=== PATIENT | male | born 1930 | race Caucasian/White ===

== ENCOUNTER → 2016-06-28 | Outpatient (CLI) | payer MEDICARE ==
--- NOTE | 2016-06-28 14:56 | CT ---
EXAMINATION TYPE: CT chest w con DATE OF EXAM: 06/28/2016 2:50 PM COMPARISON: NONE HISTORY: Thoracic aortic aneurysm CT DLP: 452.8 mGycm Automated exposure control for dose reduction was used. CONTRAST: CT scan of the chest is performed with IV Contrast, patient injected with 80 mL of Visipaque 320. FINDINGS: LUNGS: The lungs are grossly clear, there is no concerning parenchymal mass or nodule identified. T here is no pleural effusion or pneumothorax seen. The tracheobronchial tree is patent. MEDIASTINUM: There are no greater than 1 cm hilar or mediastinal lymph nodes. No pericardial effusi on is seen. Ascending thoracic aortic aneurysm is again noted and currently measures 4.[address] transverse dimension versus 4.5 cm previously. Mild scattered atheromatous changes noted. Aortic a rch and descending thoracic aorta are of normal caliber. No evidence for dissection or mediastinal he matoma. There is mild cardiomegaly. UPPER ABDOMEN: No significant abnormality appreciated. OTHER: No additional significant abnormality is seen. IMPRESSION: 1. Stable uncomplicated ascending thoracic aortic aneurysm.
--- NOTE | 2016-06-29 09:23 | ECHOF ---
Referral Reason:R01.0 benign cardiac murmur MEASUREMENTS -------- HEIGHT: 172.7 cm WEIGHT: 93.0 kg BP: 127/67 RVIDd: 2.7 cm (< 3.3) IVSd: 1.4 cm (0.6 - 1.1) LVIDd: 3.9 cm (3.9 - 5.3) LVPWd: 1.2 cm (0.6 - 1.1) IVSs: 1.9 cm LVIDs: 2.7 cm LVPWs: 1.7 cm LA Diam: 4.1 cm (2.7 - 3.8) LAESV Index (A-L): 19.70 ml/m Ao Diam: 3.3 cm (2.0 - 3.7) AV Cusp: 1.1 cm (1.5 - 2.6) LA Diam: 3.6 cm (2.7 - 3.8) MV EXCURSION: 12.495 mm (> 18.000) MV EF SLOPE: 71 mm/s (70 - 150) EPSS: 0.5 cm MV E Wili: 0.78 m/s MV DecT: 152 ms MV A Wili: 0.86 m/s MV E/A Ratio: 0.91 AV maxP.74 mmHg AV meanP.55 mmHg AR PHT: 618 ms RAP: 5.00 mmHg RVSP: 20.89 mmHg FINDINGS -------- Sinus rhythm with extra systolic beats. This was a technically adequate study. There is mild concentric left ventricular hypertrophy. Overall left ventricular systolic function is normal with, an EF between 55 - 60 %. The right ventricle is normal in size. Normal LA size by volume 22+/-6 ml/m2. The right atrium is normal in size. Aneurysmal Interatrial septum. Aortic valve is trileaflet and is mildly thickened. There is [id number] aortic regurgitation. There is mild aortic stenosis present. Peak/mean gradient across the Aortic Valve is 27.74mmHg / 14.55mmHg. The mitral valve leaflets are mildly thickened. Mild mitral annular calcification present. Mild mitral regurgitation is present. Mild tricuspid regurgitation present. Trace/mild (physiologic) pulmonic regurgitation. The aortic root size is normal. Normal inferior vena cava with normal inspiratory collapse consistent with estimated right atrial pressure of 5 mmHg. Echo free space may represent effusion or a pericardial fat pad. CONCLUSIONS -------- 1. Sinus rhythm with extra systolic beats. 2. There is [id number] aortic regurgitation. 3. There is mild aortic stenosis present. 4. Peak/mean gradient across the Aortic Valve is 27.74mmHg / 14.55mmHg. 5. The mitral valve leaflets are mildly thickened. 6. Mild mitral annular calcification present. 7. Mild mitral regurgitation is present. 8. Mild tricuspid regurgitation present. 9. Trace/mild (physiologic) pulmonic regurgitation. 10. The aortic root size is normal. 11. Normal inferior vena cava with normal inspiratory collapse consistent with estimated right atrial pressure of 5 mmHg. 12. This was a technically adequate study. 13. Echo free space may represent effusion or a pericardial fat pad. 14. There is mild concentric left ventricular hypertrophy. 15. Overall left ventricular systolic function is normal with, an EF between 55 - 60 %. 16. The right ventricle is normal in size. 17. Normal LA size by volume 22+/-6 ml/m2. 18. The right atrium is normal in size. 19. Aneurysmal Interatrial septum. 20. Aortic valve is trileaflet and is mildly thickened. INDEX CLERK: Abigail Ritchie RDCS
== END | disposition home or self-care (01) ==
LOC: RADCTMAIN 13:42
PROVIDERS: ATTEND Family Medicine
DX: I71.2 Thoracic aortic aneurysm, without rupture (principal); I35.2 Nonrheumatic aortic (valve) stenosis with insufficiency; I34.0 Nonrheumatic mitral (valve) insufficiency; I36.1 Nonrheumatic tricuspid (valve) insufficiency; I37.1 Nonrheumatic pulmonary valve insufficiency; I34.8 Other nonrheumatic mitral valve disorders; I51.7 Cardiomegaly; I25.3 Aneurysm of heart; I49.3 Ventricular premature depolarization; R01.0 Benign and innocent cardiac murmurs
CPT/HCPCS: 93306; 82565; 84520; 71260; 36415; Q9967

== ENCOUNTER → 2017-07-09 | Outpatient (CLI) | payer MEDICARE ==
--- NOTE | 2017-07-09 16:03 | CT ---
EXAMINATION TYPE: CT angio chest DATE OF EXAM: 07/09/2017 COMPARISON: 06/28/2016 HISTORY: Follow up for thoracic aortic aneurysm. CT DLP: 519 mGycm. Automated Exposure Control for Dose Reduction was Utilized. CONTRAST: CTA scan of the thorax is performed with IV Contrast, patient injected with 100ml mL of Isovue 370, p ulmonary embolism protocol. MIP Images are created on CT scanner and reviewed. FINDINGS: LUNGS: The lungs are grossly clear, there is no concerning parenchymal mass or nodule identified. T here is no pleural effusion or pneumothorax seen. The tracheobronchial tree is patent. MEDIASTINUM: There is a conventional branch pattern of the great vessels from the aortic arch. There is no evidence of aortic dissection. No central pulmonary embolus. Main pulmonary artery is enlarged measuring 3.7 cm. Aortic root just above the sinotubular junction is nonenlarged measuring 3.7 cm. As cending thoracic aorta at the level of main pulmonary artery is enlarged again measuring 4.5 cm on se jo 8 image 14. There are no greater than 1 cm hilar or mediastinal lymph nodes. No cardiomegaly or pericardial effusion is seen. Minimal coronary artery calcifications are noted. OTHER: Moderate multilevel degenerative changes of the visualized thoracolumbar spine are seen. IMPRESSION: 1. Stable ascending thoracic aortic aneurysm. No evidence of dissection. 2. Enlargement of the main pulmonary artery suggestive of underlying pulmonary arterial hypertension.
--- NOTE | 2017-07-10 10:46 | ECHOF ---
Referral Reason:I71.2 Thoracic aortic aneurysm, without rupture MEASUREMENTS -------- HEIGHT: 170.2 cm WEIGHT: 93.0 kg BP: IVSd: 0.9 cm (0.6 - 1.1) LVIDd: 4.9 cm (3.9 - 5.3) LVPWd: 1.1 cm (0.6 - 1.1) IVSs: 1.6 cm LVIDs: 2.6 cm LVPWs: 1.5 cm LAESV Index (A-L): 17.15 ml/m Ao Diam: 3.5 cm (2.0 - 3.7) AV Cusp: 1.4 cm (1.5 - 2.6) LA Diam: 2.5 cm (2.7 - 3.8) MV EXCURSION: 15.618 mm (> 18.000) MV EF SLOPE: 41 mm/s (70 - 150) EPSS: 0.6 cm MV E Wili: 0.90 m/s MV DecT: 252 ms MV A Wili: 0.99 m/s MV E/A Ratio: 0.91 AV maxP.15 mmHg AV meanP.49 mmHg AR PHT: 428 ms RAP: 5.00 mmHg RVSP: 34.52 mmHg FINDINGS -------- Sinus rhythm with extra systolic beats. This was a technically good study. The left ventricular size is normal. Left ventricular wall thickness is normal. Overall left vent ricular systolic function is normal with, an EF between 55 - 60 %. The right ventricle is normal in size and function. The left atrium is normal in size. The right atrium is normal in size. Possible PFO Aortic valve is trileaflet and is mildly thickened. There is mild aortic regurgitation. There is mild aortic stenosis present. Peak/mean gradient across the Aortic Valve is 23.15mmHg / 16.49mmHg. Mild mitral regurgitation is present. Mild tricuspid regurgitation present. The right ventricular systolic pressure, as measured by Doppl er, is 34.52mmHg. Pulmonic valve appears structurally normal. The aortic root size is normal. Normal inferior vena cava with normal inspiratory collapse consistent with estimated right atrial pre ssure of 5 mmHg. There is a trivial pericardial effusion present. CONCLUSIONS -------- 1. Sinus rhythm with extra systolic beats. 2. This was a technically good study. 3. The left ventricular size is normal. 4. Left ventricular wall thickness is normal. 5. Overall left ventricular systolic function is normal with, an EF between 55 - 60 %. 6. The right ventricle is normal in size and function. 7. The left atrium is normal in size. 8. The right atrium is normal in size. 9. Possible PFO 10. Aortic valve is trileaflet and is mildly thickened. 11. There is mild aortic regurgitation. 12. There is mild aortic stenosis present. 13. Peak/mean gradient across the Aortic Valve is 23.15mmHg / 16.49mmHg. 14. Mild mitral regurgitation is present. 15. Mild tricuspid regurgitation present. 16. The right ventricular systolic pressure, as measured by Doppler, is 34.52mmHg. 17. Pulmonic valve appears structurally normal. 18. The aortic root size is normal. 19. Normal inferior vena cava with normal inspiratory collapse consistent with estimated right atrial pressure of 5 mmHg. 20. There is a trivial pericardial effusion present. TEST CONDUCTOR: Kasia Jones RDCS
== END | disposition home or self-care (01) ==
LOC: RADECHMAIN 14:40
PROVIDERS: ATTEND Family Medicine
DX: I71.2 Thoracic aortic aneurysm, without rupture (principal); I08.3 Combined rheumatic disorders of mitral, aortic and tricuspid valves; I77.89 Other specified disorders of arteries and arterioles; I31.3 Pericardial effusion (noninflammatory)
CPT/HCPCS: 93306; 82565; 84520; 71275; 36415; Q9967

== ENCOUNTER → 2018-09-07 | Outpatient (CLI) | payer MEDICARE ==
--- NOTE | 2018-09-07 14:45 | US ---
"EXAMINATION TYPE: US venous doppler duplex LE RT DATE OF EXAM: 09/07/2018 2:18 PM COMPARISON: NONE CLINICAL HISTORY: R60.0 Edema. Right leg swelling intermittently x 3 to 4 weeks; chronic right knee infection; right hip replacement with titanium sonia; HX of thoracic AA per patient SIDE PERFORMED: Right TECHNIQUE: The lower extremity deep venous system is examined utilizing real time linear array sonog elvin with graded compression, doppler sonography and color-flow sonography. VESSELS IMAGED: Common Femoral Vein Deep Femoral Vein Greater Saphenous Vein * Femoral Vein Popliteal Vein Small Saphenous Vein * Proximal Calf Veins (* superficial vessels) Grayscale, color doppler, spectral doppler imaging performed of the deep veins of the right lower ext remity. There is normal flow, compressibility, vascular waveforms. Right Leg: Negative for DVT Right Popliteal Artery Aneurysm is noted = 5.3 x 2.8 x 2.6cm. IMPRESSION: 1. No sonographic evidence of deep venous thrombosis within the right lower extremity. 2. 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 A Yellow level critical message alert has been initiated for Power Chamberlain DO via the [employer] | Critical Results System on 09/07/2018 2:43 PM. This message alert has been sent to Power hooper DO via the preferences provided by the clinician for the receipt of Radiology Critical Findings. Elroy essage ID [id number]."
--- NOTE | 2018-09-07 17:54 | CT ---
EXAMINATION TYPE: CT angio chest DATE OF EXAM: 09/07/2018 COMPARISON: 07/09/2017 HISTORY: 88-year-old male Thoracic aortic aneurysm. TECHNIQUE: Contiguous axial scanning of the chest performed without and with IV Contrast, patient inj ected with 100 mL of Isovue 370. Delayed coronal/sagittal MIP reconstructions performed. 3-D reconstr uctions generated on a dedicated independent workstation. CT DLP: 1019.9 mGycm Automated exposure control for dose reduction was used. FINDINGS: Heart upper limits of normal in size without pericardial effusion. Ascending aorta mildly aneurysmal at 4.2 cm. Proximal arch is ectatic at 3.9 cm. Conventional vessel branching anatomy. Upper descending thoracic aorta mildly aneurysmal at 3.5 cm. Tortuous descending thoracic aorta. Overall findings are relatively unchanged. Initial noncontrast sequence shows no evidence for acute intramural hematoma. No evidence for aortic dissection. Large caliber to the main right and left pulmonary arteries at 3.2 and 2.9 cm, respectively, suggesti ng underlying pulmonary arterial hypertension. No thoracic lymphadenopathy by CT size criteria. Strandy atelectasis in the lower lungs. No consolidation or pleural effusion. Visualized upper abdomen shows a heterogeneously enhancing 4.2 x 3.1 cm mass lateral left kidney vers us 3.2 x 2.6 cm in retrospect, previously blending with the renal parenchyma. Bones: Moderate to advanced multilevel disc/endplate degenerative change. IMPRESSION: 1. NOTE: SUSPICIOUS HETEROGENEOUSLY ENHANCING SOLID MASS LATERAL LEFT KIDNEY MEASURING 4.2 X 3.1 CM. IN RETROSPECT, THIS WAS SMALLER (3.2 X 2.6 CM) AND BLENDED WITH THE RENAL PARENCHYMA ON THE PRIOR EX AM. FINDINGS HIGHLY SUSPICIOUS FOR RCC. FURTHER APPROPRIATE WORKUP AND MANAGEMENT RECOMMENDED. 2. STABLE MILDLY ANEURYSMAL THORACIC AORTA (ASCENDING 4.2 CM AND UPPER DESCENDING 3.5 CM). 3. FINDINGS SUGGEST UNDERLYING PULMONARY ARTERIAL HYPERTENSION.
== END | disposition home or self-care (01) ==
LOC: RADUSWWP 13:46
PROVIDERS: ATTEND Family Medicine
DX: I71.2 Thoracic aortic aneurysm, without rupture (principal); R60.0 Localized edema; I72.4 Aneurysm of artery of lower extremity
CPT/HCPCS: 82565; 84520; 93971; 71275; 36415; Q9967

== ENCOUNTER → 2018-09-29 | Outpatient (CLI) | payer MEDICARE ==
--- NOTE | 2018-09-30 11:27 | ECHOF ---
Referral Reason:I38 Endocarditis MEASUREMENTS -------- HEIGHT: 170.2 cm WEIGHT: 90.7 kg BP: 122/73 RVIDd: 3.3 cm (< 3.3) IVSd: 1.4 cm (0.6 - 1.1) LVIDd: 4.5 cm (3.9 - 5.3) LVPWd: 1.2 cm (0.6 - 1.1) IVSs: 1.9 cm LVIDs: 3.0 cm LVPWs: 1.4 cm LA Diam: 3.7 cm (2.7 - 3.8) LAESV Index (A-L): 26.29 ml/m Ao Diam: 3.5 cm (2.0 - 3.7) AV Cusp: 1.1 cm (1.5 - 2.6) EPSS: 0.7 cm MV E Wili: 0.62 m/s MV DecT: 328 ms MV A Wili: 0.80 m/s MV E/A Ratio: 0.78 AV maxP.90 mmHg AV meanP.26 mmHg AR PHT: 1052 ms RAP: 5.00 mmHg RVSP: 32.60 mmHg MV EF SLOPE: 43.70 mm/s (70 - 150) MV EXCURSION: 1.50 cm (> 18.000) FINDINGS -------- Sinus rhythm. This was a technically adequate study. The left ventricular size is normal. There is moderate concentric left ventricular hypertrophy. O verall left ventricular systolic function is normal with, an EF between 60 - 65 %. The right ventricle is mildly enlarged. Left atrium is normal size by volume. The right atrium is normal in size and function. Interatrial and interventricular septum intact. Aortic valve is trileaflet and is moderately thickened. There is mild aortic regurgitation. There is moderate aortic stenosis present. Peak/mean gradient across the valve is 36.90mmHg / 21.26mmHg. Mild mitral regurgitation is present. Mild tricuspid regurgitation present. Right ventricular systolic pressure is normal at < 35 mmHg. Trace/mild (physiologic) pulmonic regurgitation. The aortic root size is normal. The inferior vena cava was not well visualized. There is no pericardial effusion. CONCLUSIONS -------- 1. Sinus rhythm. 2. This was a technically adequate study. 3. The left ventricular size is normal. 4. There is moderate concentric left ventricular hypertrophy. 5. Overall left ventricular systolic function is normal with, an EF between 60 - 65 %. 6. The right ventricle is mildly enlarged. 7. Left atrium is normal size by volume. 8. The right atrium is normal in size and function. 9. Interatrial and interventricular septum intact. 10. Aortic valve is trileaflet and is moderately thickened. 11. There is mild aortic regurgitation. 12. There is moderate aortic stenosis present. 13. Peak/mean gradient across the valve is 36.90mmHg / 21.26mmHg. 14. Mild mitral regurgitation is present. 15. Mild tricuspid regurgitation present. 16. Right ventricular systolic pressure is normal at < 35 mmHg. 17. Trace/mild (physiologic) pulmonic regurgitation. 18. The aortic root size is normal. 19. The inferior vena cava was not well visualized. 20. There is no pericardial effusion. ELEVATOR CONSTRUCTOR HELPER: JOHNATHON Hoover
== END | disposition home or self-care (01) ==
LOC: RADECHMAIN 12:48
PROVIDERS: ATTEND Family Medicine
DX: I08.3 Combined rheumatic disorders of mitral, aortic and tricuspid valves (principal)
CPT/HCPCS: 93306

== ENCOUNTER → 2018-10-07 | Outpatient (CLI) | payer MEDICARE ==
--- NOTE | 2018-10-07 13:52 | CT ---
CT angiogram of the right lower extremity HISTORY: Popliteal aneurysm Helical acquisition obtained from the mid abdomen through the lower extremities pre- and postadminist ration of 125 cc Isovue 370 IV. Three-dimensional reconstructions performed on an alternate workstati on. No comparisons The distal abdominal aorta shows atheromatous change. Common iliac arteries mildly ectatic. The dista l aorta, common iliac arteries, internal and external iliac arteries are patent, the common femoral, deep and superficial femoral arteries are patent. The central right popliteal artery measures approxi mately 18 mm and shows some eccentric plaque, at the level of the knee joint there is artifact due to patient's knee prosthesis. The artery is thought to measure approximately 3 cm with eccentric, mariaa ar plaque at the level of the knee. Peripheral to this level there is poor opacification of the outfl ow vasculature, three-dimensional reconstruction show patent flow however. There is extensive subcuta neous edema present within the right leg. The left popliteal artery is patent. Portions are obscured as on the right. There are outflow vessels seen, the peroneal and posterior tibial arteries are thoug ht to enhance into the mid to distal leg with certainty, anterior tibial artery not as well seen ojeda ion, reconstructions show patency of the outflow into the foot about the anterior and posterior tibia l arteries bilaterally. The patient shows right hip arthroplasty additionally. There is apparent bone erosion involving the a cetabulum, screws project into the iliac is musculature. Ectopic new bone formation is present about the right hip. Femoral component extends to the level of the knee, large amount of fragmented bone is present, the right femur is not intact. Large amount of bone resorption, erosion. Sclerotic change present at the sacroiliac joints, likely degenerative. Degenerative disc changes are present in the lower lumbar spine. There is associated facet arthropathy. Diverticular changes assoc iated with the sigmoid colon. Prostate shows associated calcification. IMPRESSION: No exam is limited by patient's knee arthroplasties. Right popliteal artery aneurysm. Sub cutaneous edema. The right femur is largely been resorbed, the prosthesis extends from the hip to the knee as described.
== END | disposition home or self-care (01) ==
LOC: RADCTMAIN 08:38
PROVIDERS: ATTEND Thoracic Surgery (Cardiothoracic Vascular Surgery)
DX: I72.4 Aneurysm of artery of lower extremity (principal); Z96.653 Presence of artificial knee joint, bilateral; Z96.641 Presence of right artificial hip joint
CPT/HCPCS: 82565; 84520; 36415; 73706; Q9967

== ENCOUNTER 2018-11-20 22:50 | Inpatient (IN) | payer MEDICARE ==
[2018-11-20] MEDS ORDERED: SODIUM CHLORIDE 0.9% 1,000 ML IV STA (23:32)
[2018-11-21 00:06] LABS: Partial Thromboplastin Time 23.9 sec (22.0-30.0); Prothrombin Time 10.6 sec (9.0-12.0)
[2018-11-21 00:07] LABS: Basophils # (A) 0.1 k/uL (0-0.2); Basophils % (A) 1 %; Eosinophils # (A) 0.5 k/uL (0-0.7); Eosinophils % (A) 5 %; HCT 38.4 % (39.0-53.0); HGB 12.8 gm/dL (13.0-17.5); Lymphocytes # (A) 1.3 k/uL (1.0-4.8); Lymphocytes % (A) 13 %; MCH 30.1 pg (25.0-35.0); MCHC 33.4 g/dL (31.0-37.0); MCV 90.3 fL (80.0-100.0); Mean Platelet Volume 7.3; Monocytes # (A) 0.8 k/uL (0-1.0); Monocytes % (A) 8 %; Neutrophils # (A) 7.6 k/uL (1.3-7.7); Neutrophils % (A) 73 %; Platelet Count 307 k/uL (150-450); RBC 4.25 m/uL (4.30-5.90); RDW 14.5 % (11.5-15.5); WBC 10.4 k/uL (3.8-10.6)
[2018-11-21 00:09] LABS: Albumin 3.7 g/dL (3.5-5.0); Calcium 9.1 mg/dL (8.4-10.2); Magnesium 1.8 mg/dL (1.6-2.3); Potassium 4.9 mmol/L (3.5-5.1); Total Protein 6.7 g/dL (6.3-8.2)
[2018-11-21 01:14] LABS: Appearance,Urine Clear (Clear); Bilirubin,Urine Negative (Negative); Blood,Urine Negative (Negative); Color,Urine Yellow; Glucose,Urine (UA) Negative (Negative); Ketones,Urine Negative (Negative); Leukocyte Esterase,Urine Negative (Negative); Nitrite,Urine Negative (Negative); PH, Urine 5.5 (5.0-8.0); Protein,Urine Trace (Negative); Specific Gravity,Urine 1.045 (1.001-1.035); Urobilinogen,Urine <2.0 mg/dL (<2.0)
--- NOTE | 2018-11-21 01:48 | CT ---
EXAM: CT Angiography Chest With Intravenous Contrast CLINICAL HISTORY: Chest pain and abdominal pain. TECHNIQUE: Axial computed tomographic angiography images of the chest with intravenous contrast using pulmonary embolism protocol. CTDI is 12.3 mGy and DLP is 688 mGy-cm. This CT exam was performed using one or more of the following dose reduction techniques: automated exposure control, adjustment of the mA and/or kV according to patient size, and/or use of iterative reconstruction technique. MIP reconstructed images were created and reviewed. COMPARISON: 09/07/2018. FINDINGS: Pulmonary arteries: No central pulmonary embolism is noted. Limited evaluation of the peripheral branches of the pulmonary arteries which are grossly unremarkable. Aorta: Ascending thoracic aorta is dilated, unchanged from the previous study measuring 5.4 x 4.3 cm. Atherosclerotic disease of the thoracic aorta is noted. Lungs: Subsegmental atelectasis posteriorly at the lung bases. No mass. Pleural space: Unremarkable. No significant effusion. No pneumothorax. Heart: Mild cardiomegaly. No significant pericardial effusion. No evidence of RV dysfunction. 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 No acute fracture. No dislocation. Soft tissues: Unremarkable. Lymph nodes: Unremarkable. No enlarged lymph nodes. IMPRESSION: Dilatation of the ascending thoracic aorta, unchanged. No central or peripheral pulmonary embolism. Cardiomegaly. EXAM: CT Angiography Abdomen and Pelvis With Intravenous Contrast CLINICAL HISTORY: Chest pain and abdominal pain. TECHNIQUE: Axial computed tomographic angiography images of the abdomen and pelvis with intravenous contrast. CTDI is 12.3 mGy and DLP is 688 mGy-cm. This CT exam was performed using one or more of the following dose reduction techniques: automated exposure control, adjustment of the mA and/or kV according to patient size, and/or use of iterative reconstruction technique. MIP reconstructed images were created and reviewed. COMPARISON: None. FINDINGS: VASCULATURE: Aorta: Atherosclerotic disease of the abdominal aorta without change in caliber. Arthroscopic disease extends to involve the common iliac arteries. No abdominal aortic aneurysm. No dissection. Celiac trunk and mesenteric arteries: The celiac artery and SMA artery are well-visualized with normal flow demonstrated. Renal arteries are unremarkable. Renal arteries: See above. Iliac arteries: See above. Lung bases: Unremarkable. No mass. No consolidation. ABDOMEN: Liver: Mild fatty infiltration of the liver. Gallbladder and bile ducts: Unremarkable. No calcified stones. No ductal dilation. Pancreas: Unremarkable. No ductal dilation. No mass. Spleen: Unremarkable. No splenomegaly. Adrenals: Unremarkable. No mass. Kidneys and ureters: 4.5 x 3.5 cm enhancing mass lesion in the midpole region of the left kidney, similar to that noted on the previous study of 08/16/2018, highly suggestive of renal cell carcinoma. No hydronephrosis. Stomach and bowel: Diverticulosis. No obstruction. No mucosal thickening. PELVIS: Appendix: No findings to suggest acute appendicitis. Bladder: Unremarkable. No mass. Reproductive: Unremarkable as visualized. ABDOMEN and PELVIS: Intraperitoneal space: Unremarkable. No significant fluid collection. No free air. Bones/joints: Total left hip prosthesis is noted in place with associated artifact which limits evaluation of pelvic anatomy. No acute fracture. No dislocation. Soft tissues: 1 cm umbilical hernia containing mesenteric fat only. Lymph nodes: Unremarkable. No enlarged lymph nodes. 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 Multilevel vacuum disks. 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 Normal flow within the major branches arising from the abdominal aorta. Mass lesion within the left kidney highly worrisome for renal cell carcinoma.
[2018-11-21] MEDS ORDERED: fentaNYL (PF) 50 MCG/ML 2 ML AMP IVP STA (03:02)
[2018-11-21] MEDS ORDERED: NALOXONE 0.4 MG/ML 1 ML VIAL IV PRN (03:04)
--- NOTE | 2018-11-21 03:13 | ED ---
General Adult HPI - General Chief complaint: Fall Stated complaint: Weakness Source: patient, EMS Mode of arrival: EMS Limitations: no limitations - History of Present Illness Initial comments: The patient is an 88 male who presents to the emergency department after he almost sustained a fall at home. The patient states she was getting ready for bed. He was feeling extremely weak. He went into the bathroom when his knees gave out. He did slump over the bathroom sink. His son was able to catch him and lowered him to the floor. He did sustain ecchymosis to his bilateral forearms. He also had a right elbow skin tear. He states that he felt well today. He has been suffering from chronic right lower extremity swelling and pain because of an aneurysm. The patient also has chronic left hip pain. He states that it is "[id number]". He has an appointment with Dr. Virgen coming up. He states he was placed on morphine because of the pain 2 weeks ago. He's been taking the medications as directed. When EMS arrived to the house they found the patient to be hypotensive with a systolic blood pressure of 60. The patient was also tachycardic with a heart rate of 130s. The patient does describe a history of an aortic aneurysm. He is currently denying any chest pain or shortness of breath. No ripping or tearing sensation to his back. He denies any upper or lower extremity numbness. Weakness in his lower extremity has improved. He denies any paralysis. No lumbar or thoracic back pain. Denies any nausea or vomiting. No sick contacts or recent travel. No constipation, diarrhea, melanotic stools or hematochezia. No changes in his urination. There are no alleviating, precipitating or modifying factors - Related Data Home Medications Medication Instructions Recorded Confirmed Lisinopril [Zestril] 2.5 mg PO DAILY 02/01/15 11/20/18 Tamsulosin [Flomax] 0.4 mg PO BID@0100,1300 02/01/15 11/20/18 metFORMIN HCL [Glucophage] 500 mg PO DAILY 02/01/15 11/20/18 rOPINIRole HCL [Requip] 1 mg PO HS 02/01/15 11/20/18 Allergies Allergy/AdvReac Type Severity Reaction Status Date / Time acetaminophen [From Vicodin] Allergy Intermediate Hallucinati Verified 11/20/18 22:53 ons hydrocodone bitartrate Allergy Intermediate Hallucinati Verified 11/20/18 22:53 [From Vicodin] ons tramadol HCl [From Ultram] Allergy Intermediate Confusion Verified 11/20/18 22:53 ibuprofen [From Motrin] Allergy Unknown Verified 11/20/18 22:53 Review of Systems ROS Statement: Those systems with pertinent positive or pertinent negative responses have been documented in the HPI. ROS Other: All systems not noted in ROS Statement are negative. 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; MRSA-Right Hip Past Surgical History: Joint Replacement, Orthopedic Surgery, Prostate Surgery Additional Past Surgical History / Comment(s): rt hip replacement, rt femur replaced with titanium sonia Past Anesthesia/Blood Transfusion Reactions: No Reported Reaction Past Psychological History: No Psychological Hx Reported Smoking Status: Former smoker Past Alcohol Use History: Occasional Past Drug Use History: None Reported - Past Family History Mother Family Medical History: Cancer Additional Family Medical History / Comment(s): breast cancer General Exam Limitations: no limitations General appearance: alert, in no apparent distress Head exam: Present: atraumatic, normocephalic Eye exam: Present: normal appearance, PERRL, EOMI ENT exam: Present: normal oropharynx, mucous membranes dry Neck exam: Present: normal inspection. Absent: tenderness, meningismus Respiratory exam: Present: normal lung sounds bilaterally. Absent: respiratory distress, wheezes, rales, rhonchi Cardiovascular Exam: Present: normal rhythm, tachycardia GI/Abdominal exam: Present: soft. Absent: distended, tenderness Extremities exam: Present: other (significant edema RLE, pain to palpation with decreased ROM of the left hip. 2+ DP and PT pulses) Back exam: Present: normal inspection. Absent: tenderness Neurological exam: Present: alert, oriented X3 Psychiatric exam: Present: normal affect Skin exam: Present: warm, dry, intact, normal color Course Vital Signs 11/20/18 11/20/18 11/20/18 22:53 23:00 23:10 Temperature 98.4 F Pulse Rate 113 H 120 H 111 H Respiratory 18 18 18 Rate Blood Pressure 74/61 74/61 81/52 O2 Sat by Pulse 94 L 91 L 97 Oximetry 11/20/18 11/20/18 11/20/18 23:20 23:30 23:40 Temperature Pulse Rate 110 H 93 98 Respiratory 18 18 18 Rate Blood Pressure 83/42 98/65 94/54 O2 Sat by Pulse 97 98 98 Oximetry 11/21/18 11/21/18 11/21/18 00:20 01:20 01:45 Temperature Pulse Rate 98 84 82 Respiratory 16 18 20 Rate Blood Pressure 89/57 108/65 113/73 O2 Sat by Pulse 98 97 97 Oximetry 11/21/18 11/21/18 02:20 03:00 Temperature Pulse Rate 80 76 Respiratory 18 18 Rate Blood Pressure 103/62 116/89 O2 Sat by Pulse 97 Oximetry EKG Findings - EKG Comments: EKG Findings:: EKG demonstrates a sinus tachycardia with a ventricular rate of 114. AR interval 194. QRS 138. QTC 501. There is a right bundle branch block. No acute ST segment elevations or depressions concerning for ischemic changes Procedures - [facility] Protocol (Time Out) Nurse: Mae Little Medical Decision Making - Medical Decision Making Upon arrival the patient is placed in room 3. He is hooked up to continuous pulse ox and cardiac monitoring. As the patient is hypotensive with a history of aortic aneurysm I did a bedside ultrasound on the patient. There is no acute findings of pericardial tamponade or pericardial effusion. I did attempt to visualize the abdominal aorta however it is difficult due to overlying bowel gas. Patient does have lower extremity pulses which are found by Doppler. Peripheral IV had been established. The patient received 100 mL of normal saline prior to coming to the ED. I did provide the patient with the remainder of the 500 bag. Laboratory studies were conducted. I did recommend sending the patient over for CT of his abdomen and pelvis with contrast without waiting for labs because of his reported history. The patient's did give verbal consent for this. Upon return of laboratory studies is remarkable for a lactic acid of 3.4. CT of the patient's abdomen and pelvis demonstrates no acute aneurysmal rupture or dissection. There is a suspicious left renal mass concerning for carcinoma. I did recommend sending the patient back over for a left hip and pelvis x-ray as well as a lumbar x-ray because of his reported left hip pain. These are performed and the results are reviewed. I will continue the patient on 100 mL of fluid per hour. His blood pressure did improve. I do believe that the pat alexisnt's hypotension is secondary to recent addition of morphine to his medication regimen. The patient is complaining of left hip pain. He did provide him with 50 g of fentanyl. I did recommend admission to the hospital in order to any to trend the patient's blood pressure. The patient did agree to this. He will be admitted to Dr. Brown. The patient remained in hemodynamically stable condi tion and was transported to floor - Lab Data Result diagrams: 11/22/18 05:41 11/23/18 06:12 Lab Results 11/20/18 11/20/18 11/20/18 Range/Units 23:00 23:00 23:00 WBC 10.4 (3.8-10.6) k/uL RBC 4.25 L (4.30-5.90) m/uL Hgb 12.8 L (13.0-17.5) gm/dL Hct 38.4 L (39.0-53.0) % MCV 90.3 (80.0-100.0) fL MCH 30.1 (25.0-35.0) pg MCHC 33.4 (31.0-37.0) g/dL RDW 14.5 (11.5-15.5) % Plt Count 307 (150-450) k/uL Neutrophils % 73 % Lymphocytes % 13 % Monocytes % 8 % Eosinophils % 5 % Basophils % 1 % Neutrophils # 7.6 (1.3-7.7) k/uL Lymphocytes # 1.3 (1.0-4.8) k/uL Monocytes # 0.8 (0-1.0) k/uL Eosinophils # 0.5 (0-0.7) k/uL Basophils # 0.1 (0-0.2) k/uL PT (9.0-12.0) sec INR (<1.2) APTT (22.0-30.0) sec Sodium 139 (137-145) mmol/L Potassium 4.9 (3.5-5.1) mmol/L Chloride 107 (98-107) mmol/L Carbon Dioxide 17 L (22-30) mmol/L Anion Gap 15 mmol/L BUN 35 H (9-20) mg/dL Creatinine 1.30 H (0.66-1.25) mg/dL Est GFR (CKD-EPI)AfAm 57 (>60 ml/min/1.73 sqM) Est GFR (CKD-EPI)NonAf 49 (>60 ml/min/1.73 sqM) Glucose 163 H (74-99) mg/dL Lactic Ac Sepsis Rflx Plasma Lactic Acid Jb 3.4 H* (0.7-2.0) mmol/L Calcium 9.1 (8.4-10.2) mg/dL Magnesium 1.8 (1.6-2.3) mg/dL Total Bilirubin 1.0 (0.2-1.3) mg/dL AST 30 (17-59) U/L ALT 26 (21-72) U/L Alkaline Phosphatase 97 (38-126) U/L Troponin I (0.000-0.034) ng/mL NT-Pro-B Natriuret Pep pg/mL Total Protein 6.7 (6.3-8.2) g/dL Albumin 3.7 (3.5-5.0) g/dL Urine Color Urine Appearance (Clear) Urine pH (5.0-8.0) Ur Specific [place] (1.001-1.035) Urine Protein (Negative) Urine Glucose (UA) (Negative) Urine Ketones (Negative) Urine Blood (Negative) Urine Nitrite (Negative) Urine Bilirubin (Negative) Urine Urobilinogen (<2.0) mg/dL Ur Leukocyte Esterase (Negative) Blood Type Blood Type Confirm Blood Type Recheck Bld Type Recheck Status Antibody Screen Spec Expiration Date 11/20/18 11/20/18 11/20/18 Range/Units 23:00 23:00 23:00 WBC (3.8-10.6) k/uL RBC (4.30-5.90) m/uL Hgb (13.0-17.5) gm/dL Hct (39.0-53.0) % MCV (80.0-100.0) fL MCH (25.0-35.0) pg MCHC (31.0-37.0) g/dL RDW (11.5-15.5) % Plt Count (150-450) k/uL Neutrophils % % Lymphocytes % % Monocytes % % Eosinophils % % Basophils % % Neutrophils # (1.3-7.7) k/uL Lymphocytes # (1.0-4.8) k/uL Monocytes # (0-1.0) k/uL Eosinophils # (0-0.7) k/uL Basophils # (0-0.2) k/uL PT 10.6 (9.0-12.0) sec INR 1.0 (<1.2) APTT 23.9 (22.0-30.0) sec Sodium (137-145) mmol/L Potassium (3.5-5.1) mmol/L Chloride (98-107) mmol/L Carbon Dioxide (22-30) mmol/L Anion Gap mmol/L BUN (9-20) mg/dL Creatinine (0.66-1.25) mg/dL Est GFR (CKD-EPI)AfAm (>60 ml/min/1.73 sqM) Est GFR (CKD-EPI)NonAf (>60 ml/min/1.73 sqM) Glucose (74-99) mg/dL Lactic Ac Sepsis Rflx Plasma Lactic Acid Jb (0.7-2.0) mmol/L Calcium (8.4-10.2) mg/dL Magnesium (1.6-2.3) mg/dL Total Bilirubin (0.2-1.3) mg/dL AST (17-59) U/L ALT (21-72) U/L Alkaline Phosphatase (38-126) U/L Troponin I 0.027 (0.000-0.034) ng/mL NT-Pro-B Natriuret Pep 1040 pg/mL Total Protein (6.3-8.2) g/dL Albumin (3.5-5.0) g/dL Urine Color Urine Appearance (Clear) Urine pH (5.0-8.0) Ur Specific [place] (1.001-1.035) Urine Protein (Negative) Urine Glucose (UA) (Negative) Urine Ketones (Negative) Urine Blood (Negative) Urine Nitrite (Negative) Urine Bilirubin (Negative) Urine Urobilinogen (<2.0) mg/dL Ur Leukocyte Esterase (Negative) Blood Type Blood Type Confirm Blood Type Recheck Bld Type Recheck Status Antibody Screen Spec Expiration Date 11/20/18 11/20/18 11/21/18 Range/Units 23:30 23:35 00:15 WBC (3.8-10.6) k/uL RBC (4.30-5.90) m/uL Hgb (13.0-17.5) gm/dL Hct (39.0-53.0) % MCV (80.0-100.0) fL MCH (25.0-35.0) pg MCHC (31.0-37.0) g/dL RDW (11.5-15.5) % Plt Count (150-450) k/uL Neutrophils % % Lymphocytes % % Monocytes % % Eosinophils % % Basophils % % Neutrophils # (1.3-7.7) k/uL Lymphocytes # (1.0-4.8) k/uL Monocytes # (0-1.0) k/uL Eosinophils # (0-0.7) k/uL Basophils # (0-0.2) k/uL PT (9.0-12.0) sec INR (<1.2) APTT (22.0-30.0) sec Sodium (137-145) mmol/L Potassium (3.5-5.1) mmol/L Chloride (98-107) mmol/L Carbon Dioxide (22-30) mmol/L Anion Gap mmol/L BUN (9-20) mg/dL Creatinine (0.66-1.25) mg/dL Est GFR (CKD-EPI)AfAm (>60 ml/min/1.73 sqM) Est GFR (CKD-EPI)NonAf (>60 ml/min/1.73 sqM) Glucose (74-99) mg/dL Lactic Ac Sepsis Rflx Y Plasma Lactic Acid Jb (0.7-2.0) mmol/L Calcium (8.4-10.2) mg/dL Magnesium (1.6-2.3) mg/dL Total Bilirubin (0.2-1.3) mg/dL AST (17-59) U/L ALT (21-72) U/L Alkaline Phosphatase (38-126) U/L Troponin I (0.000-0.034) ng/mL NT-Pro-B Natriuret Pep pg/mL Total Protein (6.3-8.2) g/dL Albumin (3.5-5.0) g/dL Urine Color Urine Appearance (Clear) Urine pH (5.0-8.0) Ur Specific [place] (1.001-1.035) Urine Protein (Negative) Urine Glucose (UA) (Negative) Urine Ketones (Negative) Urine Blood (Negative) Urine Nitrite (Negative) Urine Bilirubin (Negative) Urine Urobilinogen (<2.0) mg/dL Ur Leukocyte Esterase (Negative) Blood Type B Positive Blood Type Confirm B Positive Blood Type Recheck No Previous Record Bld Type Recheck Status CABO Indicated Antibody Screen NEGATIVE Spec Expiration Date 11/23/2018 - 233411/21/18 Range/Units 00:50 WBC (3.8-10.6) k/uL RBC (4.30-5.90) m/uL Hgb (13.0-17.5) gm/dL Hct (39.0-53.0) % MCV (80.0-100.0) fL MCH (25.0-35.0) pg MCHC (31.0-37.0) g/dL RDW (11.5-15.5) % Plt Count (150-450) k/uL Neutrophils % % Lymphocytes % % Monocytes % % Eosinophils % % Basophils % % Neutrophils # (1.3-7.7) k/uL Lymphocytes # (1.0-4.8) k/uL Monocytes # (0-1.0) k/uL Eosinophils # (0-0.7) k/uL Basophils # (0-0.2) k/uL PT (9.0-12.0) sec INR (<1.2) APTT (22.0-30.0) sec Sodium (137-145) mmol/L Potassium (3.5-5.1) mmol/L Chloride (98-107) mmol/L Carbon Dioxide (22-30) mmol/L Anion Gap mmol/L BUN (9-20) mg/dL Creatinine (0.66-1.25) mg/dL Est GFR (CKD-EPI)AfAm (>60 ml/min/1.73 sqM) Est GFR (CKD-EPI)NonAf (>60 ml/min/1.73 sqM) Glucose (74-99) mg/dL Lactic Ac Sepsis Rflx Plasma Lactic Acid Jb (0.7-2.0) mmol/L Calcium (8.4-10.2) mg/dL Magnesium (1.6-2.3) mg/dL Total Bilirubin (0.2-1.3) mg/dL AST (17-59) U/L ALT (21-72) U/L Alkaline Phosphatase (38-126) U/L Troponin I (0.000-0.034) ng/mL NT-Pro-B Natriuret Pep pg/mL Total Protein (6.3-8.2) g/dL Albumin (3.5-5.0) g/dL Urine Color Yellow Urine Appearance Clear (Clear) Urine pH 5.5 (5.0-8.0) Ur Specific [place] 1.045 H (1.001-1.035) Urine Protein Trace H (Negative) Urine Glucose (UA) Negative (Negative) Urine Ketones Negative (Negative) Urine Blood Negative (Negative) Urine Nitrite Negative (Negative) Urine Bilirubin Negative (Negative) Urine Urobilinogen <2.0 (<2.0) mg/dL Ur Leukocyte Esterase Negative (Negative) Blood Type Blood Type Confirm Blood Type Recheck Bld Type Recheck Status Antibody Screen Spec Expiration Date Disposition Clinical Impression: Fall, Syncope, Aortic aneurysm, Left hip pain, Drug side effects Disposition: ADMITTED IP TO THIS [facility] Condition: Serious Is patient prescribed a controlled substance at d/c from ED?: No Decision to Admit Reason: Admit from EC Decision Date: 11/21/18 Decision Time: 03:13
--- NOTE | 2018-11-21 04:06 | XR ---
EXAM: XR Lumbar Spine, 4 or 5 Views CLINICAL HISTORY: Back pain. TECHNIQUE: Frontal, lateral and oblique views of the lumbar spine. COMPARISON: CT imaging performed on 11/20/2018. FINDINGS: Vertebrae: There is minimal grade 1 retrolisthesis of L4 upon L5 vertebral body. There is minimal retrolisthesis of L3 upon L4 vertebral body. There is minimal retrolisthesis of L2 upon L3 vertebral body. Decrease in height of the L3 vertebral body is noted of indeterminate age. There is levoscoliosis. No acute fracture. Disc spaces: Severe degenerative disc disease is noted. Multilevel vacuum discs are noted. Soft tissues: Unremarkable. IMPRESSION: Advanced degenerative disc disease of the lumbar spine. Minimal decrease in height of the L3 vertebral body of indeterminate age. Magnetic residence imaging will provide additional information.
--- NOTE | 2018-11-21 04:09 | XR ---
EXAM: XR Left Hip With Pelvis When Performed, 1 View CLINICAL HISTORY: Hip pain. TECHNIQUE: Frontal view of the left hip, with pelvis when performed. COMPARISON: None. FINDINGS: Bones/joints: Total right hip prosthesis is noted in place and a normal anatomic position. There is flattening of the left femoral head suggestive of possible avascular necrosis. Advanced osteoarthritic changes about the left hip joint are noted. Mild to moderate osteoarthritic changes about the sacroiliac joints are noted. Advanced degenerative disc disease of the lower lumbar spine is noted. No acute fracture. No dislocation. Soft tissues: Unremarkable. IMPRESSION: Flattening of the left femoral head. Advanced osteoarthritic changes about the left hip joint. 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 Correlation with history is advised.
[2018-11-21 04:24] VITALS: BMI 30.9
[2018-11-21 04:32] LABS: Glucose,Whole Blood 115 mg/dL (75-99)
[2018-11-21] MEDS: INSULIN ASPART (NovoLOG) 100 UNIT/ML VIAL SQ SCH ×4 (08:35→20:47)
[2018-11-21 08:36] LABS: Glucose,Whole Blood 112 mg/dL (75-99)
[2018-11-21] MEDS: metFORMIN 500 MG TAB PO SCH ×2 (08:40→08:42)
[2018-11-21] MEDS ORDERED: LISINOPRIL 2.5 MG TAB PO SCH (09:00)
--- NOTE | 2018-11-21 12:05 | P.CNOR ---
History of Present Illness - HPI Consult date: 11/21/18 Consult reason: other (Left hip pain) History of present illness: The patient's an 88-year-old male who presents with increasing left hip pain. He notes his leg gave out on him yesterday, however he did not fall. He has had progressive left groin and thigh pain since. He has a difficult time weightbearing. Normally he is a community ambulator with a walker. 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; MRSA-Right Hip Past Surgical History: Joint Replacement, Orthopedic Surgery, Prostate Surgery Additional Past Surgical History / Comment(s): rt hip replacement with subsequent infection, rt femur replaced with titanium sonia Past Anesthesia/Blood Transfusion Reactions: No Reported Reaction Past Psychological History: No Psychological Hx Reported Smoking Status: Former smoker Past Alcohol Use History: Occasional Past Drug Use History: None Reported - Past Family History Mother Family Medical History: Cancer Additional Family Medical History / Comment(s): breast cancer Medications and Allergies Home Medications Medication Instructions Recorded Confirmed Type Lisinopril [Zestril] 2.5 mg PO DAILY 02/01/15 11/20/18 History Tamsulosin [Flomax] 0.4 mg PO BID@0100,1300 02/01/15 11/20/18 History metFORMIN HCL [Glucophage] 500 mg PO DAILY 02/01/15 11/20/18 History rOPINIRole HCL [Requip] 1 mg PO HS 02/01/15 11/20/18 History Allergies Allergy/AdvReac Type Severity Reaction Status Date / Time acetaminophen [From Vicodin] Allergy Intermediate Hallucinati Verified 11/20/18 22:53 ons hydrocodone bitartrate Allergy Intermediate Hallucinati Verified 11/20/18 22:53 [From Vicodin] ons tramadol HCl [From Ultram] Allergy Intermediate Confusion Verified 11/20/18 22:53 ibuprofen [From Motrin] Allergy Unknown Verified 11/20/18 22:53 Physical Examination - Hip left Gait: other (Currently nonambulatory) Tenderness with palpation: anterior Pain with motion: internal rotation and hip flexion ROM: extension: 0 degrees ROM: flexion: 70 degrees ROM: abduction: 20 degrees ROM: adduction: 10 degrees ROM: internal rotation: 0 degrees ROM: external rotation: 40 degrees Strength: extension: 5/5 Strength: flexion: 5/5 Strength: abduction: 5/5 Strength: adduction: 5/5 Strength: internal rotation: 5/5 Strength: external rotation: 5/5 (Stocking paresthesias bilaterally) Results - Labs Labs: Abnormal Lab Results - Last 24 Hours (Table) 11/20/18 11/20/18 11/20/18 Range/Units 23:00 23:00 23:00 RBC 4.25 L (4.30-5.90) m/uL Hgb 12.8 L (13.0-17.5) gm/dL Hct 38.4 L (39.0-53.0) % Carbon Dioxide 17 L (22-30) mmol/L BUN 35 H (9-20) mg/dL Creatinine 1.30 H (0.66-1.25) mg/dL Glucose 163 H (74-99) mg/dL POC Glucose (mg/dL) (75-99) mg/dL Plasma Lactic Acid Jb 3.4 H* (0.7-2.0) mmol/L Troponin I (0.000-0.034) ng/mL Ur Specific [place] (1.001-1.035) Urine Protein (Negative) 11/21/18 11/21/18 11/21/18 Range/Units 00:50 04:29 06:44 RBC (4.30-5.90) m/uL Hgb (13.0-17.5) gm/dL Hct (39.0-53.0) % Carbon Dioxide (22-30) mmol/L BUN (9-20) mg/dL Creatinine (0.66-1.25) mg/dL Glucose (74-99) mg/dL POC Glucose (mg/dL) 115 H (75-99) mg/dL Plasma Lactic Acid Jb (0.7-2.0) mmol/L Troponin I 0.138 H* (0.000-0.034) ng/mL Ur Specific [place] 1.045 H (1.001-1.035) Urine Protein Trace H (Negative) 11/21/18 Range/Units 08:35 RBC (4.30-5.90) m/uL Hgb (13.0-17.5) gm/dL Hct (39.0-53.0) % Carbon Dioxide (22-30) mmol/L BUN (9-20) mg/dL Creatinine (0.66-1.25) mg/dL Glucose (74-99) mg/dL POC Glucose (mg/dL) 112 H (75-99) mg/dL Plasma Lactic Acid Jb (0.7-2.0) mmol/L Troponin I (0.000-0.034) ng/mL Ur Specific [place] (1.001-1.035) Urine Protein (Negative) H & H 11/20/18 Range/Units 23:00 Hgb 12.8 L (13.0-17.5) gm/dL Hct 38.4 L (39.0-53.0) % Coagulation 11/20/18 Range/Units 23:00 INR 1.0 (<1.2) Result Diagrams: 11/20/18 23:00 11/20/18 23:00 - Diagnostic results Hip x-ray: image reviewed (Severe left hip osteoarthrosis with flattening of the femoral head, no definite collapse) Assessment and Plan Assessment: 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 No acute surgical intervention is warranted at this point. He does have a follow-up visit with Dr. Reddy next 2 weeks. Time with Patient: Greater than 30
[2018-11-21 12:12] LABS: Glucose,Whole Blood 135 mg/dL (75-99)
[2018-11-21] MEDS ORDERED: TAMSULOSIN 0.4 MG CAP.ER.24H PO SCH (13:00)
--- NOTE | 2018-11-21 13:43 | ECHOF ---
Referral Reason:elevated trop, hypotension MEASUREMENTS -------- HEIGHT: 170.2 cm WEIGHT: 88.9 kg BP: IVSd: 1.4 cm (0.6 - 1.1) LVIDd: 4.1 cm (3.9 - 5.3) LVPWd: 1.4 cm (0.6 - 1.1) EDV(Teich): 72 ml IVSs: 1.7 cm LVIDs: 3.2 cm LVPWs: 0.9 cm %IVS Thck: 20 % ESV(Teich): 42 ml EF(Teich): 42 % %FS: 20 % SV(Teich): 31 ml LA Diam: 4.5 cm (2.7 - 3.8) RVIDd: 3.4 cm (< 3.3) LALs A4C: 4.5 cm LAAs A4C: 16.9 cm LAESV A-L A4C: 54 ml LAESV MOD A4C: 50 ml LALs A2C: 5.0 cm LAAs A2C: 19.0 cm LAESV A-L A2C: 61 ml LAESV MOD A2C: 57 ml LAESV(A-L): 60 ml LAESV Index (A-L): 30.06 ml/m Ao Diam: 3.6 cm (2.0 - 3.7) LA Diam: 4.1 cm (2.7 - 3.8) AV Cusp: 0.8 cm (1.5 - 2.6) EPSS: 0.5 cm MV E Wili: 0.80 m/s MV DecT: 249 ms MV Dec [place]: 3.2 m/s MV A Wili: 0.99 m/s MV E/A Ratio: 0.81 MV PHT: 72 ms LVOT Vmax: 1.03 m/s LVOT maxP.24 mmHg LVOT Vmax: 1.09 m/s LVOT Vmean: 0.73 m/s LVOT maxP.73 mmHg LVOT meanP.47 mmHg LVOT Env.Ti: 341 ms LVOT VTI: 24.8 cm AV Vmax: 3.47 m/s AV maxP.12 mmHg AV Vmax: 3.54 m/s AV Vmean: 2.40 m/s AV maxP.29 mmHg AV meanP.49 mmHg AV Env.Ti: 304 ms AV VTI: 73.1 cm AR Vmax: 3.84 m/s AR maxP.09 mmHg AR PHT: 518 ms AR Dec Time: 1787 ms AR Dec [place]: 2.2 m/s TR Vmax: 2.59 m/s TR maxP.74 mmHg RAP: 5.00 mmHg RVSP: 31.74 mmHg MV EF SLOPE: 51.96 mm/s (70 - 150) MV EXCURSION: 19.44 mm (> 18.000) FINDINGS -------- Undetermined rhythm. This was a technically adequate study. The left ventricular size is normal. There is moderate concentric left ventricular hypertrophy. O verall left ventricular systolic function is normal with, an EF between 55 - 60 %. The right ventricle is normal in size. The left atrium is moderately dilated. LA is moderately dilated 34-39 ml/m2 The right atrial size is normal. There is [id number] aortic stenosis present. Peak/mean gradient across the Aortic Valve is 50.29mmHg / 25.49mmHg. Mild mitral annular calcification present. Mild mitral regurgitation is present. Mild tricuspid regurgitation present. There is no evidence of pulmonary hypertension. The right v entricular systolic pressure, as measured by Doppler, is 31.74mmHg. There is no pulmonic regurgitation present. The aortic root size is normal. There is no pericardial effusion. CONCLUSIONS -------- 1. Undetermined rhythm. 2. This was a technically adequate study. 3. The left ventricular size is normal. 4. There is moderate concentric left ventricular hypertrophy. 5. Overall left ventricular systolic function is normal with, an EF between 55 - 60 %. 6. The right ventricle is normal in size. 7. The left atrium is moderately dilated. 8. LA is moderately dilated 34-39 ml/m2 9. The right atrial size is normal. 10. There is [id number] aortic stenosis present. 11. Peak/mean gradient across the Aortic Valve is 50.29mmHg / 25.49mmHg. 12. Mild mitral annular calcification present. 13. Mild mitral regurgitation is present. 14. Mild tricuspid regurgitation present. 15. There is no evidence of pulmonary hypertension. 16. The right ventricular systolic pressure, as measured by Doppler, is 31.74mmHg. 17. There is no pulmonic regurgitation present. 18. The aortic root size is normal. 19. There is no pericardial effusion. FORGE HELPER: Cecile Morales RDCS
--- NOTE | 2018-11-21 14:07 | CONS ---
CONSULTATION This patient is seen in consultation because of the abnormal troponin. Patient's medical records were reviewed. This patient has significant problem with his joints and recently because of persistent pain, patient was started on morphine. The patient went to the bathroom and subsequently he felt weak and his legs gave way. He did not pass out. When the EMS arrived, patient's blood pressure was 60 and he was tachycardic. The patient does have a history of aortic aneurysm. In the emergency room, patient was evaluated. A CT scan of the chest and abdomen was negative. There was no evidence of any dissection. There was no evidence of any pericardial effusion. No definite fracture is noted. Patient did not complain of any chest pain. This patient has a history of diabetes. No history of hypertension and no prior history of myocardial infarction. PAST MEDICAL HISTORY: Includes multiple joint surgeries with a history of infections in the joint. The patient is a former smoker. This patient was hypotensive for at least a couple of hours in the emergency room. PHYSICAL EXAMINATION: At present, reveals 88-year-old gentleman. He is alert, awake, does not appear to be in any acute distress. Blood pressure now is 140/76 mmHg. HEENT examination is negative. Neck is supple. There is no increase in jugular venous pressure. Both the carotid pulses are felt. There is no bruit. Chest is symmetrical. Heart the PMI is not felt. First and second heart sounds are normal. There is a grade 2/6 ejection systolic murmur noted. Lungs are clinically clear to auscultation and percussion. ABDOMEN: Soft. Extremities: Peripheral pulses are 1+. Patient's EKG shows a normal sinus rhythm without any acute ischemic changes. Plasma lactic acid was 3.4. Initial troponin was 0.027, repeat troponin is 0.138. No significant wall motion abnormality is noted on the echocardiogram. FINAL IMPRESSION: 1. This patient is admitted with a fall. The patient had a significant hypotension as well as elevated lactic acid due to the hypoperfusion. The patient's mild rise in the troponin is probably secondary to most likely secondary to type 2 myocardial injury because of the hypotension and lactic acidosis. There are no EKG changes to suggest acute myocardial infarction. 2. Patient has evidence of moderate degree of aortic stenosis. 3. History of abdominal as well as thoracic aortic aneurysm. RECOMMENDATION: Continue the supportive treatment at present. Symptomatic treatment at present. The patient overall prognosis is guarded. Thank you for the consultation. MMODL / IJN: [id number] /
[2018-11-21] MEDS ORDERED: NAPROXEN 250 MG TAB PO PRN (15:58)
[2018-11-21 16:44] LABS: Glucose,Whole Blood 127 mg/dL (75-99)
[2018-11-21 20:46] LABS: Glucose,Whole Blood 183 mg/dL (75-99)
[2018-11-21] MEDS: TAMSULOSIN 0.4 MG CAP.ER.24H PO SCH (20:49)
--- NOTE | 2018-11-21 21:24 | P.HPIM ---
History of Present Illness H&P Date: 11/21/18 Chief Complaint: Falls History of presenting complaint: This is a pleasant 88-year-old patient of Dr. Chamberlain. Chronic stable medical conditions include asthma, diabetes, hypertension, prostate disorder, peripheral neuropathy. 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 Normally uses a walker to get about. Lives with his and son. Last night patient went to wash up and was heading towards bed. Suddenly felt very weak and dizzy and went down. Patient never passed out to no chest pain no palpitation. No headaches no change in vision. No change in speech. Brought into the ER. No fever no chills. No urinary symptoms no respiratory symptoms. Review of systems: GEN.: Tired EYES: None HEENT: Decreased hearing NECK: None RESPIRATORY: None CARDIOVASCULAR: None GASTROINTESTINAL: None GENITOURINARY: Decreased urine flow MUSCULOSKELETAL: Pain in the joints LYMPHATICS: None HEMATOLOGICAL: None PSYCHIATRY: None NEUROLOGICAL: None Social history: This with his and son. Does use a walker. No alcohol. Does smoke in the past. Family history: Breast cancer Physical examination: VITAL SIGNS: 98.4, 113, 18, 74 x 61, 94% room air GENERAL: BMI 30.7, laying in bed tired appearing. EYES: Pupils equal. Conjunctiva normal. HEENT: External appearance of nose and ears normal, oral cavity grossly normal. NECK: JVD not raised; masses not palpable. HEART: First and second heart sounds are normal; no edema. LUNGS: Respiratory rate normal; decreased breath sounds. ABDOMEN: Soft, nontender, liver spleen not palpable, no masses palpable. PSYCH: Alert and oriented x3; mood and affect normal. NEUROLOGICAL: Cranial nerves grossly intact; no facial asymmetry, power and sensation grossly intact. LYMPHATICS: No lymph nodes palpable in the axilla and neck INVESTIGATIONS, reviewed in the clinical context: White count 10.4 hemoglobin 12.8 platelets 307 potassium 4.9 BUN 35 creatinine 1.3 bicarb 17 lactic acid 3.4 Troponin I 0.0-7 EKG tracing personally reviewed by me shows sinus rhythm, right bundle branch block 2-D echo shows EF of 55-60% moderate to severe aortic stenosis On September 17 bun was 23 and creatinine was 1.06 Assessment: -Near-syncope due to hypotension, due to renal failure -Acute renal failure, with increased creatinine from 1.06-1.3 -Moderate to severe aortic stenosis, nontraumatic -Right bundle-branch block -Lactic acidosis type II, no evidence of infection -Chronic gait dysfunction uses a walker Plan: We'll hold of patient's DEDE inhibitor. Give IV fluids. Fall precautions. Care was discussed with the patient. Will be kept on telemetry. Questions were answered. Add oral bicarbonate. Repeat labs in the morning. 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 Source:: VRE-Right Knee; MRSA-Right Hip Past Surgical History: Joint Replacement, Orthopedic Surgery, Prostate Surgery Additional Past Surgical History / Comment(s): rt hip replacement with subsequent infection, rt femur replaced with titanium sonia Past Anesthesia/Blood Transfusion Reactions: No Reported Reaction Past Psychological History: No Psychological Hx Reported Smoking Status: Former smoker Past Alcohol Use History: Occasional Past Drug Use History: None Reported - Past Family History Mother Family Medical History: Cancer Additional Family Medical History / Comment(s): breast cancer Medications and Allergies Home Medications Medication Instructions Recorded Confirmed Type Lisinopril [Zestril] 2.5 mg PO DAILY 02/01/15 11/20/18 History Tamsulosin [Flomax] 0.4 mg PO BID@0100,1300 02/01/15 11/20/18 History metFORMIN HCL [Glucophage] 500 mg PO DAILY 02/01/15 11/20/18 History rOPINIRole HCL [Requip] 1 mg PO HS 02/01/15 11/20/18 History Allergies Allergy/AdvReac Type Severity Reaction Status Date / Time acetaminophen [From Vicodin] Allergy Intermediate Hallucinati Verified 11/20/18 22:53 ons hydrocodone bitartrate Allergy Intermediate Hallucinati Verified 11/20/18 22:53 [From Vicodin] ons tramadol HCl [From Ultram] Allergy Intermediate Confusion Verified 11/20/18 22:53 ibuprofen [From Motrin] Allergy Unknown Verified 11/20/18 22:53 Physical Exam Vitals: Vital Signs Temp Pulse Pulse Resp BP BP Pulse Ox 11/21/18 16:00 98.1 F 77 18 134/69 98 11/21/18 12:02 97.9 F 73 18 140/76 96 11/21/18 08:00 15 11/21/18 07:00 97.6 F 75 15 124/82 97 11/21/18 04:00 15 11/21/18 03:00 76 18 116/89 11/21/18 02:20 80 18 103/62 97 11/21/18 01:45 82 20 113/73 97 11/21/18 01:20 84 18 108/65 97 11/21/18 00:20 98 16 89/57 98 11/20/18 23:40 98 18 94/54 98 11/20/18 23:30 93 18 98/65 98 11/20/18 23:20 110 H 18 83/42 97 11/20/18 23:10 111 H 18 81/52 97 11/20/18 23:00 120 H 18 74/61 91 L 11/20/18 22:53 98.4 F 113 H 18 74/61 94 L Intake and Output 11/21/18 11/21/18 11/21/18 06:59 14:59 22:59 Intake Total 400 240 200 Output Total 300 300 Balance 400 -60 -100 Intake: Intake, IV Titration 400 Amount Sodium Chloride 0.9% 1, 400 000 ml @ 100 mls/hr IV . Q10H STA Rx#:[id number] Oral 240 200 Output: Urine 300 300 Other: Voiding Method Urinal Urinal # Voids 1 1 Results CBC & Chem 7: 11/20/18 23:00 11/20/18 23:00 Labs: Abnormal Lab Results - Last 24 Hours (Table) 11/20/18 11/20/18 11/20/18 Range/Units 23:00 23:00 23:00 RBC 4.25 L (4.30-5.90) m/uL Hgb 12.8 L (13.0-17.5) gm/dL Hct 38.4 L (39.0-53.0) % Carbon Dioxide 17 L (22-30) mmol/L BUN 35 H (9-20) mg/dL Creatinine 1.30 H (0.66-1.25) mg/dL Glucose 163 H (74-99) mg/dL POC Glucose (mg/dL) (75-99) mg/dL Plasma Lactic Acid Jb 3.4 H* (0.7-2.0) mmol/L Troponin I (0.000-0.034) ng/mL Ur Specific [place] (1.001-1.035) Urine Protein (Negative) 11/21/18 11/21/18 11/21/18 Range/Units 00:50 04:29 06:44 RBC (4.30-5.90) m/uL Hgb (13.0-17.5) gm/dL Hct (39.0-53.0) % Carbon Dioxide (22-30) mmol/L BUN (9-20) mg/dL Creatinine (0.66-1.25) mg/dL Glucose (74-99) mg/dL POC Glucose (mg/dL) 115 H (75-99) mg/dL Plasma Lactic Acid Jb (0.7-2.0) mmol/L Troponin I 0.138 H* (0.000-0.034) ng/mL Ur Specific [place] 1.045 H (1.001-1.035) Urine Protein Trace H (Negative) 11/21/18 11/21/18 11/21/18 Range/Units 08:35 12:09 16:42 RBC (4.30-5.90) m/uL Hgb (13.0-17.5) gm/dL Hct (39.0-53.0) % Carbon Dioxide (22-30) mmol/L BUN (9-20) mg/dL Creatinine (0.66-1.25) mg/dL Glucose (74-99) mg/dL POC Glucose (mg/dL) 112 H 135 H 127 H (75-99) mg/dL Plasma Lactic Acid Jb (0.7-2.0) mmol/L Troponin I (0.000-0.034) ng/mL Ur Specific [place] (1.001-1.035) Urine Protein (Negative) 11/21/18 11/21/18 Range/Units 17:35 20:45 RBC (4.30-5.90) m/uL Hgb (13.0-17.5) gm/dL Hct (39.0-53.0) % Carbon Dioxide (22-30) mmol/L BUN (9-20) mg/dL Creatinine (0.66-1.25) mg/dL Glucose (74-99) mg/dL POC Glucose (mg/dL) 183 H (75-99) mg/dL Plasma Lactic Acid Jb (0.7-2.0) mmol/L Troponin I 0.069 H* (0.000-0.034) ng/mL Ur Specific [place] (1.001-1.035) Urine Protein (Negative) Thrombosis Risk Factor Assmnt - Choose All That Apply Each Risk Factor Represents 3 Points: Age 75 years or older Thrombosis Risk Factor Assessment Total Risk Factor Score: 3 Thrombosis Risk Factor Assessment Level: Moderate Risk
[2018-11-21] MEDS: ACETAMINOPHEN TAB 500 MG TAB PO PRN (21:52)
[2018-11-21] MEDS: LACTATED RINGERS 1,000 ML IV SCH (21:53)
[2018-11-21] MEDS: SODIUM BICARBONATE TAB 650 MG TAB PO SCH (22:35)
[2018-11-22] MEDS: metFORMIN 500 MG TAB PO SCH (05:36)
[2018-11-22 06:05] LABS: Basophils % (A) 1 %; Eosinophils # (A) 0.5 k/uL (0-0.7); Eosinophils % (A) 9 %; HCT 35.8 % (39.0-53.0); HGB 11.7 gm/dL (13.0-17.5); Lymphocytes # (A) 1.3 k/uL (1.0-4.8); Lymphocytes % (A) 22 %; MCH 29.4 pg (25.0-35.0); MCHC 32.7 g/dL (31.0-37.0); MCV 89.9 fL (80.0-100.0); Mean Platelet Volume 6.1; Monocytes # (A) 0.5 k/uL (0-1.0); Monocytes % (A) 9 %; Neutrophils # (A) 3.4 k/uL (1.3-7.7); Neutrophils % (A) 58 %; Platelet Count 273 k/uL (150-450); RBC 3.98 m/uL (4.30-5.90); RDW 13.4 % (11.5-15.5); WBC 5.9 k/uL (3.8-10.6)
[2018-11-22 06:15] LABS: African American GFR (CKD) >90 (>60 ml/min/1.73 sqM); Anion Gap 5 mmol/L; Blood Urea Nitrogen 20 mg/dL (9-20); Calcium 8.5 mg/dL (8.4-10.2); Carbon Dioxide 24 mmol/L (22-30); Chloride 109 mmol/L (98-107); Glucose 104 mg/dL (74-99); Potassium 4.6 mmol/L (3.5-5.1); Sodium 138 mmol/L (137-145)
[2018-11-22 06:28] LABS: Glucose,Whole Blood 103 mg/dL (75-99)
[2018-11-22] MEDS: INSULIN ASPART (NovoLOG) 100 UNIT/ML VIAL SQ SCH ×4 (06:58→21:59)
[2018-11-22] MEDS: LACTATED RINGERS 1,000 ML IV SCH ×2 (08:53→19:40)
[2018-11-22] MEDS: ACETAMINOPHEN TAB 500 MG TAB PO PRN ×2 (08:54→16:06)
[2018-11-22] MEDS: TAMSULOSIN 0.4 MG CAP.ER.24H PO SCH ×2 (08:55→22:03)
[2018-11-22] MEDS: SODIUM BICARBONATE TAB 650 MG TAB PO SCH ×3 (08:55→22:04)
[2018-11-22 11:54] LABS: Glucose,Whole Blood 115 mg/dL (75-99)
--- NOTE | 2018-11-22 13:46 | P.PN ---
Subjective Progress Note Date: 11/22/18 This is an 88-year-old gentleman admitted to the hospital with a fall, he had significant hypotension as well as an elevated lactic acid due to hypoperfusion, patient also has a moderate degree of aortic stenosis and history of abdominal and thoracic aortic aneurysm. He was seen and examined today blood pressure 118/70 with a heart rate in the 70s, 99% on room air. White blood cell count 5.9, hemoglobin 11.7, platelet count 273, sodium 138, potassium 4.6, BUN 20 and creatinine 0.8. Echocardiogram with Doppler study was performed which revealed a normal left ventricular systolic function with moderate to severe aortic stenosis. Objective - Vital Signs Vital signs: Vital Signs Temp 97.8 F 11/22/18 12:00 Pulse 71 11/22/18 12:00 Resp 16 11/22/18 12:00 BP 118/75 11/22/18 12:00 Pulse Ox 99 11/22/18 12:00 Intake & Output 11/21/18 11/22/18 11/22/18 18:59 06:59 18:59 Intake Total 440 240 Output Total 600 100 350 Balance -160 -100 -110 Weight 89.5 kg Intake: Oral 440 240 Output: Urine 600 100 350 Other: Voiding Method Urinal Bedside Commode Urinal # Voids 1 1 # Bowel Movements 1 - Exam PHYSICAL EXAMINATION: GENERAL: 88-year-old gentleman in no acute distress at the time of my examination HEENT: Head is atraumatic, normocephalic. Pupils equal, round. Sclera anicteric. Conjunctiva are clear. Mucous membranes of the mouth are moist. Neck is supple. There is no elevated jugular venous pressure.] bruit is heard. HEART EXAMINATION: There is a grade 2/6 ejection systolic murmur CHEST EXAMINATION: Lungs are clear to auscultation and precussion. No chest wall tenderness is noted on palpation or with deep breathing. ABDOMEN: Soft, nontender. Bowel sounds are heard. No organomegaly noted. EXTREMITIES: 1+ peripheral pulses with no evidence of peripheral edema and no calf tenderness noted. NEUROLOGIC patient is awake, alert and oriented 3. . - Labs CBC & Chem 7: 11/22/18 05:41 11/22/18 05:41 Labs: Abnormal Lab Results - Last 24 Hours (Table) 11/21/18 11/21/1819 Range/Units 16:42 17:35 20:45 RBC (4.30-5.90) m/uL Hgb (13.0-17.5) gm/dL Hct (39.0-53.0) % Chloride (98-107) mmol/L Glucose (74-99) mg/dL POC Glucose (mg/dL) 127 H 183 H (75-99) mg/dL Troponin I 0.069 H* (0.000-0.034) ng/mL 11/22/18 11/22/18 11/22/18 Range/Units 05:41 05:41 06:26 RBC 3.98 L (4.30-5.90) m/uL Hgb 11.7 L (13.0-17.5) gm/dL Hct 35.8 L (39.0-53.0) % Chloride 109 H (98-107) mmol/L Glucose 104 H (74-99) mg/dL POC Glucose (mg/dL) 103 H (75-99) mg/dL Troponin I (0.000-0.034) ng/mL 11/22/18 Range/Units 11:51 RBC (4.30-5.90) m/uL Hgb (13.0-17.5) gm/dL Hct (39.0-53.0) % Chloride (98-107) mmol/L Glucose (74-99) mg/dL POC Glucose (mg/dL) 115 H (75-99) mg/dL Troponin I (0.000-0.034) ng/mL Assessment and Plan Plan: Assessment and plan #1 episode of fall with evidence of significant hypotension #2 abnormality in troponin most likely secondary to type II HI from hypotension and elevated lactic acid #3 moderate aortic stenosis #4 history of abdominal and thoracic aortic aneurysm Plan Echo revealed normal left ventricular systolic function with moderate to severe aortic stenosis. From cardiology's recommendation we will continue this patient on his current medications DNP note has been reviewed, I agree with a documented findings and plan of care. Patient was seen and examined.
[2018-11-22 16:49] LABS: Glucose,Whole Blood 122 mg/dL (75-99)
--- NOTE | 2018-11-22 20:25 | P.PN ---
Progress Note - Text Progress Note Date: 11/22/18 Chief Complaint: Falls History of presenting complaint: This is a pleasant 88-year-old patient of Dr. Chamberlain. Chronic stable medical conditions include asthma, diabetes, hypertension, prostate disorder, peripheral neuropathy. 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 Normally uses a walker to get about. Lives with his and son. Last night patient went to wash up and was heading towards bed. Suddenly felt very weak and dizzy and went down. Patient never passed out to no chest pain no palpitation. No headaches no change in vision. No change in speech. Brought into the ER. No fever no chills. No urinary symptoms no respiratory symptoms. Review of systems: GEN.: Tired EYES: None HEENT: Decreased hearing NECK: None RESPIRATORY: None CARDIOVASCULAR: None GASTROINTESTINAL: None GENITOURINARY: Decreased urine flow MUSCULOSKELETAL: Pain in the joints LYMPHATICS: None HEMATOLOGICAL: None PSYCHIATRY: None NEUROLOGICAL: None Social history: This with his and son. Does use a walker. No alcohol. Does smoke in the past. Family history: Breast cancer Physical examination: VITAL SIGNS: 98.4, 113, 18, 74 x 61, 94% room air GENERAL: BMI 30.7, laying in bed tired appearing. EYES: Pupils equal. Conjunctiva normal. HEENT: External appearance of nose and ears normal, oral cavity grossly normal. NECK: JVD not raised; masses not palpable. HEART: First and second heart sounds are normal; no edema. LUNGS: Respiratory rate normal; decreased breath sounds. ABDOMEN: Soft, nontender, liver spleen not palpable, no masses palpable. PSYCH: Alert and oriented x3; mood and affect normal. NEUROLOGICAL: Cranial nerves grossly intact; no facial asymmetry, power and sensation grossly intact. LYMPHATICS: No lymph nodes palpable in the axilla and neck INVESTIGATIONS, reviewed in the clinical context: White count 10.4 hemoglobin 12.8 platelets 307 potassium 4.9 BUN 35 creatinine 1.3 bicarb 17 lactic acid 3.4 Troponin I 0.0-7 EKG tracing personally reviewed by me shows sinus rhythm, right bundle branch block 2-D echo shows EF of 55-60% moderate to severe aortic stenosis On September 17 bun was 23 and creatinine was 1.06 Assessment: -Near-syncope due to hypotension, due to renal failure -Acute renal failure, with increased creatinine from 1.06-1.3 -Moderate to severe aortic stenosis, nontraumatic -Right bundle-branch block -Lactic acidosis type II, no evidence of infection -Chronic gait dysfunction uses a walker -Troponin leak from hemodynamic mismatch. No evidence of coronary artery syndrome Plan: We'll hold of patient's DEDE inhibitor. Give IV fluids. Fall precautions. Care was discussed with the patient. Will be kept on telemetry. Questions were answered. Add oral bicarbonate. Repeat labs in the morning.
[2018-11-22 21:32] LABS: Glucose,Whole Blood 161 mg/dL (75-99)
[2018-11-23 06:29] LABS: Glucose,Whole Blood 105 mg/dL (75-99)
[2018-11-23] MEDS: metFORMIN 500 MG TAB PO SCH (06:50)
[2018-11-23] MEDS: ACETAMINOPHEN TAB 500 MG TAB PO PRN ×2 (06:51→23:54)
[2018-11-23] MEDS: LACTATED RINGERS 1,000 ML IV SCH ×2 (06:54→12:20)
[2018-11-23] MEDS: INSULIN ASPART (NovoLOG) 100 UNIT/ML VIAL SQ SCH ×4 (06:55→21:38)
[2018-11-23 07:12] LABS: Calcium 8.7 mg/dL (8.4-10.2); Potassium 4.5 mmol/L (3.5-5.1)
[2018-11-23] MEDS: SODIUM BICARBONATE TAB 650 MG TAB PO SCH ×3 (08:59→21:37)
[2018-11-23] MEDS: TAMSULOSIN 0.4 MG CAP.ER.24H PO SCH ×2 (09:00→21:39)
[2018-11-23 11:43] LABS: Glucose,Whole Blood 159 mg/dL (75-99)
--- NOTE | 2018-11-23 11:53 | P.GSCN ---
History of Present Illness Consult date: 11/23/18 Reason for Consult: Urine retention History of present illness: The patient is an 88-year-old gentleman known to me for prostate cancer. He has had previous radiation therapy. He is in the hospital after sustaining a fall. He has known history of orthopedic problems. He is gone in urine retention. The nurses staff is been unable to catheterize patient. This cancer remains in remission. He has not had any real problems voiding prior to the hospitalization. He has had a bladder scan despite urinating of over thousand milliliters of urine residual. He does not feel full. There is been no incontinence or hematuria. He has not had a catheter in some time. 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 Source:: VRE-Right Knee; MRSA-Right Hip Past Surgical History: Joint Replacement, Orthopedic Surgery, Prostate Surgery Additional Past Surgical History / Comment(s): rt hip replacement with subsequent infection, rt femur replaced with titanium sonia Past Anesthesia/Blood Transfusion Reactions: No Reported Reaction Past Psychological History: No Psychological Hx Reported Smoking Status: Former smoker Past Alcohol Use History: Occasional Past Drug Use History: None Reported - Past Family History Mother Family Medical History: Cancer Additional Family Medical History / Comment(s): breast cancer Medications and Allergies Home Medications Medication Instructions Recorded Confirmed Type Lisinopril [Zestril] 2.5 mg PO DAILY 02/01/15 11/20/18 History Tamsulosin [Flomax] 0.4 mg PO BID@0100,1300 02/01/15 11/20/18 History metFORMIN HCL [Glucophage] 500 mg PO DAILY 02/01/15 11/20/18 History rOPINIRole HCL [Requip] 1 mg PO HS 02/01/15 11/20/18 History Allergies Allergy/AdvReac Type Severity Reaction Status Date / Time acetaminophen [From Vicodin] Allergy Intermediate Hallucinati Verified 11/20/18 22:53 ons hydrocodone bitartrate Allergy Intermediate Hallucinati Verified 11/20/18 22:53 [From Vicodin] ons tramadol HCl [From Ultram] Allergy Intermediate Confusion Verified 11/20/18 22:53 ibuprofen [From Motrin] Allergy Unknown Verified 11/20/18 22:53 Surgical - Exam Vital Signs Temp Pulse Resp BP Pulse Ox 98.4 F 113 H 18 74/61 94 L 11/20/18 22:53 11/20/18 22:53 11/20/18 22:53 11/20/18 22:53 11/20/18 22:53 - General well developed, well nourished, no distress - Eyes PERRL - ENT no hearing loss - Neck trachea midline - Respiratory normal expansion, normal respiratory effort - Cardiovascular Rhythm: regular - Abdomen Bladder appears full Abdomen: soft - Genitourinary Uncircumcised. Normal testes epididymis and scrotum - Neurologic normal coordination, normal sensation - Musculoskeletal normal posture - Psychiatric oriented to person, oriented to place, speech is normal, memory intact Results - Labs 11/22/18 05:41 11/23/18 06:12 Abnormal Lab Results - Last 24 Hours (Table) 11/22/18 11/22/18 11/22/18 Range/Units 11:51 16:47 21:30 Glucose (74-99) mg/dL POC Glucose (mg/dL) 115 H 122 H 161 H (75-99) mg/dL 11/23/18 11/23/18 11/23/18 Range/Units 06:12 06:26 11:33 Glucose 114 H (74-99) mg/dL POC Glucose (mg/dL) 105 H 159 H (75-99) mg/dL Diabetes panel 11/23/18 Range/Units 06:12 Sodium 137 (137-145) mmol/L Potassium 4.5 (3.5-5.1) mmol/L Chloride 105 (98-107) mmol/L Carbon Dioxide 23 (22-30) mmol/L BUN 16 (9-20) mg/dL Creatinine 0.87 (0.66-1.25) mg/dL Glucose 114 H (74-99) mg/dL Calcium 8.7 (8.4-10.2) mg/dL Calcium panel 11/23/18 Range/Units 06:12 Calcium 8.7 (8.4-10.2) mg/dL Pituitary panel 11/23/18 Range/Units 06:12 Sodium 137 (137-145) mmol/L Potassium 4.5 (3.5-5.1) mmol/L Chloride 105 (98-107) mmol/L Carbon Dioxide 23 (22-30) mmol/L BUN 16 (9-20) mg/dL Creatinine 0.87 (0.66-1.25) mg/dL Glucose 114 H (74-99) mg/dL Calcium 8.7 (8.4-10.2) mg/dL Adrenal panel 11/23/18 Range/Units 06:12 Sodium 137 (137-145) mmol/L Potassium 4.5 (3.5-5.1) mmol/L Chloride 105 (98-107) mmol/L Carbon Dioxide 23 (22-30) mmol/L BUN 16 (9-20) mg/dL Creatinine 0.87 (0.66-1.25) mg/dL Glucose 114 H (74-99) mg/dL Calcium 8.7 (8.4-10.2) mg/dL Assessment and Plan Assessment: Impression: Urine retention indeterminate cause. history of prostate cancer and radiation therapy. Plan: Oro catheter placement
--- NOTE | 2018-11-23 11:56 | P.PCN ---
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 Placement of 14-Citizen [place] coud-tip catheter. Anesthesia: none Surgeon: Pratik Duckworth Pathology: none sent Condition: stable Indications for Procedure: The patient is in urine retention. The nursing staff is unable to pass a catheter. Description of Procedure: Patient is prepped and draped sterilely. I attempt a 16-Citizen [place] O[place] catheter but meet resistance in the bulbar urethra. I then try a 14-[place] coud-tip catheter but similarly meet resistance in the bulbar urethra. I then pass a 3- Citizen [place] spiral filiform into the bladder. I dilate the urethra through the stricture in the bulbar urethra [id number] followers. I then removed the filiforms and followers and passed a 14-[place]izen [place] coud-tip catheter with approximately thousand cc of urine. The patient tolerated the procedure well. The catheter should remain in place at least 48-72 hours. If the patient goes home before then then I'll remove it in the office as an outpatient.
[2018-11-23 12:49] LABS: Hemoglobin A1C 6.1 % (4.0-6.0)
[2018-11-23 17:04] LABS: Glucose,Whole Blood 156 mg/dL (75-99)
--- NOTE | 2018-11-23 18:09 | P.PN ---
Progress Note - Text Progress Note Date: 11/23/18 Chief Complaint: Falls Interval history: This is a pleasant 88-year-old patient of Dr. Chamberlain. Chronic stable medical conditions include asthma, diabetes, hypertension, prostate disorder, peripheral neuropathy. 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 Normally uses a walker to get about. Lives with his and son. Last night patient went to wash up and was heading towards bed. Suddenly felt very weak and dizzy and went down. Patient never passed out to no chest pain no palpitation. No headaches no change in vision. No change in speech. Brought into the ER. No fever no chills. No urinary symptoms no respiratory symptoms. Patient was diagnosed with hypotension due to acute renal failure, causing him to fall. Today-feeling with better. Did get IV fluids. Did tolerate her diet. Seen by PTOT. Pending going to inpatient rehab Review of systems: Was done for constitutional, cardiovascular, GI, pulmonary. relevant finding as above Active Medications Acetaminophen (Tylenol Tab) 500 mg PO Q8HR PRN PRN Reason: Fever and/ or Pain Last Admin: 11/23/18 06:51 Dose: 500 mg Documented by: Lactated Ringer's (Lactated Ringers) 1,000 mls @ 100 mls/hr IV .Q10H [facility] Last Admin: 11/23/18 12:20 Dose: Not Given Documented by: Insulin Aspart (Novolog) 0 unit SQ [facility]; Protocol Last Admin: 11/23/18 17:24 Dose: 1 unit Documented by: Metformin HCl (Glucophage) 500 mg PO W/BRKFST [facility] Last Admin: 11/23/18 06:50 Dose: 500 mg Documented by: Naloxone HCl (Narcan) 0.2 mg IV Q2M PRN PRN Reason: Opioid Reversal Ropinirole HCl (Requip) 1 mg PO HS [facility] Last Admin: 11/22/18 21:58 Dose: 1 mg Documented by: Sodium Bicarbonate (Sodium Bicarbonate Tab) 325 mg PO TID [facility] Last Admin: 11/23/18 15:20 Dose: 325 mg Documented by: Tamsulosin HCl (Flomax) 0.4 mg PO BID [facility] Last Admin: 11/23/18 09:00 Dose: 0.4 mg Documented by: Physical examination: VITAL SIGNS: 98.2, 93, 16, 1 was 6/73, 98% room air GENERAL: Propped up in bed, a bit tired EYES: Pupils equal. Conjunctiva normal. HEENT: External appearance of nose and ears normal, oral cavity grossly normal. NECK: JVD not raised; masses not palpable. HEART: First and second heart sounds are normal; no edema. LUNGS: Respiratory rate normal; decreased breath sounds. ABDOMEN: Soft, nontender, liver spleen not palpable, no masses palpable. PSYCH: Alert and oriented x3; mood and affect normal. 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 No evidence of coronary artery s yndrome Plan: Patient is clinically looking better. Renal function is much improved. We'll decrease IV fluids. Spoke to social professionals. Looking at possible DC the ECF tomorrow.
[2018-11-23 21:13] LABS: Glucose,Whole Blood 162 mg/dL (75-99)
[2018-11-23 21:40] VITALS: RESP 18
[2018-11-24 05:49] VITALS: BP 128/74; PULSE 73; TEMP 98.1
[2018-11-24 07:24] LABS: Glucose,Whole Blood 103 mg/dL (75-99)
[2018-11-24] MEDS: INSULIN ASPART (NovoLOG) 100 UNIT/ML VIAL SQ SCH ×2 (07:36→12:26)
[2018-11-24] MEDS: metFORMIN 500 MG TAB PO SCH (07:42)
[2018-11-24] MEDS: SODIUM BICARBONATE TAB 650 MG TAB PO SCH (07:42)
[2018-11-24] MEDS: TAMSULOSIN 0.4 MG CAP.ER.24H PO SCH (07:42)
[2018-11-24] MEDS: ACETAMINOPHEN TAB 500 MG TAB PO PRN (07:47)
[2018-11-24 08:37] LABS: Calcium 8.6 mg/dL (8.4-10.2); Potassium 4.4 mmol/L (3.5-5.1)
--- NOTE | 2018-11-24 11:39 | P.DS ---
Providers Date of admission: 11/21/18 03:04 Expected date of discharge: 11/24/18 Attending physician: Ramez Brown Consults: 11/21/18 03:07 Consult Physician Urgent Consulting Provider: Justin Reddy Consult Reason/Comments: intractable left hip pain Do you want consulting provider notified?: Yes 11/21/18 08:24 Consult Physician Urgent Consulting Provider: Rohit Devi Consult Reason/Comments: elevated troponin Do you want consulting provider notified?: Yes 11/23/18 09:18 Consult Physician Urgent Consulting Provider: Pratik Duckworth Consult Reason/Comments: catheter placement for retension Do you want consulting provider notified?: Yes Primary care physician: [facility] Course: Hospital course: This is a pleasant 88-year-old patient of Dr. Chamberlain. Chronic stable medical conditions include asthma, diabetes, hypertension, prostate disorder, peripheral neuropathy. 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 Normally uses a walker to get about. Lives with his and son. Last night patient went to wash up and was heading towards bed. Suddenly felt very weak and dizzy and went down. Patient never passed out to no chest pain no palpitation. No headaches no change in vision. No change in speech. Brought into the ER. No fever no chills. No urinary symptoms no respiratory symptoms. Patient was diagnosed with hypotension due to acute renal failure, causing him to fall. Did better with IV fluids. Creatinine went from 1.3-0.9. Patient with into inpatient rehab. Tolerating a diet. Care was discussed with the patient. Discussed with psychiatric social worker supervisor Discussion and discharge planning more than 35 minutes Consultation: Dr. Chung from urology Physical examination: VITAL SIGNS: 98.1, 73, 18, 128/74, 97% room air GENERAL: Propped up in bed, a bit tired EYES: Pupils equal. Conjunctiva normal. HEENT: External appearance of nose and ears normal, oral cavity grossly normal. NECK: JVD not raised; masses not palpable. HEART: First and second heart sounds are normal; no edema. LUNGS: Respiratory rate normal; decreased breath sounds. ABDOMEN: Soft, nontender, liver spleen not palpable, no masses palpable. PSYCH: Alert and oriented x3; mood and affect normal. 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 No evidence of coronary artery syndrome -Bladder outflow obstruction, requiring Oro catheter, placed by urology Disposition: ECF/[facility] Patient Condition at Discharge: Stable Plan - Discharge Summary Discharge Rx Participant: No New Discharge Prescriptions: Continue rOPINIRole HCL [Requip] 1 mg PO HS metFORMIN HCL [Glucophage] 500 mg PO DAILY Tamsulosin [Flomax] 0.4 mg PO BID@0100,1300 Discontinued Lisinopril [Zestril] 2.5 mg PO DAILY Discharge Medication List Tamsulosin [Flomax] 0.4 mg PO BID@0100,1300 02/01/15 [History] metFORMIN HCL [Glucophage] 500 mg PO DAILY 02/01/15 [History] rOPINIRole HCL [Requip] 1 mg PO HS 02/01/15 [History] Follow up Appointment(s)/Referral(s): Power Chamberlain DO [Primary Care Provider] - 11/25/18 Pratik Duckworth MD [STAFF PHYSICIAN] - 3 Days (for removal of catheter placed inpatient.) Patient Instructions/Handouts: Syncope (DC), Hypotension (DC) Activity/Diet/Wound Care/Special Instructions: discharge with urinary catheter in place. 14 sammarinese urinary catheter placed by Dr. Duckworth 11/23/18 and is to be removed outpatient.
[2018-11-24 12:02] LABS: Glucose,Whole Blood 126 mg/dL (75-99)
--- NOTE | 2018-11-27 03:25 | CDI ---
Documentation Clarification Form Date: 11/27/18 From: Cristóbal Justin Phone: call [phone] Admit Date: 11/21/2018 3:04:00 AM Patient Name: Veronica Francis Visit Number: [id number] Discharge Date: 11/24/2018 2:44:00 PM ATTENTION: The Clinical Documentation Specialists (CDI) and [facility] Coding Staff appreciate your assistance in clarifying documentation. Please respond to the clarification below the line at the bottom and electronically sign. The CDI & [facility] Coding staff will review the response and follow-up if needed. Please note: Queries are made part of the Legal Health Record. If you have any questions, please contact the author of this message via ITS. Dr. Ramez Brown, The patient presented with hypotension related to DWAYNE. History/Risk Factors: Aortic aneurysm, pericardial effusion Clinical Indicators: Troponin elevation Lab findings: troponin 0.138 Other Clinical Indicators: EKG : EKG tracing personally reviewed by me shows sinus rhythm, right bundle branch block Treatment: conservative treatment. Consults: Yolanda Ibrahim. In 11/21 Consult note mentioned as mild troponin elevation secondary to type [address] Yolanda ibrahim and also documented in 11/22 progress note by Alla Aleman NP-Damaris. Later on documented in progress notes and DS notes as mild troponin elevation secondary to hemodynamic mismatch. In your professional opinion, can you please clarify Type 2 IN presence? YES NO Other, please specify Unable to determine Type 2 myocardial infarction secondary to hemodynamic mismatch, POA MTDD
== END 2018-11-24 14:44 | DRG 682 ==
LOC: EC 22:50 → 4SSUR 11-21 03:04 → 3SCARD 11-21 11:59 → 4MS4W 11-23 11:17
PROVIDERS: ADMIT Hospitalist; ATTEND Hospitalist
PROC: 0T9B70Z Drainage of Bladder with Drainage Device, Via Natural or Artificial Opening (ICD-10-PCS; principal; 2018-11-23)
PROC: 0T7D7ZZ Dilation of Urethra, Via Natural or Artificial Opening (ICD-10-PCS; principal; 2018-11-23)
DX: N17.9 Acute kidney failure, unspecified (principal); I21.A1 Myocardial infarction type 2; E87.2 Acidosis; E11.42 Type 2 diabetes mellitus with diabetic polyneuropathy; I71.9 Aortic aneurysm of unspecified site, without rupture; I10 Essential (primary) hypertension; C61 Malignant neoplasm of prostate; I35.0 Nonrheumatic aortic (valve) stenosis; R33.9 Retention of urine, unspecified; N35.912 Unspecified bulbous urethral stricture, male; R33.8 Other retention of urine; G89.29 Other chronic pain; I45.10 Unspecified right bundle-branch block; J45.909 Unspecified asthma, uncomplicated; M16.12 Unilateral primary osteoarthritis, left hip; N28.89 Other specified disorders of kidney and ureter; N32.0 Bladder-neck obstruction; N35.919 Unspecified urethral stricture, male, unspecified site; N42.9 Disorder of prostate, unspecified; W19.XXXA Unspecified fall, initial encounter; Z16.21 Resistance to vancomycin; Z96.641 Presence of right artificial hip joint; B95.2 Enterococcus as the cause of diseases classified elsewhere; B95.62 Methicillin resistant Staphylococcus aureus infection as the cause of diseases classified elsewhere; S51.011A Laceration without foreign body of right elbow, initial encounter; Y92.009 Unspecified place in unspecified non-institutional (private) residence as the place of occurrence of the external cause; Z79.84 Long term (current) use of oral hypoglycemic drugs; Z79.899 Other long term (current) drug therapy; Z80.3 Family history of malignant neoplasm of breast; Z85.46 Personal history of malignant neoplasm of prostate; Z86.14 Personal history of Methicillin resistant Staphylococcus aureus infection; Z86.79 Personal history of other diseases of the circulatory system; Z87.891 Personal history of nicotine dependence; Z92.3 Personal history of irradiation; Z88.6 Allergy status to analgesic agent; Z88.5 Allergy status to narcotic agent; Z98.890 Other specified postprocedural states
CPT/HCPCS: 36415; 71275; 72100; 73502; 74174; 80048; 80053; 81003; 83036; 83605; 83735; 83880; 84484; 85025; 85610; 85730; 86850; 86900; 86901; 93005; 93306; 96361; 96374; 99285

== ENCOUNTER 2019-02-07 04:56 | Emergency (ER) | payer MEDICARE ==
[2019-02-07 05:01] VITALS: RESP 18; TEMP 97.6
--- NOTE | 2019-02-07 05:10 | ED ---
Abdominal Pain HPI - General Chief Complaint: Abdominal Pain Stated Complaint: Male Time Seen by Provider: 02/07/19 05:02 Source: patient, EMS Mode of arrival: EMS - History of Present Illness Initial Comments: This patient is an 88-year-old man who presents to be evaluated for suprapubic abdominal pain and inability urinate. The patient states that over the past few weeks it is been increasingly difficult to urinate, he has seen his doctor who he states was checking him to see if he had a bladder infection. Over the course of last night and into this morning, patient states that he had not been able to pass urine and he feels intense urge to urinate. He also is having some cramping suprapubic pain. No fever or chills. MD Complaint: abdominal pain -: hour(s) Location: suprapubic Radiation: none Severity: moderate Quality: fullness Consistency: constant Improves With: nothing Worsens With: other (Palpation) - Related Data Home Medications Medication Instructions Recorded Confirmed Tamsulosin [Flomax] 0.4 mg PO BID@0100,1300 02/01/15 11/20/18 metFORMIN HCL [Glucophage] 500 mg PO DAILY 02/01/15 11/20/18 rOPINIRole HCL [Requip] 1 mg PO HS 02/01/15 11/20/18 Previous Rx's Medication Instructions Recorded Nitrofurantoin Monohyd/M-Cryst 100 mg PO Q12HR #28 cap 02/07/19 [Macrobid] Allergies Allergy/AdvReac Type Severity Reaction Status Date / Time acetaminophen [From Vicodin] Allergy Intermediate Hallucinati Verified 11/20/18 22:53 ons hydrocodone bitartrate Allergy Intermediate Hallucinati Verified 11/20/18 22:53 [From Vicodin] ons tramadol HCl [From Ultram] Allergy Intermediate Confusion Verified 11/20/18 22:53 ibuprofen [From Motrin] Allergy Unknown Verified 11/20/18 22:53 Review of Systems ROS Statement: Those systems with pertinent positive or pertinent negative responses have been documented in the HPI. ROS Other: All systems not noted in ROS Statement are negative. Constitutional: Denies: fever, chills Respiratory: Denies: cough, dyspnea Cardiovascular: Denies: chest pain, palpitations Gastrointestinal: Reports: as per HPI, abdominal pain. Denies: vomiting, diarrhea Genitourinary: Reports: as per HPI. 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 Source:: VRE-Right Knee; MRSA-Right Hip Past Surgical History: Joint Replacement, Orthopedic Surgery, Prostate Surgery Additional Past Surgical History / Comment(s): rt hip replacement, rt femur replaced with titanium sonia Past Anesthesia/Blood Transfusion Reactions: No Reported Reaction Past Psychological History: No Psychological Hx Reported Smoking Status: Former smoker Past Alcohol Use History: Occasional Past Drug Use History: None Reported - Past Family History Mother Family Medical History: Cancer Additional Family Medical History / Comment(s): breast cancer General Exam General appearance: alert, in no apparent distress Head exam: Present: atraumatic, normocephalic Respiratory exam: Present: normal lung sounds bilaterally. Absent: respiratory distress, wheezes, rales, rhonchi, stridor Cardiovascular Exam: Present: irregular rhythm, systolic murmur. Absent: diastolic murmur, rubs, gallop GI/Abdominal exam: Present: soft, other (Suprapubic fullness consistent with bladder). Absent: distended, tenderness, guarding, rebound, rigid, mass Extremities exam: Present: normal inspection, normal capillary refill. Absent: pedal edema, calf tenderness Back exam: Absent: CVA tenderness (R), CVA tenderness (L) Neurological exam: Present: alert Skin exam: Present: warm, dry, intact, normal color. Absent: rash Course Vital Signs 02/07/19 04:57 Temperature 97.6 F Pulse Rate 102 H Respiratory 18 Rate Blood Pressure 98/65 O2 Sat by Pulse 97 Oximetry Medical Decision Making - Lab Data Lab Results 02/07/19 Range/Units 05:19 Urine Color Yellow Urine Appearance Cloudy (Clear) Urine pH 5.5 (5.0-8.0) Ur Specific [place] 1.015 (1.001-1.035) Urine Protein 1+ H (Negative) Urine Glucose (UA) Negative (Negative) Urine Ketones Negative (Negative) Urine Blood Small H (Negative) Urine Nitrite Positive (Negative) Urine Bilirubin Negative (Negative) Urine Urobilinogen <2.0 (<2.0) mg/dL Ur Leukocyte Esterase Large H (Negative) Urine RBC 12 H (0-5) /hpf Urine WBC >182 H (0-5) /hpf Urine WBC Clumps Many H (None) /hpf Urine Bacteria Many H (None) /hpf Disposition Clinical Impression: Urinary tract infection, Urinary retention Disposition: HOME SELF-CARE Condition: Good Instructions (If sedation given, give patient instructions): Urinary Tract Infection in Men (ED), Oro Catheter Placement and Care (ED) Prescriptions: Nitrofurantoin Monohyd/M-Cryst [Macrobid] 100 mg PO Q12HR #28 cap Is patient prescribed a controlled substance at d/c from ED?: No Referrals: Chava García MD [Primary Care Provider] - 1-2 days Moe Ramos MD [STAFF PHYSICIAN] - 1-2 days
[2019-02-07 05:36] LABS: Appearance,Urine Cloudy (Clear); Bacteria,Urine Many /hpf; Bilirubin,Urine Negative (Negative); Blood,Urine Small (Negative); Color,Urine Yellow; Glucose,Urine (UA) Negative (Negative); Ketones,Urine Negative (Negative); Leukocyte Esterase,Urine Large (Negative); Nitrite,Urine Positive (Negative); PH, Urine 5.5 (5.0-8.0); Protein,Urine 1+ (Negative); RBC,Urine 12 /hpf (0-5); Specific Gravity,Urine 1.015 (1.001-1.035); Urobilinogen,Urine <2.0 mg/dL (<2.0); WBC,Urine >182 /hpf (0-5)
[2019-02-07] MEDS ORDERED: LEVOFLOXACIN 750 MG TAB PO STA (05:58)
[2019-02-07] MEDS ORDERED: NITROFURANTOIN MONOHYD/M-CRYST 100 MG CAP PO STA (06:06)
[2019-02-07] MEDS ORDERED: HYDROcodone/APAP 5-325MG 1 EACH TAB PO STA (06:16)
[2019-02-07 06:25] VITALS: BP 110/84; PULSE 105
== END 2019-02-07 07:08 | disposition home or self-care (01) ==
LOC: EC 04:56
DX: N39.0 Urinary tract infection, site not specified (principal); R33.9 Retention of urine, unspecified; E11.9 Type 2 diabetes mellitus without complications; I10 Essential (primary) hypertension; Z79.84 Long term (current) use of oral hypoglycemic drugs; Z79.899 Other long term (current) drug therapy; Z88.5 Allergy status to narcotic agent; Z88.6 Allergy status to analgesic agent; Z87.891 Personal history of nicotine dependence; Z96.641 Presence of right artificial hip joint
CPT/HCPCS: 51702; 51798; 81001; 87077; 87086; 87186; 99284

== ENCOUNTER 2020-06-16 14:56 | Inpatient (IN) | payer MEDICARE ==
[2020-06-16] MEDS ORDERED: IPRATROPIUM-ALBUTEROL 3 ML NEB INHALATION STA (15:21)
--- NOTE | 2020-06-16 15:29 | ED ---
SOB HPI - General Stated Complaint: GIOVANNI Time Seen by Provider: 06/16/20 15:00 Source: patient, RN notes reviewed, old records reviewed - History of Present Illness Initial Comments: This is an 81-year-old male with a history of COPD/asthma hypertension diabetes chronic indwelling Oro catheter who presents with complaints of shortness of breath. He states has been there for quite a while but Worse today. He is brought in by EMS he did get some relief of his updraft treatment. He denies any fevers chills nausea vomiting sweats or other symptoms. MD Complaint: shortness of breath - Related Data Home Medications Medication Instructions Recorded Confirmed Tamsulosin [Flomax] 0.4 mg PO DAILY 02/01/15 06/16/20 metFORMIN HCL [Glucophage] 500 mg PO DAILY PRN 02/01/15 06/16/20 Albuterol Inhaler [Ventolin Hfa 2 puff INHALATION RT-QID PRN 06/16/20 06/16/20 Inhaler] Albuterol Nebulized [Ventolin 2.5 mg INHALATION RT-QID PRN 06/16/20 06/16/20 Nebulized] Amoxicillin 250 mg PO DAILY 06/16/20 06/16/20 Apixaban [Eliquis] 2.5 mg PO BID 06/16/20 06/16/20 HYDROcodone/APAP 5-325MG [Benson 1 tab PO TID PRN 06/16/20 06/16/20 5-325] Ibuprofen [Advil] 200 mg PO Q8HR PRN 06/16/20 06/16/20 Allergies Allergy/AdvReac Type Severity Reaction Status Date / Time hydrocodone bitartrate AdvReac Intermediate Hallucinati Verified 06/16/20 16:33 [From Vicodin] ons tramadol HCl [From Ultram] AdvReac Intermediate Confusion Verified 06/16/20 16:33 Review of Systems ROS Statement: Those systems with pertinent positive or pertinent negative responses have been documented in the HPI. ROS Other: All systems not noted in ROS Statement are negative. Past Medical History Past Medical History: Asthma, Diabetes Mellitus, Hypertension, Prostate Disorder Additional Past Medical History / Comment(s): wound rt knee History of Any Multi-Drug Resistant Organisms: MRSA Date of last positivie culture/infection: 11/07/16 VRE; 6/29/20 MRSA MDRO Source:: VRE-Right Knee; MRSA-RIGHT KNEE Past Surgical History: Joint Replacement, Orthopedic Surgery, Prostate Surgery Additional Past Surgical History / Comment(s): rt hip replacement, rt femur replaced with titanium sonia Past Anesthesia/Blood Transfusion Reactions: No Reported Reaction Past Psychological History: No Psychological Hx Reported Past Alcohol Use History: Occasional Past Drug Use History: None Reported - Past Family History Mother Family Medical History: Cancer Additional Family Medical History / Comment(s): breast cancer General Exam - General Exam Comments Initial Comments: This is a well-developed well-nourished awake alert oriented 3 male Limitations: no limitations General appearance: alert, in no apparent distress Head exam: Present: atraumatic, normocephalic, normal inspection Eye exam: Present: normal appearance, PERRL, EOMI. Absent: scleral icterus, conjunctival injection, periorbital swelling ENT exam: Present: mucous membranes dry Neck exam: Present: normal inspection, full ROM, other. Absent: tenderness, meningismus, lymphadenopathy Respiratory exam: Present: wheezes, accessory muscle use, decreased breath sounds. Absent: respiratory distress, rales, rhonchi, stridor Cardiovascular Exam: Present: irregular rhythm (No stridor JVD or bruits), systolic murmur. Absent: diastolic murmur, rubs, gallop, clicks GI/Abdominal exam: Present: soft, normal bowel sounds. Absent: distended, tenderness, guarding, rebound, rigid Extremities exam: Present: full ROM, normal capillary refill, pedal edema. Absent: tenderness, joint swelling, calf tenderness Back exam: Present: normal inspection Neurological exam: Present: alert, oriented X3, CN II-XII intact Psychiatric exam: Present: normal affect, normal mood Skin exam: Present: warm, dry, intact, normal color. Absent: rash Course Vital Signs 06/16/20 06/16/20 06/16/20 15:00 16:35 16:41 Temperature 98.1 F Pulse Rate 81 125 H 123 H Respiratory 26 H Rate Blood Pressure 102/72 O2 Sat by Pulse 91 L Oximetry - Reevaluation(s) Reevaluation #1: 06/16/20 17:11 Patient reevaluation reveals he still short of breath and is breast also his wheezing had improved somewhat duration was initially 93. I did discuss the findings with him he will be admitted Medical Decision Making - Medical Decision Making Did discuss findings the patient as well as with Dr. Jackman troponin had not been received at that time nor the: Good. Patient be admitted for inpatient evaluation and treatment the lactic acid elevation is likely on the basis of dehydration at this time - Lab Data Result diagrams: 06/16/20 16:00 06/16/20 16:00 Lab Results 06/16/20 06/16/20 06/16/20 Range/Units 16:00 16:00 16:00 WBC 3.5 L (3.8-10.6) k/uL RBC 5.18 (4.30-5.90) m/uL Hgb 16.0 (13.0-17.5) gm/dL Hct 46.3 (39.0-53.0) % MCV 89.4 (80.0-100.0) fL MCH 30.9 (25.0-35.0) pg MCHC 34.6 (31.0-37.0) g/dL RDW 13.1 (11.5-15.5) % Plt Count 146 L (150-450) k/uL MPV 6.7 Neutrophils % 67 % Lymphocytes % 20 % Monocytes % 9 % Eosinophils % 1 % Basophils % 1 % Neutrophils # 2.3 (1.3-7.7) k/uL Lymphocytes # 0.7 L (1.0-4.8) k/uL Monocytes # 0.3 (0-1.0) k/uL Eosinophils # 0.0 (0-0.7) k/uL Basophils # 0.0 (0-0.2) k/uL PT 10.8 (9.0-12.0) sec INR 1.0 (<1.2) APTT 27.5 (22.0-30.0) sec Sodium 136 L (137-145) mmol/L Potassium 4.4 (3.5-5.1) mmol/L Chloride 100 (98-107) mmol/L Carbon Dioxide 26 (22-30) mmol/L Anion Gap 10 mmol/L BUN 19 (9-20) mg/dL Creatinine 1.05 (0.66-1.25) mg/dL Est GFR (CKD-EPI)AfAm 73 (>60 ml/min/1.73 sqM) Est GFR (CKD-EPI)NonAf 64 (>60 ml/min/1.73 sqM) Glucose 155 H (74-99) mg/dL Plasma Lactic Acid Jb (0.7-2.0) mmol/L Calcium 8.8 (8.4-10.2) mg/dL Magnesium 1.7 (1.6-2.3) mg/dL Total Bilirubin 0.8 (0.2-1.3) mg/dL AST 54 (17-59) U/L ALT 25 (4-49) U/L Alkaline Phosphatase 90 (38-126) U/L Creatine Kinase 277 H (55-170) U/L Troponin I (0.000-0.034) ng/mL NT-Pro-B Natriuret Pep pg/mL Total Protein 6.9 (6.3-8.2) g/dL Albumin 3.9 (3.5-5.0) g/dL Coronavirus (PCR) (Not Detectd) 06/16/20 06/16/20 06/16/20 Range/Units 16:00 16:00 16:00 WBC (3.8-10.6) k/uL RBC (4.30-5.90) m/uL Hgb (13.0-17.5) gm/dL Hct (39.0-53.0) % MCV (80.0-100.0) fL MCH (25.0-35.0) pg MCHC (31.0-37.0) g/dL RDW (11.5-15.5) % Plt Count (150-450) k/uL MPV Neutrophils % % Lymphocytes % % Monocytes % % Eosinophils % % Basophils % % Neutrophils # (1.3-7.7) k/uL Lymphocytes # (1.0-4.8) k/uL Monocytes # (0-1.0) k/uL Eosinophils # (0-0.7) k/uL Basophils # (0-0.2) k/uL PT (9.0-12.0) sec INR (<1.2) APTT (22.0-30.0) sec Sodium (137-145) mmol/L Potassium (3.5-5.1) mmol/L Chloride (98-107) mmol/L Carbon Dioxide (22-30) mmol/L Anion Gap mmol/L BUN (9-20) mg/dL Creatinine (0.66-1.25) mg/dL Est GFR (CKD-EPI)AfAm (>60 ml/min/1.73 sqM) Est GFR (CKD-EPI)NonAf (>60 ml/min/1.73 sqM) Glucose (74-99) mg/dL Plasma Lactic Acid Jb 2.9 H* (0.7-2.0) mmol/L Calcium (8.4-10.2) mg/dL Magnesium (1.6-2.3) mg/dL Total Bilirubin (0.2-1.3) mg/dL AST (17-59) U/L ALT (4-49) U/L Alkaline Phosphatase (38-126) U/L Creatine Kinase (55-170) U/L Troponin I 0.043 H* (0.000-0.034) ng/mL NT-Pro-B Natriuret Pep 1230 pg/mL Total Protein (6.3-8.2) g/dL Albumin (3.5-5.0) g/dL Coronavirus (PCR) (Not Detectd) 06/16/20 Range/Units 16:00 WBC (3.8-10.6) k/uL RBC (4.30-5.90) m/uL Hgb (13.0-17.5) gm/dL Hct (39.0-53.0) % MCV (80.0-100.0) fL MCH (25.0-35.0) pg MCHC (31.0-37.0) g/dL RDW (11.5-15.5) % Plt Count (150-450) k/uL MPV Neutrophils % % Lymphocytes % % Monocytes % % Eosinophils % % Basophils % % Neutrophils # (1.3-7.7) k/uL Lymphocytes # (1.0-4.8) k/uL Monocytes # (0-1.0) k/uL Eosinophils # (0-0.7) k/uL Basophils # (0-0.2) k/uL PT (9.0-12.0) sec INR (<1.2) APTT (22.0-30.0) sec Sodium (137-145) mmol/L Potassium (3.5-5.1) mmol/L Chloride (98-107) mmol/L Carbon Dioxide (22-30) mmol/L Anion Gap mmol/L BUN (9-20) mg/dL Creatinine (0.66-1.25) mg/dL Est GFR (CKD-EPI)AfAm (>60 ml/min/1.73 sqM) Est GFR (CKD-EPI)NonAf (>60 ml/min/1.73 sqM) Glucose (74-99) mg/dL Plasma Lactic Acid Jb (0.7-2.0) mmol/L Calcium (8.4-10.2) mg/dL Magnesium (1.6-2.3) mg/dL Total Bilirubin (0.2-1.3) mg/dL AST (17-59) U/L ALT (4-49) U/L Alkaline Phosphatase (38-126) U/L Creatine Kinase (55-170) U/L Troponin I (0.000-0.034) ng/mL NT-Pro-B Natriuret Pep pg/mL Total Protein (6.3-8.2) g/dL Albumin (3.5-5.0) g/dL Coronavirus (PCR) Detected A (Not Detectd) - EKG Data -: EKG Interpreted by Me EKG Comments: Tachycardia 124 PACs noted. Interval 180 QRS duration 132 QT since QTC 326/468 left exodeviation> block evidence of old inferior changes - Radiology Data Radiology results: report reviewed (Imaging shows evidence of a posterior infiltrate), image reviewed Critical Care Time Critical Care Time: Yes Total Critical Care Time: 32 Critical Care Time: Critical care time including initial presentation with history physical labs x- rays multiple reevaluation the patient discussion with the patient and the findings discussion with the admitting physician admission orders and documentation of the above this also included reviewing old charting was available Disposition Clinical Impression: Acute exacerbation of chronic obstructive pulmonary disease, Acute respiratory distress syndrome in adult, COVID-19, Viral pneumonia, Elevated troponin, Dehydration Disposition: ADMITTED IP TO THIS HOSP Condition: Fair Referrals: Power Chamberlain DO [Primary Care Provider] - 1-2 days
[2020-06-16 16:21] LABS: Basophils % (A) 1 %; Eosinophils % (A) 1 %; HCT 46.3 % (39.0-53.0); Lymphocytes # (A) 0.7 k/uL (1.0-4.8); Lymphocytes % (A) 20 %; MCH 30.9 pg (25.0-35.0); MCHC 34.6 g/dL (31.0-37.0); MCV 89.4 fL (80.0-100.0); Mean Platelet Volume 6.7; Monocytes # (A) 0.3 k/uL (0-1.0); Monocytes % (A) 9 %; Neutrophils # (A) 2.3 k/uL (1.3-7.7); Neutrophils % (A) 67 %; Platelet Count 146 k/uL (150-450); RBC 5.18 m/uL (4.30-5.90); RDW 13.1 % (11.5-15.5); WBC 3.5 k/uL (3.8-10.6)
[2020-06-16 16:30] LABS: Albumin 3.9 g/dL (3.5-5.0); Calcium 8.8 mg/dL (8.4-10.2); Magnesium 1.7 mg/dL (1.6-2.3); Potassium 4.4 mmol/L (3.5-5.1); Total Bilirubin 0.8 mg/dL (0.2-1.3); Total Protein 6.9 g/dL (6.3-8.2)
[2020-06-16 16:35] LABS: Partial Thromboplastin Time 27.5 sec (22.0-30.0); Prothrombin Time 10.8 sec (9.0-12.0)
--- NOTE | 2020-06-16 16:35 | XR ---
EXAMINATION TYPE: XR chest 2V DATE OF EXAM: 06/16/2020 COMPARISON: CT 09/07/2018 HISTORY: 89 year-old male shortness of breath, difficulty breathing TECHNIQUE: AP and lateral views FINDINGS: Heart upper limits of normal in size. Ectasia/tortuosity of the thoracic aorta. There is patchy opaci ty at the posterior mid lung on the lateral view. No pleural effusion. IMPRESSION: Borderline heart size. There is some patchy opacity posterior midlung on the lateral view that could represent atelectasis or developing infiltrate. Clinically correlate.
[2020-06-16] MEDS ORDERED: SODIUM CHLORIDE 0.9% 1,000 ML IV STA (17:10)
[2020-06-16] MEDS ORDERED: methylPREDNISolone SOD SUCCI 125 MG/2 ML VIAL IV STA (17:18)
[2020-06-16] MEDS ORDERED: metFORMIN 500 MG TAB PO PRN (17:20)
[2020-06-16] MEDS ORDERED: HYDROcodone/APAP 5-325MG 1 EACH TAB PO PRN (17:20)
[2020-06-16] MEDS ORDERED: IBUPROFEN 200 MG TAB PO PRN (17:20)
[2020-06-16] MEDS ORDERED: ALBUTEROL HFA INHALER INHALATION PRN (17:20)
[2020-06-16] MEDS ORDERED: dexAMETHasone 2 MG TAB PO STA (17:21)
[2020-06-16] MEDS: SODIUM CHLORIDE 0.9% 1,000 ML IV SCH (19:26)
[2020-06-16] MEDS: AZITHROMYCIN 500 MG in SODIUM CHLORIDE 0.9% 250 ML IVPB SCH (20:42)
[2020-06-16] MEDS: ALPRAZolam 0.25 MG TAB PO PRN (20:42)
[2020-06-16] MEDS: APIXABAN 2.5 MG TABLET PO SCH (20:42)
--- NOTE | 2020-06-16 20:52 | HP ---
HISTORY AND PHYSICAL CHIEF COMPLAINT: Shortness of breath. HISTORY OF PRESENT ILLNESS: This 89-year-old gentleman with a past medical history of asthma, diabetes mellitus, hypertension, history of prostate disorder, history of MRSA, being followed by Dr. Chamberlain in the outpatient setting, was noted to have shortness of breath for the last several days. The patient had indwelling Oro catheter. The patient was brought in by the EMS and the patient was not feeling better even after the treatment. The patient was found to have COPD, acute exacerbation. COVID-19 was found to be positive as well. The chest x-ray done on the admission, which is reviewed personally by me, showed possible right lower lobe infiltrate. Patient was admitted for evaluation. There is no history of any fever, rigor or chills. No history of headache, loss of consciousness, seizures. PAST MEDICAL HISTORY: History of asthma, diabetes mellitus, hypertension, history of prostate disorder, history of MRSA. HOME MEDICATIONS: Metformin, Flomax, Advil, Topmost, Eliquis, amoxicillin, Ventolin. Doses are reviewed. ALLERGIES: VICODIN, ULTRAM. FAMILY HISTORY: History of breast cancer in the family. SOCIAL HISTORY: Previous history of smoking. Occasional alcohol intake. REVIEW OF SYSTEMS: ENT: Diminished hearing. Diminished vision. CARDIOVASCULAR SYSTEM: As mentioned earlier. RESPIRATORY SYSTEM: As mentioned earlier. GI: No nausea, vomiting. : No dysuria or retention. NERVOUS SYSTEM: No numbness, weakness. ALLERGY/IMMUNOLOGY: No asthma, hayfever. MUSCULOSKELETAL: As mentioned earlier. HEMATOLOGY/ONCOLOGY: No history of anemia. ENDOCRINE: No history of diabetes, hypothyroidism. CONSTITUTIONAL: As mentioned earlier. DERMATOLOGY: Negative. RHEUMATOLOGY: Negative. PSYCHIATRY: As mentioned earlier. PHYSICAL EXAMINATION: Patient alert and oriented x3. Pulse is 125, blood pressure 102/72, respiration 26, temperature 98.0, pulse ox 91% on 2 L. HEENT: Conjunctivae normal. Oral mucosa moist. NECK: No jugular venous distention. No carotid bruit. No lymph node enlargement. CARDIOVASCULAR SYSTEM: S1, S2 muffled. RESPIRATORY SYSTEM: Breath sounds diminished at the bases. Scattered rhonchi and crackles. ABDOMEN: Soft, non-tender. LEGS: No edema. No swelling. NERVOUS SYSTEM: No focal deficit. SKIN: No ulcer, rash, bleeding. JOINTS: No active deforming arthropathy. LABS: EKG showed sinus tachycardia with right bundle branch block, possibly atrial fibrillation. Other labs are WBC 3.2, hemoglobin 16, platelets 146. Sodium is 136. D- dimer is 1.81. Lactic acid 2.9. Troponin 0.043. ASSESSMENT: 1. Chronic obstructive pulmonary disease, acute exacerbation, with possible acute right lower lobe pneumonia, possibly community-acquired. 2. Possible acute COVID-19 infection with interstitial viral pneumonia with acute hypoxic respiratory failure. 3. Possible sepsis with elevated lactic acid. 4. Troponin 0.043, indeterminate. 5. Elevated creatine kinase. 6. Hyponatremia. 7. Leukopenia. 8. Thrombocytopenia, possibly secondary to viral infection. 9. History of asthma. 10.Diabetes mellitus, type 2. 11.Hypertension. 12.History of prostate disorder. 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 14.History of degenerative joint disease. 15.History of nicotine dependence remotely. 16.Obesity with body mass index of 31.3. RECOMMENDATIONS AND DISCUSSION: In this 89-year-old gentleman who presented with multiple complex remote medical issues, we will monitor the patient closely, continue the current medications, continue with symptomatic treatment. I recommend bronchodilators. I would also recommend Rocephin and Zithromax for empiric treatment for pneumonia. I would also recommend infectious disease and pulmonary consultations for consideration of remdesivir. Other than that, steroids. Prognosis guarded. Resume the home medications. Prognosis guarded because of multiple complex medical issues. Further recommendations to follow. A copy of this dictation is being forwarded to Dr. Chamberlain, who is the primary physician. JIM / JOSEN: [id number] / PATRICIA
[2020-06-16 23:21] LABS: Glucose,Whole Blood 192 mg/dL (75-99)
[2020-06-17] MEDS: ALBUTEROL HFA INHALER INHALATION SCH ×5 (00:23→20:55)
[2020-06-17 03:42] LABS: Appearance,Urine Clear (Clear); Bacteria,Urine Rare /hpf; Bilirubin,Urine Negative (Negative); Blood,Urine Moderate (Negative); Color,Urine Light Yellow; Glucose,Urine (UA) Negative (Negative); Ketones,Urine Negative (Negative); Leukocyte Esterase,Urine Small (Negative); Nitrite,Urine Negative (Negative); Protein,Urine Trace (Negative); RBC,Urine 6 /hpf (0-5); Specific Gravity,Urine 1.007 (1.001-1.035); Urobilinogen,Urine <2.0 mg/dL (<2.0); WBC,Urine 3 /hpf (0-5)
[2020-06-17] MEDS: SODIUM CHLORIDE 0.9% 1,000 ML IV SCH (04:32)
[2020-06-17] MEDS: ASCORBIC ACID 500 MG TAB PO SCH (08:21)
[2020-06-17] MEDS: CHOLECALCIFEROL 25 MCG (1000 IU) TABLET PO SCH (08:21)
[2020-06-17] MEDS: TAMSULOSIN 0.4 MG CAP.ER.24H PO SCH (08:21)
[2020-06-17] MEDS: ZINC SULFATE 220 MG CAP PO SCH (08:21)
[2020-06-17] MEDS: dexAMETHasone 2 MG TAB PO SCH (08:21)
[2020-06-17] MEDS: PANTOPRAZOLE 40 MG TABLET PO SCH (08:21)
[2020-06-17] MEDS: AZITHROMYCIN 500 MG in SODIUM CHLORIDE 0.9% 250 ML IVPB SCH (08:22)
[2020-06-17 08:27] LABS: Glucose,Whole Blood 204 mg/dL (75-99)
[2020-06-17] MEDS ORDERED: AMOXICILLIN 250 MG CAP PO SCH (09:00)
[2020-06-17] MEDS: APIXABAN 2.5 MG TABLET PO SCH ×2 (09:49→20:49)
[2020-06-17 11:09] LABS: Basophils % (A) 0 %; Eosinophils % (A) 0 %; HCT 43.5 % (39.0-53.0); HGB 14.2 gm/dL (13.0-17.5); Lymphocytes # (A) 0.5 k/uL (1.0-4.8); Lymphocytes % (A) 33 %; MCH 29.5 pg (25.0-35.0); MCHC 32.5 g/dL (31.0-37.0); MCV 90.6 fL (80.0-100.0); Mean Platelet Volume 7.2; Monocytes # (A) 0.1 k/uL (0-1.0); Monocytes % (A) 6 %; Neutrophils # (A) 0.9 k/uL (1.3-7.7); Neutrophils % (A) 59 %; Platelet Count 142 k/uL (150-450); RBC 4.81 m/uL (4.30-5.90); RDW 13.6 % (11.5-15.5)
[2020-06-17 11:12] LABS: WBC 1.6 k/uL (3.8-10.6)
[2020-06-17 11:14] LABS: African American GFR (CKD) >90 (>60 ml/min/1.73 sqM); Anion Gap 9 mmol/L; Blood Urea Nitrogen 20 mg/dL (9-20); Carbon Dioxide 20 mmol/L (22-30); Chloride 108 mmol/L (98-107); Glucose 207 mg/dL (74-99); Non-African American GFR(CKD) 79 (>60 ml/min/1.73 sqM); Potassium 4.9 mmol/L (3.5-5.1); Sodium 137 mmol/L (137-145)
--- NOTE | 2020-06-17 11:38 | P.CRDCN ---
History of Present Illness Consult date: 06/17/20 Requesting physician: Karen Jackman Reason for Consult (text): elevated troponin Chief complaint: increased confusion, weakness, shortness of breath, cough History of present illness: This is an 89-year-old gentleman with a past medical history of asthma, hypertension, diabetes mellitus, MRSA and a wound on his knee and prostate cancer. Does not follow with a rn registry. Been having complaints of shortness of breath for the last several days. He was ultimately brought to the emergency department yesterday due to some confusion, weakness, worsening shortness of breath and a cough. He was found to be positive for cocaine 19. Chest x-ray on admission showed right lower lobe infiltrate. We were asked to the patient in consultation due to elevated troponin level. He does complain of some chest discomfort but only when coughing and bilateral. EKG showed sinus mechanism with right bundle branch block and frequent PACs. This morning patient is sinus bradycardia. He is overall feeling somewhat better. Continues to complain of a cough and shortness of breath. Mentation seems to be back to baseline. Continues to complain of weakness. Laboratory values showed a white blood cell count of 1600, BUN 20, creatinine 0.83, NT proBNP of 1230 and troponins of 0.043, 0.047 and 0.060. 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; MRSA-RIGHT KNEE Past Surgical History: Joint Replacement, Orthopedic Surgery, Prostate Surgery Additional Past Surgical History / Comment(s): rt hip replacement, rt femur replaced with titanium sonia Past Anesthesia/Blood Transfusion Reactions: No Reported Reaction Past Psychological History: No Psychological Hx Reported Smoking Status: Former smoker Past Alcohol Use History: Occasional Past Drug Use History: None Reported - Past Family History Mother Family Medical History: Cancer Additional Family Medical History / Comment(s): breast cancer Medications and Allergies Home Medications Medication Instructions Recorded Confirmed Type Tamsulosin [Flomax] 0.4 mg PO DAILY 02/01/15 06/16/20 History metFORMIN HCL [Glucophage] 500 mg PO DAILY PRN 02/01/15 06/16/20 History Albuterol Inhaler [Ventolin Hfa 2 puff INHALATION RT-QID PRN 06/16/20 06/16/20 History Inhaler] Albuterol Nebulized [Ventolin 2.5 mg INHALATION RT-QID PRN 06/16/20 06/16/20 History Nebulized] Amoxicillin 250 mg PO DAILY 06/16/20 06/16/20 History Apixaban [Eliquis] 2.5 mg PO BID 06/16/20 06/16/20 History HYDROcodone/APAP 5-325MG [[place] 1 tab PO TID PRN 06/16/20 06/16/20 History 5-325] Ibuprofen [Advil] 200 mg PO Q8HR PRN 06/16/20 06/16/20 History Allergies Allergy/AdvReac Type Severity Reaction Status Date / Time hydrocodone bitartrate AdvReac Intermediate Hallucinati Verified 06/16/20 16:33 [From Vicodin] ons tramadol HCl [From Ultram] AdvReac Intermediate Confusion Verified 06/16/20 16:33 Physical Exam Vitals: Vital Signs Temp Pulse Pulse Resp BP BP Pulse Ox 06/17/20 10:01 97.5 F L 06/17/20 08:05 59 L 16 123/65 99 06/17/20 07:50 97 06/17/20 04:30 73 17 135/75 99 06/17/20 01:00 97.7 F 68 16 113/74 98 06/17/20 00:05 67 15 106/67 99 06/16/20 19:15 102.0 F H 99 24 121/68 97 06/16/20 17:00 111 H 22 122/53 98 06/16/20 16:41 123 H 06/16/20 16:35 125 H 06/16/20 15:00 98.1 F 81 26 H 102/72 91 L Intake and Output 06/16/20 06/17/20 06/17/20 22:59 06:59 14:59 Intake Total 250 Output Total 450 Balance -200 Intake: Intake, IV Titration 250 Amount Sodium Chloride 0.9% 1, 250 000 ml @ 50 mls/hr IV . Q20H [facility] Rx#:[id number] Output: Urine 450 Uretheral (Oro) 450 Other: Voiding Method Indwelling Catheter Indwelling Catheter Weight 90.718 kg 90.718 kg This is a 89-year-old gentleman in no apparent distress at the time of my examination. VITAL SIGNS: Blood pressure 123/65, heart rate 59, respirations 20, temp 97.5 with a T-max of 102F at 7 PM last night. Patient is 99 % on 3 L via nasal cannula. Physical examination was deferred secondary to COVID-19 Results 06/17/20 10:15 06/17/20 10:15 Cardiac Enzymes 06/16/20 06/16/20 06/16/20 Range/Units 16:00 16:00 17:50 AST 54 (17-59) U/L Troponin I 0.043 H* 0.047 H* (0.000-0.034) ng/mL 06/16/20 Range/Units 20:15 AST (17-59) U/L Troponin I 0.060 H* (0.000-0.034) ng/mL Coagulation 06/16/20 Range/Units 16:00 PT 10.8 (9.0-12.0) sec APTT 27.5 (22.0-30.0) sec CBC 06/16/20 06/17/20 Range/Units 16:00 10:15 WBC 3.5 L 1.6 L (3.8-10.6) k/uL RBC 5.18 4.81 (4.30-5.90) m/uL Hgb 16.0 14.2 (13.0-17.5) gm/dL Hct 46.3 43.5 (39.0-53.0) % Plt Count 146 L 142 L (150-450) k/uL Comprehensive Metabolic Panel 06/16/20 06/17/20 Range/Units 16:00 10:15 Sodium 136 L 137 (137-145) mmol/L Potassium 4.4 4.9 (3.5-5.1) mmol/L Chloride 100 108 H (98-107) mmol/L Carbon Dioxide 26 20 L (22-30) mmol/L BUN 19 20 (9-20) mg/dL Creatinine 1.05 0.83 (0.66-1.25) mg/dL Glucose 155 H 207 H (74-99) mg/dL Calcium 8.8 8.0 L (8.4-10.2) mg/dL AST 54 (17-59) U/L ALT 25 (4-49) U/L Alkaline Phosphatase 90 (38-126) U/L Total Protein 6.9 (6.3-8.2) g/dL Albumin 3.9 (3.5-5.0) g/dL Current Medications Generic Name Dose Route Start Last Admin Trade Name Freq PRN Reason Stop Dose Admin Hydrocodone Bitart/Acetaminophen 1 each 06/16/20 17:20 Hydrocodone/Apap 5-325mg 1 Each Tab PO TID PRN Pain Albuterol Sulfate 2 puff 06/16/20 17:20 Albuterol Hfa Inhaler INHALATION RT-QID PRN Shortness Of Breath Albuterol Sulfate 2 puff 06/16/20 20:00 06/17/20 07:49 Albuterol Hfa Inhaler INHALATION 2 puff RT-QID MEENA Administration Alprazolam 0.25 mg 06/16/20 18:53 06/16/20 20:42 Alprazolam 0.25 Mg Tab PO 0.25 mg TID PRN Administration Anxiety Apixaban 2.5 mg 06/16/20 21:00 06/17/20 09:49 Apixaban 2.5 Mg Tablet PO 2.5 mg BID MEENA Administration Ascorbic Acid 1,000 mg 06/17/20 09:00 06/17/20 08:21 Ascorbic Acid 500 Mg Tab PO 1,000 mg DAILY MEENA Administration Cholecalciferol 125 mcg 06/17/20 09:00 06/17/20 08:21 Cholecalciferol 25 Mcg (1000 Iu) Tablet PO 125 mcg DAILY MEENA Administration Dexamethasone 6 mg 06/17/20 09:00 06/17/20 08:21 Dexamethasone 2 Mg Tab PO 6 mg Q24HR MEENA Administration Sodium Chloride 1,000 mls @ 50 mls/hr 06/16/20 17:30 06/17/20 04:32 Saline 0.9% IV 50 mls/hr .Q20H MEENA Administration Ceftriaxone Sodium 1 gm/ 50 mls @ 100 mls/hr 06/16/20 19:00 06/17/20 09:49 Sodium Chloride IVPB 100 mls/hr Q24HR MEENA Administration Azithromycin 500 mg/ Sodium 250 mls @ 250 mls/hr 06/16/20 19:00 06/17/20 08:22 Chloride IVPB 250 mls/hr DAILY MEENA Administration Ibuprofen 200 mg 06/16/20 17:20 06/16/20 20:42 Ibuprofen 200 Mg Tab PO 200 mg Q8HR PRN Administration Pain Metformin HCl 500 mg 06/16/20 17:20 06/17/20 09:49 Metformin 500 Mg Tab PO 500 mg DAILY PRN Administration Blood Sugar - High Pantoprazole Sodium 40 mg 06/17/20 07:30 06/17/20 08:21 Pantoprazole 40 Mg Tablet PO 40 mg [id number] MEENA Administration Tamsulosin HCl 0.4 mg 06/17/20 09:00 06/17/20 08:21 Tamsulosin 0.4 Mg Cap.Er.24h PO 0.4 mg DAILY MEENA Administration Zinc Sulfate 220 mg 06/17/20 09:00 06/17/20 08:21 Zinc Sulfate 220 Mg Cap PO 220 mg DAILY MEENA Administration Intake and Output 06/16/20 06/17/20 06/17/20 22:59 06:59 14:59 Intake Total 250 Output Total 450 Balance -200 Intake: Intake, IV Titration 250 Amount Sodium Chloride 0.9% 1, 250 000 ml @ 50 mls/hr IV . Q20H [facility] Rx#:[id number] Output: Urine 450 Uretheral (Oro) 450 Other: Voiding Method Indwelling Catheter Indwelling Catheter Weight 90.718 kg 90.718 kg Patient Weight 06/18/20 06:59 Weight 90.718 kg 06/17/20 10:15 06/17/20 10:15 Assessment and Plan Assessment: #1 COVID-19 with pneumonia #2 elevated troponins likely secondary to above #3 hypertension #4 diabetes mellitus Plan: From cardiology perspective will obtain a 2-D echo with Doppler to assess cardiac structure and function. Continue to follow the patient right further recommendations based on patient's symptoms and diagnostic findings. The above dictated assessment and findings were discussed with signing physician. The impression and plan of care have been directed as dictated. Joseline Jones, Nurse Practitioner, acting as scribe for signing physician.
[2020-06-17 11:53] LABS: Glucose,Whole Blood 204 mg/dL (75-99)
--- NOTE | 2020-06-17 12:35 | ECHOF ---
Referral Reason:elevated troponin MEASUREMENTS -------- HEIGHT: 170.2 cm WEIGHT: 90.7 kg BP: RVIDd: 3.6 cm (< 3.3) IVSd: 1.6 cm (0.6 - 1.1) LVIDd: 3.9 cm (3.9 - 5.3) LVPWd: 1.3 cm (0.6 - 1.1) IVSs: 2.5 cm LVIDs: 2.7 cm LVPWs: 1.3 cm Ao Diam: 3.2 cm (2.0 - 3.7) AV Cusp: 1.1 cm (1.5 - 2.6) LA Diam: 3.5 cm (2.7 - 3.8) MV EXCURSION: 16.312 mm (> 18.000) MV EF SLOPE: 18 mm/s (70 - 150) EPSS: 0.8 cm MV E Wili: 0.60 m/s MV DecT: 324 ms MV A Wili: 0.57 m/s MV E/A Ratio: 1.06 AV maxP.39 mmHg AV meanP.93 mmHg AR PHT: 1124 ms RAP: 5.00 mmHg RVSP: 16.89 mmHg FINDINGS -------- This was a technically difficult study with suboptimal views. This was a technically difficult study with suboptimal apical views. The left ventricular size is normal. There is moderate concentric left ventricular hypertrophy. O verall left ventricular systolic function is low-normal with, an EF between 50 - 55 %. The right ventricle is mild to moderately enlarged. The left atrial size is normal. The right atrial size is normal. 5.0mg of Lumason was utilized for enhancement of images Aortic valve is trileaflet and is mildly thickened. Trace amount of aortic regurgitation. There is mild aortic stenosis present. Peak/mean gradient across the Aortic Valve is 14.39mmHg / 9.93mmHg . The mitral valve is normal. Mild mitral regurgitation is present. The tricuspid valve appears structurally normal. Mild tricuspid regurgitation present. Right vent ricular systolic pressure is normal at < 35 mmHg. There is no pulmonic regurgitation present. The aortic root size is normal. IVC Not well visulized. There is no pericardial effusion. CONCLUSIONS -------- 1. The left ventricular size is normal. 2. There is moderate concentric left ventricular hypertrophy. 3. Overall left ventricular systolic function is low-normal with, an EF between 50 - 55 %. 4. The right ventricle is mild to moderately enlarged. 5. Aortic valve is trileaflet and is mildly thickened. 6. Trace amount of aortic regurgitation. 7. There is mild aortic stenosis present. 8. Peak/mean gradient across the Aortic Valve is 14.39mmHg / 9.93mmHg. 9. Mild mitral regurgitation is present. 10. Mild tricuspid regurgitation present. 11. There is no pericardial effusion. ARTIFICIAL PEARL MAKER: Kasia Jones RDCS
--- NOTE | 2020-06-17 14:01 | PN ---
PROGRESS NOTE DATE OF SERVICE: 06/17/2020 INTERVAL HISTORY: This is an 89-year-old gentleman who was admitted with shortness of breath with COPD exacerbation also possible COVID 19 pneumonia. The patient also had elevated troponins also. EKG showed right bundle branch block with some left axis deviation. The patient is being closely monitored. Multiple consultants are following the patient closely. The patient also had right-sided pneumonia. PAST MEDICAL HISTORY: Reviewed. REVIEW OF SYMPTOMS: CARDIOVASCULAR: No angina. RESPIRATORY: As mentioned earlier. GI: As mentioned earlier. : No dysuria. NERVOUS SYSTEM: No numbness or weakness. CURRENT MEDICATIONS: Reviewed include [place], Ventolin, Xanax, Eliquis, Zithromax, Rocephin. Doses reviewed. PHYSICAL EXAM: GENERAL: Patient is alert and oriented times two. VITAL SIGNS: Pulse 59, blood pressure 126/54, respirations 16, temperature 97.2, pulse ox 99% on 3 liters. HEENT: Conjunctivae normal. Oral mucosa moist. NECK: No jugular venous distention. No carotid bruits. No lymph node enlargement. RESPIRATORY: Breath sounds diminished at the bases. Bilateral scattered rhonchi and crackles. HEART: S1 and S2, muffled. ABDOMEN: Soft, no tenderness. NERVOUS: No focal deficits. LAB STUDIES: WBC 1.6 and platelets are 142. UA noted. Calcium is 8. Echo showed ejection fraction about 50-55%, mild aortic stenosis. IMPRESSION: 1. Chronic obstructive pulmonary disease acute exacerbation with possible acute right lower lobe pneumonia, possibly community-acquired. 2. Possible acute COVID-19 infection with interstitial pneumonia with acute hypoxic respiratory failure. 3. Possible sepsis with elevated lactic acid, present on admission. 4. Troponin 0.043 indeterminate. 5. Mild aortic stenosis. 6. Elevated serum procalcitonin. 7. Elevated creatine kinase. 8. Hyponatremia. 9. Leukopenia. 10.Thrombocytopenia, possibly secondary to viral infection and COVID-19. 11.History of asthma. 12.Diabetes mellitus type 2. 13.Hypertension. 14.History of prostate disorder. 15.History of Methicillin resistant Staphylococcus aureus, as well as Vancomycin- resistant enterococcus. 16.History of degenerative joint disease. 17.History of nicotine dependence. 18.Obesity with body mass index of 31.3. 19.Hypocalcemia. RECOMMENDATION AND DISCUSSION: This is an 89-year-old gentleman who presented with multiple complex medical issues, we will monitor the patient closely. Continue the current medications, continue bronchodilators, continue empiric antibiotics. The patient also had multiple lab abnormalities, possibly secondary to a combination of COVID-19, as well as bacterial pneumonia. We will continue to monitor. This serum procalcitonin is also elevated at 0.15. We will await the culture report because the patient had previous history of MRSA and VRE to fine-tune the antibiotic treatment. The patient also noted to have hypocalcemia. I will supplement some calcium as well. Vitamins are ordered. The patient is also on Eliquis and dexamethasone. Guarded prognosis. Further recommendations to follow. MMODL / IJN: [id number] /
--- NOTE | 2020-06-17 14:41 | P.CNPUL ---
History of Present Illness Consult date: 06/17/20 Requesting physician: Karen Jackman Chief complaint: Weakness, shortness of breath History of present illness: This is an 89-year-old gentleman who follows with Dr. Chamberlain as his primary care provider. 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 He had been having aggressive shortness of breath and weakness and his was unable to get him up out of a chair and EMS was called and he was brought into the emergency room yesterday. 6 revealed some patchy opacities in the mid lung suspected atelectasis/infiltrate. He also tested positive for the doe virus. White count 1.6. Hemoglobin 14.2. Platelet count 142. D-dimer 1.81. Sodium 137. Potassium 4.9. Creatinine 0.3. Troponins 0.043, 0.047, 0.060. ProBNP 12:30. Pro-calcitonin 0.15. Patient is seen today in consultation on the observation unit. He is quite a poor historian. Difficult to get much information from the patient. He is currently maintaining O2 saturations in the high 90s on 3 L/m per nasal cannula. He is currently afebrile. Hemodynamically stable. He's been initiated on bronchodilators, ceftriaxone and azithromycin, anticoagulated with Eliquis, dexamethasone and vitamin supplements. Review of Systems REVIEW OF SYSTEMS: CONSTITUTIONAL: Generalized weakness. Denies any recent significant weight loss or weight gain. EYES: Denies change in vision. EARS, NOSE, MOUTH, THROAT: Denies headaches, denies sore throat. CARDIOVASCULAR: Denies chest pain, palpitations or syncopal episodes. RESPIRATORY: Acid of 4 shortness of breath, cough, congestion no hemoptysis. GASTROINTESTINAL: Denies change in appetite, denies abdominal pain GENITOURINARY: Denies hematuria, denies infections. MUSKULOSKELETAL: Denies pain, denies swelling. INTEGUMENTARY: Denies rash, denies eczema. NEUROLOGICAL: Denies recent memory loss, no recent seizure activity. PSYCHIATRIC: Denies anxiety, denies depression. HEMATOLOGIC/LYMPHATIC: Denies anemia, denies enlarged lymph nodes. 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; MRSA-RIGHT KNEE Past Surgical History: Joint Replacement, Orthopedic Surgery, Prostate Surgery Additional Past Surgical History / Comment(s): rt hip replacement, rt femur replaced with titanium sonia Past Anesthesia/Blood Transfusion Reactions: No Reported Reaction Past Psychological History: No Psychological Hx Reported Smoking Status: Former smoker Past Alcohol Use History: Occasional Past Drug Use History: None Reported - Past Family History Mother Family Medical History: Cancer Additional Family Medical History / Comment(s): breast cancer Medications and Allergies Home Medications Medication Instructions Recorded Confirmed Type Tamsulosin [Flomax] 0.4 mg PO DAILY 02/01/15 06/16/20 History metFORMIN HCL [Glucophage] 500 mg PO DAILY PRN 02/01/15 06/16/20 History Albuterol Inhaler [Ventolin Hfa 2 puff INHALATION RT-QID PRN 06/16/20 06/16/20 History Inhaler] Albuterol Nebulized [Ventolin 2.5 mg INHALATION RT-QID PRN 06/16/20 06/16/20 History Nebulized] Amoxicillin 250 mg PO DAILY 06/16/20 06/16/20 History Apixaban [Eliquis] 2.5 mg PO BID 06/16/20 06/16/20 History HYDROcodone/APAP 5-325MG [[place] 1 tab PO TID PRN 06/16/20 06/16/20 History 5-325] Ibuprofen [Advil] 200 mg PO Q8HR PRN 06/16/20 06/16/20 History Allergies Allergy/AdvReac Type Severity Reaction Status Date / Time hydrocodone bitartrate AdvReac Intermediate Hallucinati Verified 06/16/20 16:33 [From Vicodin] ons tramadol HCl [From Ultram] AdvReac Intermediate Confusion Verified 06/16/20 16:33 Physical Exam Vitals: Vital Signs Temp Pulse Pulse Resp BP BP Pulse Ox 06/17/20 13:54 99 18 139/71 99 06/17/20 10:01 97.5 F L 06/17/20 08:05 59 L 16 123/65 99 06/17/20 07:50 97 06/17/20 04:30 73 17 135/75 99 06/17/20 01:00 97.7 F 68 16 113/74 98 06/17/20 00:05 67 15 106/67 99 06/16/20 19:15 102.0 F H 99 24 121/68 97 06/16/20 17:00 111 H 22 122/53 98 06/16/20 16:41 123 H 06/16/20 16:35 125 H 06/16/20 15:00 98.1 F 81 26 H 102/72 91 L Intake and Output 06/16/20 06/17/20 06/17/20 22:59 06:59 14:59 Intake Total 250 Output Total 450 Balance -200 Intake: Intake, IV Titration 250 Amount Sodium Chloride 0.9% 1, 250 000 ml @ 50 mls/hr IV . Q20H [facility] Rx#:[id number] Output: Urine 450 Uretheral (Oro) 450 Other: Voiding Method Indwelling Catheter Indwelling Catheter Weight 90.718 kg 90.718 kg GENERAL EXAM: Alert, frail, 89-year-old gentleman resting in bed, on 3 L nasal cannula, comfortable in no apparent distress. HEAD: Normocephalic. EYES: Normal reaction of pupils, equal size. NOSE: Clear with pink turbinates. THROAT: No erythema or exudates. NECK: No masses, no JVD. CHEST: No chest wall deformity. LUNGS: Equal air entry with bilateral scattered rhonchi CVS: S1 and S2 normal with no audible murmur, regular rhythm. ABDOMEN: No hepatosplenomegaly, normal bowel sounds, no guarding or rigidity. SPINE: No scoliosis or deformity SKIN: No rashes CENTRAL NERVOUS SYSTEM: No focal deficits, tone is normal in all 4 extremities. EXTREMITIES: Chronic wounds of the lower extremities. There is no peripheral edema. No clubbing, no cyanosis. Peripheral pulses are intact. Results - Laboratory Findings CBC and BMP: 06/17/20 10:15 06/17/20 10:15 PT/INR, D-dimer PT 10.8 sec (9.0-12.0) 06/16/20 16:00 INR 1.0 (<1.2) 06/16/20 16:00 D-Dimer 1.81 mg/L FEU (<0.60) H 06/16/20 16:00 Abnormal lab findings: Abnormal Labs 06/16/20 06/16/20 06/16/20 16:00 16:00 16:00 WBC 3.5 L Plt Count 146 L Neutrophils # Lymphocytes # 0.7 L D-Dimer Sodium 136 L Chloride Carbon Dioxide Glucose 155 H POC Glucose (mg/dL) Plasma Lactic Acid Jb 2.9 H* Calcium Creatine Kinase 277 H Troponin I Procalcitonin Urine Protein Urine Blood Ur Leukocyte Esterase Urine RBC Urine Bacteria Coronavirus (PCR) 06/16/20 06/16/20 06/16/20 16:00 16:00 16:00 WBC Plt Count Neutrophils # Lymphocytes # D-Dimer 1.81 H Sodium Chloride Carbon Dioxide Glucose POC Glucose (mg/dL) Plasma Lactic Acid Jb Calcium Creatine Kinase Troponin I 0.043 H* Procalcitonin Urine Protein Urine Blood Ur Leukocyte Esterase Urine RBC Urine Bacteria Coronavirus (PCR) Detected A 06/16/20 06/16/20 06/16/20 17:50 19:33 20:15 WBC Plt Count Neutrophils # Lymphocytes # D-Dimer Sodium Chloride Carbon Dioxide Glucose POC Glucose (mg/dL) Plasma Lactic Acid Jb Calcium Creatine Kinase Troponin I 0.047 H* 0.060 H* Procalcitonin 0.15 H Urine Protein Urine Blood Ur Leukocyte Esterase Urine RBC Urine Bacteria Coronavirus (PCR) 06/16/20 06/17/20 06/17/20 23:19 03:00 08:20 WBC Plt Count Neutrophils # Lymphocytes # D-Dimer Sodium Chloride Carbon Dioxide Glucose POC Glucose (mg/dL) 192 H 204 H Plasma Lactic Acid Jb Calcium Creatine Kinase Troponin I Procalcitonin Urine Protein Trace H Urine Blood Moderate H Ur Leukocyte Esterase Small H Urine RBC 6 H Urine Bacteria Rare H Coronavirus (PCR) 06/17/20 06/17/20 06/17/20 10:15 10:15 11:48 WBC 1.6 L Plt Count 142 L Neutrophils # 0.9 L Lymphocytes # 0.5 L D-Dimer Sodium Chloride 108 H Carbon Dioxide 20 L Glucose 207 H POC Glucose (mg/dL) 204 H Plasma Lactic Acid Jb Calcium 8.0 L Creatine Kinase Troponin I Procalcitonin Urine Protein Urine Blood Ur Leukocyte Esterase Urine RBC Urine Bacteria Coronavirus (PCR) - Diagnostic Findings Chest x-ray: image reviewed Assessment and Plan Assessment: 1 Acute hypoxic respiratory failure secondary to acute CoVID 19 pneumonitis as pneumonia more so on the right lower lobe. 2 Diabetes mellitus 3 hypertension 4 Chronic indwelling Oro catheter 5 History of MRSA of wounds at the right knee Plan: The patient was seen and evaluated by Dr. Chauhan Continue dexamethasone, vitamin supplements Anticoagulated with Eliquis Continue antibiotics Titrate down the FiO2 as tolerated Follow-up checks x-ray in the a.m. We will continue to follow and make further recommendations based on his clinical status I, the cosigning physician, performed a history & physical examination of the patient. Lungs sounds with few scattered rhonchi. Maintaining good O2 saturations in the 90s on 3 L/m per nasal cannula. I discussed the assessment and plan of care with my nurse practitioner, Alaina Brooks. I attest to the above consult dictation as dictated by her. Time with Patient: Greater than 30
[2020-06-17 16:52] LABS: Glucose,Whole Blood 205 mg/dL (75-99)
[2020-06-17] MEDS: INSULIN ASPART (NovoLOG) 100 UNIT/ML VIAL SQ SCH ×2 (17:54→20:50)
[2020-06-17] MEDS: metFORMIN 500 MG TAB PO SCH (17:54)
[2020-06-17] MEDS: CALCIUM CARB-VIT D 500 MG-5 MCG TAB PO SCH (17:54)
[2020-06-17 19:42] LABS: Glucose,Whole Blood 174 mg/dL (75-99)
[2020-06-17] MEDS: ALPRAZolam 0.25 MG TAB PO PRN (20:50)
--- NOTE | 2020-06-17 22:25 | CONS ---
CONSULTATION DATE OF SERVICE: 06/17/2020 REASON FOR CONSULTATION: Covid. HISTORY OF PRESENT ILLNESS: The patient is an 89-year-old male presenting to the ER at [facility] yesterday afternoon for evaluation of shortness of breath. Apparently the patient did mention that she had shortness of breath going on for almost a year, has been recently getting worse. Not a very good historian exactly and does not know exactly when he started noticing having increased shortness of breath. Denies having any chest pain though. Patient did have a cough which is mild in nature, not bringing up any sputum. The patient denies any nausea, no vomiting, no abdominal pain or any diarrhea. With these symptoms, the patient was evaluated by the ER physician. On arrival to the ER, the patient did have a fever of 102 degrees Fahrenheit. The patient did have a low O2 sats of 91% on room air and is currently 99% on 3 L nasal cannula. The patient did have leukopenia as well as lymphopenia. D. dimer mildly elevated creatinine was normal. Lactic acid was elevated. Liver enzymes are normal. Inflammatory markers have not been checked. Procalcitonin was mildly elevated at 0.15. His urine was negative. Covid doe PCR came back positive. The patient did have a chest x-ray which shows patchy opacity posterior mid lung on the lateral view that could represent atelectasis developing infiltrate. The patient has been admitted to the hospital. Infectious Disease was consulted for further management. REVIEW OF SYSTEMS: Positive points have been mentioned in HPI. Rest of systems are negative. PAST MEDICAL HISTORY: Diabetes mellitus, hypertension, history of prostate disorder as well as right knee infection. PAST SURGICAL HISTORY: Joint replacement, prostate surgery, right femur replaced. SOCIAL HISTORY: Occasionally drinks. No drug use. FAMILY HISTORY: Mother history of breast cancer. ALLERGY: TO HYDROCODONE AND TRAMADOL. MEDICATIONS: The patient is currently on zinc, Flomax, Protonix, Glucophage, NovoLog, Advil, dexamethasone, Rocephin 1 g daily and Zithromax, vitamin C, Eliquis, Xanax and inhalers. PHYSICAL EXAMINATION: Blood pressure is 128/77, pulse 79, temperature 97.7, T-max 102. He is 99% on 3 L nasal cannula. General description is an elderly male lying in bed in no distress. No tachypnea or accessory muscles of respiration use. HEENT: Examination no pallor or scleral icterus. Oral mucous membranes dry. NECK: Trachea central. No thyromegaly. LUNGS unlabored breathing, decreased breath sounds at bases. No wheeze. HEART: S1, S2. Regular rate and rhythm. ABDOMEN: Soft, no tenderness. No guarding. No rigidity. EXTREMITIES: No edema of the feet. SKIN examination: No rash or mass palpable. NEUROLOGICAL: Patient is awake, alert, oriented times three. Mood and affect normal. LAB: Hemoglobin 14.1, white count 1.6. The D. dimer was 1.81, creatinine 1.05, lactic acid 2.9. Troponin is mildly elevated. Liver enzymes are normal. Creatinine is normal. Inflammatory marker has not been checked. Blood culture so far negative. Chest x-ray report mentioned above. DIAGNOSTIC IMPRESSION/PLAN: Patient admitted to the hospital with increasing shortness of breath in this patient who did have a fever and leukopenia, elevated D-dimer, normal liver enzymes. Unfortunately, inflammatory marker has not been checked with concern for possible pneumonia related to Covid versus secondary bacterial pneumonia as the patient seemed to have clinically responded to the antibiotic therapy started yesterday and it is not very clear when exactly his symptoms started. Not sure if the patient will qualify for Remdesivir at this point. PLAN: 1. In view of the clinical response to Rocephin and Zithromax, plan to continue with current antibiotics. 2. Try to obtain sputum for Gram stain culture. 3. Continue with Eliquis, dexamethasone, zinc, ascorbic acid. 4. We will follow on clinical condition and further adjust medication if needed. Thank you for this consultation. We will follow this patient along with you. MMODL / IJN: [id number] / MTDD
[2020-06-18] MEDS: SODIUM CHLORIDE 0.9% 1,000 ML IV SCH ×2 (03:39→18:04)
--- NOTE | 2020-06-18 07:45 | XR ---
EXAMINATION TYPE: XR chest 1V portable DATE OF EXAM: 06/18/2020 COMPARISON: 06/16/2020. HISTORY: Covid pneumonia. TECHNIQUE: Single frontal view of the chest is obtained. FINDINGS: There is no focal air space opacity, pleural effusion, or pneumothorax seen. The posterior opacity is better depicted on the prior study. The cardiac silhouette size is mildly enlarged. The osseous structures are intact. IMPRESSION: No significant infiltrate on this single view.
[2020-06-18 07:46] LABS: Glucose,Whole Blood 169 mg/dL (75-99)
--- NOTE | 2020-06-18 08:53 | P.PN ---
Subjective Progress Note Date: 06/18/20 This is an 89-year-old gentleman with a past medical history of asthma, hypertension, diabetes mellitus, MRSA and a wound on his knee and prostate cancer. He is anticoagulated on Eliquis at home. Does not follow with a aerospace stress engineer. Been having complaints of shortness of breath for the last several days. He was ultimately brought to the emergency department yesterday due to some confusion, weakness, worsening shortness of breath and a cough. He was found to be positive for cocaine 19. Chest x-ray on admission showed right lower lobe infiltrate. We were asked to the patient in consultation due to elevated troponin level. He does complain of some chest discomfort but only when coughing and bilateral. EKG showed sinus mechanism with right bundle branch block and frequent PACs. This morning patient is sinus bradycardia. He is overall feeling somewhat better. Continues to complain of a cough and shortness of breath. Mentation seems to be back to baseline. Continues to complain of weakness. Laboratory values showed a white blood cell count of 1600, BUN 20, creatinine 0.83, NT proBNP of 1230 and troponins of 0.043, 0.047 and 0.060. 06/18/2020 Chart has been reviewed and I spoke with nursing staff. Patient is overall stable. Vital signs are stable. He is maintaining oxygen saturations in the 90s on 2-3 L. He is afebrile. Echocardiogram done yesterday showed low normal LV systolic function with an ejection fraction of 50-55%, trace AR, mild AF and mild TR. Patient has been having some bradycardia while sleeping with 2 second pauses. In reviewing the rhythm strips there does not appear to be any type of heart block. Patient appears to be sinus bradycardia on the monitor. Heart rate this morning is in the 60s. He is on no rate lowering medications. According to nursing staff patient has had no complaints through the night. He's had no chest discomfort. His breathing is somewhat improved. Chest x-ray this morning showed no significant infiltrate on this on a single view. Objective - Vital Signs Vital signs: Vital Signs Temp 97.5 F L 06/18/20 01:00 Pulse 66 06/18/20 01:00 Resp 15 06/18/20 01:00 BP 115/60 06/18/20 01:00 Pulse Ox 95 06/18/20 01:00 Intake & Output 06/17/20 06/18/20 06/18/20 18:59 06:59 18:59 Intake Total 240 Output Total 650 400 Balance -650 -160 Weight 90.718 kg Intake: Oral 240 Output: Urine 650 400 Uretheral (Oro) 650 Other: Voiding Method Indwelling Catheter Indwelling Catheter # Voids 480 - Exam This is a 89-year-old gentleman. Physical examination was deferred secondary to COVID-19 VITAL SIGNS: Blood pressure 115/60, heart rate 66, respirations 15, temp 97.5. Patient is 95% on 2 L via nasal cannula. - Labs CBC & Chem 7: 06/18/20 05:50 06/18/20 05:50 Labs: Abnormal Lab Results - Last 24 Hours (Table) 06/17/20 06/17/20 06/17/20 Range/Units 10:15 10:15 11:48 WBC 1.6 L (3.8-10.6) k/uL Plt Count 142 L (150-450) k/uL Neutrophils # 0.9 L (1.3-7.7) k/uL Lymphocytes # 0.5 L (1.0-4.8) k/uL Chloride 108 H (98-107) mmol/L Carbon Dioxide 20 L (22-30) mmol/L Glucose 207 H (74-99) mg/dL POC Glucose (mg/dL) 204 H (75-99) mg/dL Calcium 8.0 L (8.4-10.2) mg/dL 06/17/20 06/17/20 06/18/20 Range/Units 16:50 19:36 07:45 WBC (3.8-10.6) k/uL Plt Count (150-450) k/uL Neutrophils # (1.3-7.7) k/uL Lymphocytes # (1.0-4.8) k/uL Chloride (98-107) mmol/L Carbon Dioxide (22-30) mmol/L Glucose (74-99) mg/dL POC Glucose (mg/dL) 205 H 174 H 169 H (75-99) mg/dL Calcium (8.4-10.2) mg/dL Microbiology - Last 24 Hours (Table) 06/16/20 16:00 Blood Culture - Preliminary Blood No Growth after 24 hours 06/16/20 16:02 Blood Culture - Preliminary Blood No Growth after 24 hours 06/17/20 03:00 Urine Culture - Preliminary Urine,Voided Assessment and Plan Assessment: #1 COVID-19 with pneumonia #2 elevated troponins likely secondary to above #3 hypertension #4 diabetes mellitus #5 bradycardia, appears to be asymptomatic Plan: From cardiology perspective the patient is not currently on any rate lowering medications. Bradycardia seems to be asymptomatic at this time with no pauses longer than 2 seconds. Continue to follow the patient and provide further recommendations based on patient's symptoms and diagnostic findings. The above dictated assessment and findings were discussed with signing physician. The impression and plan of care have been directed as dictated. Joseline Jones, Nurse Practitioner, acting as scribe for signing physician.
[2020-06-18] MEDS: ALBUTEROL HFA INHALER INHALATION SCH ×4 (09:01→21:40)
[2020-06-18 09:12] LABS: Basophils # (A) 0.01 X 10*3/uL (0.00-0.10); Basophils % (A) 0.3 %; Eosinophils # (A) 0 X 10*3/uL (0.04-0.35); Eosinophils % (A) 0 %; HCT 40.9 % (39.6-50.0); HGB 13.5 g/dL (13.0-17.0); Lymphocytes # (A) 0.69 X 10*3/uL (0.90-5.00); Lymphocytes % (A) 17.4 %; MCH 30.2 pg (27.0-32.0); MCV 91.5 fL (80.0-97.0); Monocytes # (A) 0.41 X 10*3/uL (0.20-1.00); Monocytes % (A) 10.4 %; Neutrophils # (A) 2.83 X 10*3/uL (1.80-7.70); Neutrophils % (A) 71.4 %; Platelet Count 130 X 10*3/uL (140-440); RBC 4.47 X 10*6/uL (4.40-5.60); RDW 13.5 % (11.5-14.5); WBC 3.96 X 10*3/uL (4.50-10.00)
[2020-06-18 10:24] LABS: African American GFR (CKD) 77.5 (60.0-200.0); Calcium 8.7 mg/dL (8.7-10.3); Non-African American GFR(CKD) 66.9 (60.0-200.0); Potassium 4.9 mmol/L (3.5-5.5)
[2020-06-18] MEDS: ASCORBIC ACID 500 MG TAB PO SCH (10:24)
[2020-06-18] MEDS: CHOLECALCIFEROL 25 MCG (1000 IU) TABLET PO SCH (10:24)
[2020-06-18] MEDS: APIXABAN 2.5 MG TABLET PO SCH ×2 (10:24→21:07)
[2020-06-18] MEDS: metFORMIN 500 MG TAB PO SCH ×2 (10:24→18:03)
[2020-06-18] MEDS: dexAMETHasone 2 MG TAB PO SCH (10:24)
[2020-06-18] MEDS: TAMSULOSIN 0.4 MG CAP.ER.24H PO SCH (10:25)
[2020-06-18] MEDS: PANTOPRAZOLE 40 MG TABLET PO SCH (10:25)
[2020-06-18] MEDS: INSULIN ASPART (NovoLOG) 100 UNIT/ML VIAL SQ SCH ×4 (10:25→21:07)
[2020-06-18] MEDS: CALCIUM CARB-VIT D 500 MG-5 MCG TAB PO SCH ×2 (10:25→18:04)
[2020-06-18] MEDS: ZINC SULFATE 220 MG CAP PO SCH (10:26)
[2020-06-18 10:42] LABS: Anion Gap 7.4 mmol/L (4.00-12.00); Carbon Dioxide 24.6 mmol/L (21.6-31.8)
[2020-06-18 11:47] LABS: Glucose,Whole Blood 185 mg/dL (75-99)
--- NOTE | 2020-06-18 12:23 | P.PN ---
Subjective Progress Note Date: 06/18/20 Principal diagnosis: Shortness of breath, weakness. This is an 89-year-old gentleman who follows with Dr. Chamberlain as his primary care provider. 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 He had been having aggressive shortness of breath and weakness and his was unable to get him up out of a chair and EMS was called and he was brought into the emergency room yesterday. 6 revealed some patchy opacities in the mid lung suspected atelectasis/infiltrate. He also tested positive for the doe virus. White count 1.6. Hemoglobin 14.2. Platelet count 142. D-dimer 1.81. Sodium 137. Potassium 4.9. Creatinine 0.3. Troponins 0.043, 0.047, 0.060. ProBNP 12:30. Pro-calcitonin 0.15. Patient is seen today in consultation on the observation unit. He is quite a poor historian. Difficult to get much information from the patient. He is currently maintaining O2 saturations in the high 90s on 3 L/m per nasal cannula. He is currently afebrile. Hemodynamically stable. He's been initiated on bronchodilators, ceftriaxone and azithromycin, anticoagulated with Eliquis, dexamethasone and vitamin supplements. Progress note dated 06/18/2020. 89-year-old male, seen yesterday in consultation, with acute hypoxemic respiratory failure secondary to COVID 19 pneumonia. The patient also has a history of diabetes mellitus, hypertension, chronic indwelling Oro catheter, and history of MRSA infection of the right knee. The patient was started on Decadron and vitamin supplements. His been anticoagulated with Eliquis. The patient's currently on 3 L nasal cannula. He's not receiving any IV fluids. His only complaint today was that he was constipated. White count 3.96, implement 13.5, hematocrit 40.9, platelet count 130,000. Sodium, potassium, chloride, CO2, anion gap, BUN, and creatinine were all normal. D-dimer was 1.81. Chest x-ray appears relatively normal. Objective - Vital Signs Vital signs: Vital Signs Temp 97.7 F 06/18/20 08:00 Pulse 64 06/18/20 08:00 Resp 15 06/18/20 01:00 BP 126/82 06/18/20 08:00 Pulse Ox 98 06/18/20 08:00 Intake & Output 06/17/20 06/18/20 06/18/20 18:59 06:59 18:59 Intake Total 240 Output Total 650 400 Balance -650 -160 Weight 90.718 kg Intake: Oral 240 Output: Urine 650 400 Uretheral (Oro) 650 Other: Voiding Method Indwelling Catheter Indwelling Catheter # Voids 480 - Exam No acute distress, oriented 3. Currently on 3 L nasal cannula. No conversational dyspnea or use of accessory muscles. HEENT examination is grossly unremarkable. Mucous membranes are moist. No oral lesions. Neck supple. Full range of motion. No adenopathy thyromegaly or neck vein distention. Cardiovascular examination reveals regular rhythm rate. S1-S2 normal. No S3 or S4. No discernible murmur noted. Heart rate 64 bpm. Lungs reveal bilateral scattered rhonchi, without wheezes or crackles. Breath sounds equal bilaterally. Abdomen soft bowel sounds are heard. No masses or tenderness. Extremities are intact. No cyanosis clubbing or edema. Chronic wounds of the lower extremities. Skin is without rash or lesion. Neurologic examination is brief but nonfocal. - Labs CBC & Chem 7: 06/18/20 05:50 06/18/20 05:50 Labs: Abnormal Lab Results - Last 24 Hours (Table) 06/17/20 06/17/20 06/17/20 Range/Units 10:15 16:50 19:36 WBC (4.50-10.00) X 10*3/uL Plt Count (140-440) X 10*3/uL Neutrophils # 0.9 L (1.3-7.7) k/uL Lymphocytes # 0.5 L (1.0-4.8) k/uL Eosinophils # (0.04-0.35) X 10*3/uL BUN/Creatinine Ratio (12.00-20.00) Ratio Glucose (70-110) mg/dL POC Glucose (mg/dL) 205 H 174 H (75-99) mg/dL 06/18/20 06/18/20 06/18/20 Range/Units 05:50 05:50 07:45 WBC 3.96 L (4.50-10.00) X 10*3/uL Plt Count 130 L (140-440) X 10*3/uL Neutrophils # (1.3-7.7) k/uL Lymphocytes # 0.69 L (1.0-4.8) k/uL Eosinophils # 0 L (0.04-0.35) X 10*3/uL BUN/Creatinine Ratio 27.00 H (12.00-20.00) Ratio Glucose 154 H (70-110) mg/dL POC Glucose (mg/dL) 169 H (75-99) mg/dL 06/18/20 Range/Units 11:46 WBC (4.50-10.00) X 10*3/uL Plt Count (140-440) X 10*3/uL Neutrophils # (1.3-7.7) k/uL Lymphocytes # (1.0-4.8) k/uL Eosinophils # (0.04-0.35) X 10*3/uL BUN/Creatinine Ratio (12.00-20.00) Ratio Glucose (70-110) mg/dL POC Glucose (mg/dL) 185 H (75-99) mg/dL Microbiology - Last 24 Hours (Table) 06/16/20 16:00 Blood Culture - Preliminary Blood No Growth after 24 hours 06/16/20 16:02 Blood Culture - Preliminary Blood No Growth after 24 hours 06/17/20 03:00 Urine Culture - Preliminary Urine,Voided Assessment and Plan Assessment: Acute hypoxemic respiratory failure secondary to acute COVID 19 pneumonia. Diabetes mellitus. History of hypertension. Chronic indwelling Oro catheter. History of MRSA infection of the lower extremities. Prior history of VRE infection. History of asthma. Plan: Plan dated 06/18/2020. Currently, the most recent x-ray looks we will continue to follow. Medications are reviewed and are appropriate. The patient was seen in consultation yesterday. He does have some underlying asthma as well. We'll continue to follow make recommendations were appropriate. Prognosis is guarded. Time with Patient: Less than 30
[2020-06-18] MEDS: AZITHROMYCIN 500 MG in SODIUM CHLORIDE 0.9% 250 ML IVPB SCH (13:44)
[2020-06-18 17:50] LABS: Glucose,Whole Blood 126 mg/dL (75-99)
--- NOTE | 2020-06-18 20:39 | CT ---
EXAMINATION TYPE: CT angio chest DATE OF EXAM: 06/18/2020 COMPARISON: 09/07/2018 HISTORY: Elevated d-dimer, +covid. CT DLP: 421.4 mGycm Automated exposure control for dose reduction was used. CONTRAST: Performed with IV Contrast, patient injected with 100ml mL of Isovue 370. There are 3-D post processed images. There is mild pleural thickening at the posterior lung bases. Heart is borderline enlarged. There is no pericardial effusion. There is some mild interstitial infiltrate and atelectasis at both lung base s. There are a few paratracheal lymph nodes measuring up to 1 cm. There is normal contrast opacification of the pulmonary arteries. There are no filling defects. There is some spurring in the thoracic spine. IMPRESSION: No evidence of pulmonary embolism. Mild subsegmental atelectasis and scarring at the lung bases no ballard spicious pulmonary mass.
[2020-06-18 20:47] LABS: Glucose,Whole Blood 161 mg/dL (75-99)
--- NOTE | 2020-06-18 20:49 | PN ---
PROGRESS NOTE DATE OF SERVICE: 06/18/2020 REASON FOR FOLLOWUP: Covid pneumonia. INTERVAL HISTORY: The patient is currently afebrile. The patient is feeling slightly better. He is breathing comfortably. The patient denies any chest pain. He did have minimal cough, not bringing up sputum. No nausea, no vomiting. No abdominal pain. No diarrhea. EXAMINATION: Blood pressure 106/65, pulse of 67, temperature 97.4. He is 99% on 2 L nasal cannula. General description is an elderly male lying in bed in no distress. Respiratory system: Unlabored breathing, decreased breath sounds in the base, no wheeze. Heart S1, S2. Regular rate and rhythm. Abdomen soft, no tenderness. LABS: Hemoglobin is 13.5, white count 3.96, creatinine 1.0. Urine showing Gram-negative bacilli. Urine was mildly positive. DIAGNOSTIC IMPRESSION/PLAN: 1. Patient admitted to hospital with weakness in this patient who did have a chest x- ray negative for any infiltrate. Did have positive Covid. Not considered to be a candidate for Remdesivir. Currently on zinc, dexamethasone, Eliquis. 2. Gram-negative urinary tract infection covered with Rocephin. 3. Continue supportive care. MMODL / IJN: [id number] /
--- NOTE | 2020-06-18 22:14 | PN ---
PROGRESS NOTE DATE OF SERVICE: 06/18/2020 This 89-year-old gentleman who was admitted with COPD exacerbation also had acute COVID- 19 infection as well as interstitial pneumonia also. The patient had a chest x-ray repeated today which showed possibly minimal infiltrates and pulse ox 99% on 2 L. The patient D-dimer was elevated to 1.81. Creatinine is normal. Patient being closely monitored. PAST MEDICAL HISTORY: Reviewed. REVIEW OF SYSTEMS: CARDIOVASCULAR SYSTEM: No angina or palpitations. RESPIRATION as mentioned earlier. GI: As mentioned earlier. : No dysuria. NERVOUS SYSTEM: No numbness or weakness. CURRENT MEDICATIONS: Reviewed and include: [place], Ventolin, Xanax, Eliquis, vitamin C, Zithromax and Rocephin. PHYSICAL EXAMINATION: The patient is alert and oriented times three. Pulse 67, blood pressure 103/61, respiration 16, temperature 97.4, pulse ox 98% on 2 L HEENT: Conjunctivae normal. NECK: No JVD. CARDIOVASCULAR: S1, S2 muffled. RESPIRATORY SYSTEM: Breath sounds diminished at the bases. A few scattered rhonchi. ABDOMEN: Soft, nontender. NERVOUS SYSTEM: No focal deficits. LABS: WBC 3.9, hemoglobin 13.2, platelets 130. Other labs are noted. ASSESSMENT: 1. Chronic obstructive pulmonary disease acute exacerbation with possible acute right lower lobe pneumonia, possibly community-acquired. 2. Possible acute COVID-19 infection with interstitial pneumonia and acute hypoxic respiratory failure. 3. Possible sepsis, elevated lactic acid, present on admission. 4. Troponin 0.043 indeterminate. 5. Mild aortic stenosis. 6. Elevated serum procalcitonin. 7. Elevated serum kinase. 8. Hyponatremia. 9. Leukopenia. 10.Thrombocytopenia possibly secondary to viral infection, Covid 19. 11.History of asthma. 12.Diabetes mellitus type 2. 13.Hypertension. 14.History of prostate disorder. 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 16.History of degenerative joint disease. 17.History of nicotine dependence. 18.Obesity with body mass index of 31.9. 19.Hypocalcemia. RECOMMENDATIONS AND DISCUSSION: Continue current medications, management and symptomatic treatment. Recommend CTA of the chest with elevated D-dimer. Otherwise, I would also recommend continue the rest of the medications. Continue Lovenox. Continue with Rocephin. Guarded prognosis. Further recommendations to follow. MMODL / IJN: [id number] /
[2020-06-19 07:11] LABS: Glucose,Whole Blood 171 mg/dL (75-99)
[2020-06-19] MEDS: ALBUTEROL HFA INHALER INHALATION SCH ×4 (07:33→20:40)
[2020-06-19] MEDS: INSULIN ASPART (NovoLOG) 100 UNIT/ML VIAL SQ SCH ×4 (08:36→21:22)
[2020-06-19] MEDS: PANTOPRAZOLE 40 MG TABLET PO SCH (08:37)
[2020-06-19] MEDS: metFORMIN 500 MG TAB PO SCH ×2 (08:37→17:47)
[2020-06-19] MEDS: APIXABAN 2.5 MG TABLET PO SCH ×2 (08:37→21:22)
[2020-06-19] MEDS: dexAMETHasone 2 MG TAB PO SCH (08:37)
[2020-06-19] MEDS: CALCIUM CARB-VIT D 500 MG-5 MCG TAB PO SCH ×2 (08:37→17:47)
[2020-06-19] MEDS: TAMSULOSIN 0.4 MG CAP.ER.24H PO SCH (08:37)
[2020-06-19] MEDS: ZINC SULFATE 220 MG CAP PO SCH (08:37)
[2020-06-19] MEDS: CHOLECALCIFEROL 25 MCG (1000 IU) TABLET PO SCH (08:37)
[2020-06-19] MEDS: ASCORBIC ACID 500 MG TAB PO SCH (08:37)
[2020-06-19] MEDS: AZITHROMYCIN 500 MG in SODIUM CHLORIDE 0.9% 250 ML IVPB SCH (10:13)
[2020-06-19 11:09] LABS: Glucose,Whole Blood 201 mg/dL (75-99)
--- NOTE | 2020-06-19 11:58 | P.PN ---
Subjective Progress Note Date: 06/19/20 Principal diagnosis: Acute hypoxic failure secondary to acute Covid 19 pneumonia. This is an 89-year-old gentleman who follows with Dr. Chamberlain as his primary care provider. 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 He had been having aggressive shortness of breath and weakness and his was unable to get him up out of a chair and EMS was called and he was brought into the emergency room yesterday. 6 revealed some patchy opacities in the mid lung suspected atelectasis/infiltrate. He also tested positive for the doe virus. White count 1.6. Hemoglobin 14.2. Platelet count 142. D-dimer 1.81. Sodium 137. Potassium 4.9. Creatinine 0.3. Tr oponins 0.043, 0.047, 0.060. ProBNP 12:30. Pro-calcitonin 0.15. Patient is seen today in consultation on the observation unit. He is quite a poor historian. Difficult to get much information from the patient. He is currently maintaining O2 saturations in the high 90s on 3 L/m per nasal cannula. He is currently afebrile. Hemodynamically stable. He's been initiated on bronchodilators, ceftriaxone and azithromycin, anticoagulated with Eliquis, dexamethasone and vitamin supplements. Progress note dated 06/18/2020. 89-year-old male, seen yesterday in consultation, with acute hypoxemic re spiratory failure secondary to COVID 19 pneumonia. The patient also has a history of diabetes mellitus, hypertension, chronic indwelling Oro catheter, and history of MRSA infection of the right knee. The patient was started on Decadron and vitamin supplements. His been anticoagulated with Eliquis. The patient's currently on 3 L nasal cannula. He's not receiving any IV fluids. His only complaint today was that he was constipated. White count 3.96, implement 13.5, hematocrit 40.9, platelet count 130,000. Sodium, potassium, chloride, CO2, anion gap, BUN, and creatinine were all normal. D-dimer was 1.81. Chest x-ray appears relatively normal. Patient was reevaluated today on 06/19/2020, patient is doing well today, breathing easier, he is on 2 L nasal cannula with O2 saturation of 99%. CT angiogram of the chest no evidence of pulmonary embolism and it showed mostly atelectasis. Labs today were relatively unremarkable and d-dimer is 1.81. Patient did not require any REM or convalescent plasma or toci Objective - Vital Signs Vital signs: Vital Signs Temp 97.8 F 06/19/20 08:00 Pulse 69 06/19/20 08:00 Resp 18 06/19/20 08:00 BP 148/99 06/19/20 08:00 Pulse Ox 99 06/19/20 08:00 Intake & Output 06/18/20 06/19/20 06/19/20 18:59 06:59 18:59 Intake Total 480 Output Total 700 900 Balance -700 -420 Intake: Oral 480 Output: Urine 700 900 Other: Voiding Method Indwelling Catheter Indwelling Catheter Indwelling Catheter # Voids 1 - Exam GENERAL EXAM: Revealed a 89-year-old white male, in no distress. HEAD: Normocephalic. EENT: PERRLA, EOMI, anicteric, moist mucous membranes, no neck masses no JVD no stridor. CHEST: No chest wall deformity. LUNGS: Symmetrical chest expansion, good breath sound bilaterally. No rhonchi and no wheezes. CVS: S1 and S2 normal with no audible murmur, regular rhythm. ABDOMEN: No hepatosplenomegaly, normal bowel sounds, no guarding or rigidity. SKIN: No rashes CENTRAL NERVOUS SYSTEM: Alert and oriented 3 in no gross focal deficits. EXTREMITIES: Chronic wounds of the lower extremities. Good pulses bilaterally. - Labs CBC & Chem 7: 06/18/20 05:50 06/18/20 05:50 Labs: Abnormal Lab Results - Last 24 Hours (Table) 06/18/20 06/18/20 06/19/20 Range/Units 17:48 20:46 07:09 POC Glucose (mg/dL) 126 H 161 H 171 H (75-99) mg/dL 06/19/20 Range/Units 11:07 POC Glucose (mg/dL) 201 H (75-99) mg/dL Microbiology - Last 24 Hours (Table) 06/17/20 03:00 Urine Culture - Final Urine,Voided Pseudomonas aeruginosa 06/16/20 16:00 Blood Culture - Preliminary Blood No Growth after 48 hours 04/02/21 16:02 Blood Culture - Preliminary Blood No Growth after 48 hours Assessment and Plan Assessment: Impression: Acute hypoxic respiratory failure secondary to acute code 19 pneumonitis mostly affecting the right lower lobe. Type 2 diabetes. Benign essential hypertension. Chronic indwelling Oro catheter. History of MRSA wound infection of the right knee. Recommendation: Continue the present covid 19 cocktail. Continue present meds, including eliquis Would consider discharging the patient home today. Patient is cleared from my perspective to be discharged home, discussed with the admitting physician. Time with Patient: Less than 30
--- NOTE | 2020-06-19 12:40 | P.PN ---
Subjective Progress Note Date: 06/19/20 CHIEF COMPLAINT: Bradycardia HISTORY OF PRESENT ILLNESS: This is an 89-year-old gentleman with a past medical history of asthma, hypertension, diabetes mellitus, MRSA and a wound on his knee and prostate cancer. He is anticoagulated on Eliquis at home. Does not follow with a principal network architect. Been having complaints of shortness of breath for the last several days. He was ultimately brought to the emergency department yesterday due to some confusion, weakness, worsening shortness of breath and a cough. He was found to be positive for cocaine 19. Chest x-ray on admission showed right lower lobe infiltrate. We were asked to the patient in consultation due to elevated troponin level. He does complain of some chest discomfort but only when coughing and bilateral. EKG showed sinus mechanism with right bundle branch block and frequent PACs. This morning patient is sinus bradycardia. He is overall feeling somewhat better. Continues to complain of a cough and shortness of breath. Mentation seems to be back to baseline. Continues to complain of weakness. Laboratory values showed a white blood cell count of 1600, BUN 20, creatinine 0.83, NT proBNP of 1230 and troponins of 0.043, 0.047 and 0.060. 06/18/2020 Chart has been reviewed and I spoke with nursing staff. Patient is overall stable. Vital signs are stable. He is maintaining oxygen saturations in the 90s on 2-3 L. He is afebrile. Echocardiogram done yesterday showed low normal LV systolic function with an ejection fraction of 50-55%, trace AR, mild AF and mild TR. Patient has been having some bradycardia while sleeping with 2 second pauses. In reviewing the rhythm strips there does not appear to be any type of heart block. Patient appears to be sinus bradycardia on the monitor. Heart rate this morning is in the 60s. He is on no rate lowering medications. According to nursing staff patient has had no complaints through the night. He's had no chest discomfort. His breathing is somewhat improved. Chest x-ray this morning showed no significant infiltrate on this on a single view. 06/19/2020 Patient on 2L nasal cannula with oxygen saturations greater than 92%. Blood pressure 148/99. Heart rate in the 50s and 60s. Patient is afebrile. T elemetry reviewed with no significant pauses or heart block noted. PHYSICAL EXAM: Thorough physical exam not completed secondary to limited evaluation/examination and due to Covid19 ASSESSMENT: Covid 19 Pneumonia Elevated troponins, secondary to above, no evidence of acute coronary syndrome Hypertension Diabetes mellitus Asymptomatic bradycardia PLAN: Continue telemetry monitoring No significant bradycardia or heart block noted on telemetry We will sign off. Please reconsult if needed Patient may follow up outpatient with Dr. Cervantes Nurse practitioner note has been reviewed by physician. Signing provider agrees with the documented findings, assessment, and plan of care. Objective - Vital Signs Vital signs: Vital Signs Temp 97.8 F 06/19/20 08:00 Pulse 69 06/19/20 08:00 Resp 18 06/19/20 08:00 BP 148/99 06/19/20 08:00 Pulse Ox 99 06/19/20 08:00 Intake & Output 06/18/20 06/19/20 06/19/20 18:59 06:59 18:59 Intake Total 480 Output Total 700 900 Balance -700 -420 Intake: Oral 480 Output: Urine 700 900 Other: Voiding Method Indwelling Catheter Indwelling Catheter Indwelling Catheter # Voids 1 - Labs CBC & Chem 7: 06/18/20 05:50 06/18/20 05:50 Labs: Abnormal Lab Results - Last 24 Hours (Table) 06/18/20 06/18/20 06/19/20 Range/Units 17:48 20:46 07:09 POC Glucose (mg/dL) 126 H 161 H 171 H (75-99) mg/dL 06/19/20 Range/Units 11:07 POC Glucose (mg/dL) 201 H (75-99) mg/dL Microbiology - Last 24 Hours (Table) 06/17/20 03:00 Urine Culture - Final Urine,Voided Pseudomonas aeruginosa 06/16/20 16:00 Blood Culture - Preliminary Blood No Growth after 48 hours 06/16/20 16:02 Blood Culture - Preliminary Blood No Growth after 48 hours
--- NOTE | 2020-06-19 13:20 | CDI ---
Documentation Clarification Form Date: 06/19/2020 01:07:43 PM From: Thania Das CCS, CCDS Admit Date: 06/16/2020 05:18:00 PM Patient Name: Veronica Francis Visit Number: [id number] Discharge Date: ATTENTION: The Clinical Documentation Specialists (CDI) and [facility] Coding Staff appreciate your assistance in clarifying documentation. Please respond to the clarification below the line at the bottom and electronically sign. The CDI & [facility] Coding staff will review the response and follow-up if needed. Please note: Queries are made part of the Legal Health Record. If you have any questions, please contact the author of this message via ITS. Dr. Bucky Raman: Per the 06/18 Infectious Disease Progress Note: Gram-negative UTI on Rocephin is documented. Per the 06/16 ED Note and the 06/17 Pulmonary Consult History of Present Illness, the patient has a Chronic Indwelling Silverio Catheter. History/Risk Factors per the 06/16 ED Note Past Medical History: Asthma, DM, Hypertension, Prostate Cancer, MRS & VRE right knee. Clinical Indicators: Presented to the ED via EMS on 06/16 with SOB. Admitted with Acute Exacerbation of COPD, Acute Respiratory Distress Syndrome, COVID-19 Pneumonia, possible Sepsis (per the attending 06/18 Progress Note) and Dehydration. VS 06/16: T 98.1, P 81 - 125, R 26 (SOB, cough, retracting), BP 102/72, PO 91 2Lnc BMI: 31.3 06/16 LAB: WBC 3.5, Pl Ct 146, Lymph 0.7, D Dimer 1.81, Na 136, Glucose 155, Creatinine Kinase 277, Troponin 0.047, 0.060; Procalcitonin 0.15 06/16 COVID Positive 06/17 UA: Trace Protein, Mod blood, Small Esterase, RBC 6. Cultures: 06/16 Blood Cultures x2: preliminary: neg @ 48 hrs. 06/17 Urine Culture: Pseudomonas aeruginosa Treatment 06/16: INH Duoneb, IV fl bolus 1,000 mls @ 999 mls/hr q1H, IV Solumedrol, INH Ventolin, IV fluid 1,000 mls @ 50 mls/hr q20H, IV Azithromycin, IV Rocephin 4/3 po Amoxicillin, Vit C, Vit D3, po Hexadrol, po Orazinc. Please clarify the etiology of the UTI, if known: [ ] UTI related to Silverio catheter [ ] UTI not related to Silverio catheter [ ] Other condition, please specify [ ] Unable to determine (Template Last Revised: May 2020) UTI Related to silverio catheter MTDD
[2020-06-19] MEDS: SODIUM CHLORIDE 0.9% 1,000 ML IV SCH (14:03)
[2020-06-19 17:04] LABS: Glucose,Whole Blood 107 mg/dL (75-99)
[2020-06-19 20:35] LABS: Glucose,Whole Blood 190 mg/dL (75-99)
--- NOTE | 2020-06-20 00:58 | PN ---
PROGRESS NOTE DATE OF SERVICE: 06/19/2020. REASON FOR FOLLOWUP: Pneumonia. INTERVAL HISTORY: The patient is currently afebrile. The patient is feeling better, has been breathing comfortably. The patient is currently on room air. Denies having any chest pain. He did have a cough, not bringing up sputum. No abdominal pain. No diarrhea. PHYSICAL EXAMINATION: Blood pressure 142/80 with a pulse of 73, temperature 98.4. He is 96% on room air. General description: The patient is an elderly male lying in bed in no distress. Respiratory system: Unlabored breathing, decreased intensity of breath sounds. No wheeze. Heart S1, S2. Regular rate and rhythm. Abdomen soft, no tenderness. LABS: No new labs have been obtained today. DIAGNOSTIC IMPRESSION AND PLAN: Patient admitted to the hospital with fever, shortness of breath which is likely multifactorial in this patient who did have a component of COVID-19 infection. Clinical suspicion low for underlying secondary bacterial pneumonia. The patient is covered with Eliquis, dexamethasone, zinc, ascorbic acid to continue and monitor clinical course closely. MMODL / IJN: [id number] /
[2020-06-20] MEDS: ALBUTEROL HFA INHALER INHALATION SCH ×3 (07:12→15:40)
[2020-06-20 07:13] LABS: Glucose,Whole Blood 146 mg/dL (75-99)
[2020-06-20] MEDS ORDERED: AZITHROMYCIN 500 MG TAB PO SCH (09:00)
[2020-06-20] MEDS: INSULIN ASPART (NovoLOG) 100 UNIT/ML VIAL SQ SCH ×2 (10:15→13:45)
[2020-06-20] MEDS: APIXABAN 2.5 MG TABLET PO SCH (10:16)
[2020-06-20] MEDS: ZINC SULFATE 220 MG CAP PO SCH (10:16)
[2020-06-20] MEDS: metFORMIN 500 MG TAB PO SCH (10:16)
[2020-06-20] MEDS: CALCIUM CARB-VIT D 500 MG-5 MCG TAB PO SCH (10:16)
[2020-06-20] MEDS: TAMSULOSIN 0.4 MG CAP.ER.24H PO SCH (10:16)
[2020-06-20] MEDS: PANTOPRAZOLE 40 MG TABLET PO SCH (10:16)
[2020-06-20] MEDS: ASCORBIC ACID 500 MG TAB PO SCH (10:16)
[2020-06-20] MEDS: dexAMETHasone 2 MG TAB PO SCH (10:17)
[2020-06-20] MEDS: SODIUM CHLORIDE 0.9% 1,000 ML IV SCH (10:21)
[2020-06-20] MEDS: CHOLECALCIFEROL 25 MCG (1000 IU) TABLET PO SCH (11:29)
[2020-06-20 11:32] LABS: Glucose,Whole Blood 130 mg/dL (75-99)
--- NOTE | 2020-06-20 12:12 | P.PN ---
Subjective Progress Note Date: 06/20/20 Principal diagnosis: Acute hypoxic failure secondary to acute Covid 19 pneumonia. This is an 89-year-old gentleman who follows with Dr. Chamberlain as his primary care provider. 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 He had been having aggressive shortness of breath and weakness and his was unable to get him up out of a chair and EMS was called and he was brought into the emergency room yesterday. 6 revealed some patchy opacities in the mid lung suspected atelectasis/infiltrate. He also tested positive for the doe virus. White count 1.6. Hemoglobin 14.2. Platelet count 142. D-dimer 1.81. Sodium 137. Potassium 4.9. Creatinine 0.3. Tr oponins 0.043, 0.047, 0.060. ProBNP 12:30. Pro-calcitonin 0.15. Patient is seen today in consultation on the observation unit. He is quite a poor historian. Difficult to get much information from the patient. He is currently maintaining O2 saturations in the high 90s on 3 L/m per nasal cannula. He is currently afebrile. Hemodynamically stable. He's been initiated on bronchodilators, ceftriaxone and azithromycin, anticoagulated with Eliquis, dexamethasone and vitamin supplements. Progress note dated 06/18/2020. 89-year-old male, seen yesterday in consultation, with acute hypoxemic re spiratory failure secondary to COVID 19 pneumonia. The patient also has a history of diabetes mellitus, hypertension, chronic indwelling Oro catheter, and history of MRSA infection of the right knee. The patient was started on Decadron and vitamin supplements. His been anticoagulated with Eliquis. The patient's currently on 3 L nasal cannula. He's not receiving any IV fluids. His only complaint today was that he was constipated. White count 3.96, implement 13.5, hematocrit 40.9, platelet count 130,000. Sodium, potassium, chloride, CO2, anion gap, BUN, and creatinine were all normal. D-dimer was 1.81. Chest x-ray appears relatively normal. Patient was reevaluated today on 06/19/2020, patient is doing well today, breathing easier, he is on 2 L nasal cannula with O2 saturation of 99%. CT angiogram of the chest no evidence of pulmonary embolism and it showed mostly atelectasis. Labs today were relatively unremarkable and d-dimer is 1.81. Patient did not require any REM or convalescent plasma or toci Patient was reevaluated today on 06/20/2020, continues to do well, he is on room air, O2 sats was 96%. No significant issues overnight, patient is going to be discharged home today but he needs placement and I believe he is going to [facility]/group home. Objective - Vital Signs Vital signs: Vital Signs Temp 98.2 F 06/20/20 08:00 Pulse 65 06/20/20 08:00 Resp 18 06/20/20 08:00 BP 136/76 06/20/20 08:00 Pulse Ox 96 06/20/20 08:00 Intake & Output 06/19/20 06/20/20 06/20/20 18:59 06:59 18:59 Output Total 5908 [id number] Balance -1400 -900 -1600 Output: Urine 5222 [id number] [id number] Other: Voiding Method Indwelling Catheter Indwelling Catheter - Exam GENERAL EXAM: Revealed a 89-year-old white male, in no distress. HEAD: Normocephalic. EENT: PERRLA, EOMI, anicteric, moist mucous membranes, no neck masses no JVD no stridor. CHEST: No chest wall deformity. LUNGS: Symmetrical chest expansion, good breath sound bilaterally. No rhonchi and no wheezes. CVS: S1 and S2 normal with no audible murmur, regular rhythm. ABDOMEN: No hepatosplenomegaly, normal bowel sounds, no guarding or rigidity. SKIN: No rashes CENTRAL NERVOUS SYSTEM: Alert and oriented 3 in no gross focal deficits. EXTREMITIES: Chronic wounds of the lower extremities. Good pulses bilaterally. - Labs CBC & Chem 7: 06/18/20 05:50 06/18/20 05:50 Labs: Abnormal Lab Results - Last 24 Hours (Table) 06/19/20 06/19/20 06/20/20 Range/Units 17:02 20:30 07:12 POC Glucose (mg/dL) 107 H 190 H 146 H (75-99) mg/dL 06/20/20 Range/Units 11:31 POC Glucose (mg/dL) 130 H (75-99) mg/dL Microbiology - Last 24 Hours (Table) 06/16/20 16:00 Blood Culture - Preliminary Blood No Growth after 72 hours 06/16/20 16:02 Blood Culture - Preliminary Blood No Growth after 72 hours 06/17/20 03:00 Urine Culture - Final Urine,Voided Pseudomonas aeruginosa Assessment and Plan Assessment: Impression: Acute hypoxic respiratory failure secondary to acute code 19 pneumonitis mostly affecting the right lower lobe. Type 2 diabetes. Benign essential hypertension. Chronic indwelling Oro catheter. History of MRSA wound infection of the right knee. Recommendation: Continue the present covid 19 cocktail. Continue present meds, including eliquis Cleared from my perspective to be discharged to [facility] today. Time with Patient: Less than 30
--- NOTE | 2020-06-20 12:51 | P.PN ---
Progress Note - Text Progress Note Date: 06/19/20 Presenting complaint: Shortness of breath History of presenting complaint: This is a 89-year-old patient of Dr. Herb Chamberlain. Chronic stable medical conditions include diabetes, hypertension, prostate disorder,/cancer, chronic Oro catheter. Presented to the ER for shortness of breath. Present for quite a while but getting worse on presentation. She denied any fever chills nausea vomiting. At baseline recently has been using a wheelchair because of weakness. Admitted with a diagnoses of COVID 19 pneumonia. Acute hypoxic respiratory failure. Patient was treated with dexamethasone, eliquis. For suspected secondary bacterial infection was also put on ceftriaxone and Zithromax. The felt to be less likely. Today-feeling much better. Oral intake improving. Slight cough. Working with physical therapy. Will need inpatient rehab Consultation: Dr. Raman from ID Dr. Chauhan in [facility] Review of systems: Was done for constitutional, cardiovascular, GI, pulmonary. relevant finding as above Current medications reviewed in today's electronic records On examination: VITAL SIGNS: 97.8, 63, 16, 117/64, 96% on room air GENERAL APPEARANCE: BMI 31.3, reclining in bed, awake HEENT: Normal external appearance of nose and ear. Oral cavity normal EYES: Pupils equal. Conjunctiva normal. NECK: JVD not raised. Mass not palpable. RESPIRATORY: Respiratory effort normal. Decreased breath sounds CARDIOVASCULAR: First and second sounds normal. No edema. ABDOMEN: Soft. Liver and spleen not palpable. No tenderness. No mass palpable. Oro catheter PSYCHIATRY: Alert and oriented x3. Mood and affect normal. INVESTIGATIONS, reviewed in the clinical context: WBC 3.9 hemoglobin 13.5 platelets 1:30 potassium 4.9 creatinine 1.0 Troponin I 0.06, 0.04, 0.04 CT [place] chest: Negative for PE. Some scarring of the lung basis no suspicious mass. 2-D echocardiogram: EF 50-55%. Moderate concentric LVH EKG tracing personally reviewed by me-sinus rhythm, right bundle-branch block Chest x-ray: Atelectasis questionable infiltrate Assessment and plan: -COVID 19 pneumonia Treated with steroids, continued on eliquis -Acute hypoxic respiratory failure from COVID 19 pneumonia Oxygen supplementation. improved -Acute myocarditis secondary to COVID 19, causing troponin leak Follow on telemetry. 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 Antibiotics can be discontinued up for tomorrow. Patient be going to inpatient rehab
[2020-06-20] MEDS ORDERED: CIPROFLOXACIN HCL 500 MG TAB PO SCH (13:00)
--- NOTE | 2020-06-20 13:01 | P.DS ---
Providers Date of admission: 06/16/20 17:18 Expected date of discharge: 06/20/20 Attending physician: Ramez Brown Consults: 06/16/20 18:51 Consult Physician Routine Consulting Provider: Efraín Chauhan Consult Reason/Comments: copd Do you want consulting provider notified?: Yes Consult Physician Routine Consulting Provider: Bucky Raman Consult Reason/Comments: covid Do you want consulting provider notified?: Yes Primary care physician: [facility] Course: Presenting complaint: Shortness of breath History of presenting complaint: This is a 89-year-old patient of Dr. Herb Chamberlain. Chronic stable medical conditions include diabetes, hypertension, prostate disorder,/cancer, chronic Oro catheter. Presented to the ER for shortness of breath. Present for quite a while but getting worse on presentation. She denied any fever chills nausea vomiting. At baseline recently has been using a wheelchair because of weakness. Admitted with a diagnoses of COVID 19 pneumonia. Acute hypoxic respiratory failure. Patient was treated with dexamethasone, eliquis. For suspected secondary bacterial infection was also put on ceftriaxone and Zithromax. The felt to be less likely. Today-better. Oral intake fair. Minimal cough. Antibiotics and being discontinued. Consultation: Dr. Raman from ID Dr. Chauhan in [facility] from [facility] On examination: VITAL SIGNS: 98.2, 65, 18, 136-76, 96% room air GENERAL APPEARANCE: BMI 31.3, reclining in bed, awake HEENT: Normal external appearance of nose and ear. Oral cavity normal EYES: Pupils equal. Conjunctiva normal. NECK: JVD not raised. Mass not palpable. RESPIRATORY: Respiratory effort normal. Decreased breath sounds CARDIOVASCULAR: First and second sounds normal. No edema. ABDOMEN: Soft. Liver and spleen not palpable. No tenderness. No mass palpable. Oro catheter PSYCHIATRY: Alert and oriented x3. Mood and affect normal. INVESTIGATIONS, reviewed in the clinical context: June 20: Accu-Cheks: 146, 1:30 WBC 3.9 hemoglobin 13.5 platelets 1:30 potassium 4.9 creatinine 1.0 Troponin I 0.06, 0.04, 0.04 CT [place] chest: Negative for PE. Some scarring of the lung basis no suspicious mass. 2-D echocardiogram: EF 50-55%. Moderate concentric LVH EKG tracing personally reviewed by me-sinus rhythm, right bundle-branch block Chest x-ray: Atelectasis questionable infiltrate Assessment and plan: -COVID 19 pneumonia Treated with steroids, continued on eliquis -Acute hypoxic respiratory failure from COVID 19 pneumonia Oxygen supplementation. improved. 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, being followed by urology as an outpatient -Acute medical debility secondary to COVID 19 pneumonia requiring PTOT -Right bundle-branch block, chronic -Chronic gait dysfunction uses a walker at baseline Disposition: F/[place] Patient Condition at Discharge: Fair Plan - Discharge Summary Discharge Rx Participant: No New Discharge Prescriptions: New Zinc Sulfate [Orazinc] 220 mg PO DAILY cap Calcium Carb-Vit D 500Mg-5Mcg [Oscal 500+D 5 Mcg (200 Iu)] 1 each PO BID- W/MEALS tab Albuterol Inhaler [Ventolin Hfa Inhaler] 2 puff INHALATION RT-QID puff Ascorbic Acid [Vitamin C] 1,000 mg PO DAILY tab Cholecalciferol [Vitamin D3 (25 Mcg = 1000 Iu)] 125 mcg PO DAILY tablet Continue metFORMIN HCL [Glucophage] 500 mg PO DAILY PRN PRN Reason: Blood Sugar - High Tamsulosin [Flomax] 0.4 mg PO DAILY Apixaban [Eliquis] 2.5 mg PO BID Albuterol Inhaler [Ventolin Hfa Inhaler] 2 puff INHALATION RT-QID PRN PRN Reason: Shortness Of Breath Ibuprofen [Advil] 200 mg PO Q8HR PRN PRN Reason: Pain Amoxicillin 250 mg PO DAILY HYDROcodone/APAP 5-325MG [[place] 5-325] 1 tab PO TID PRN #9 tab PRN Reason: Pain Discontinued Albuterol Nebulized [Ventolin Nebulized] 2.5 mg INHALATION RT-QID PRN PRN Reason: Shortness Of Breath Discharge Medication List Tamsulosin [Flomax] 0.4 mg PO DAILY 02/01/15 [History] metFORMIN HCL [Glucophage] 500 mg PO DAILY PRN 02/01/15 [History] Albuterol Inhaler [Ventolin Hfa Inhaler] 2 puff INHALATION RT-QID PRN 06/16/20 [History] Amoxicillin 250 mg PO DAILY 06/16/20 [History] Apixaban [Eliquis] 2.5 mg PO BID 06/16/20 [History] Ibuprofen [Advil] 200 mg PO Q8HR PRN 06/16/20 [History] Albuterol Inhaler [Ventolin Hfa Inhaler] 2 puff INHALATION RT-QID puff 06/20/20 [Rx] Ascorbic Acid [Vitamin C] 1,000 mg PO DAILY tab 06/20/20 [Rx] Calcium Carb-Vit D 500Mg-5Mcg [Oscal 500+D 5 Mcg (200 Iu)] 1 each PO BID-W/MEALS tab 06/20/20 [Rx] Cholecalciferol [Vitamin D3 (25 Mcg = 1000 Iu)] 125 mcg PO DAILY tablet 06/20/20 [Rx] HYDROcodone/APAP 5-325MG [[place] 5-325] 1 tab PO TID PRN #9 tab 06/20/20 [Rx] Zinc Sulfate [Orazinc] 220 mg PO DAILY cap 06/20/20 [Rx] Follow up Appointment(s)/Referral(s): Power Chamberlain DO [Primary Care Provider] - 06/21/20 Anthony Cervantes MD [STAFF PHYSICIAN] - 2 Weeks
--- NOTE | 2020-06-20 13:43 | PN ---
PROGRESS NOTE DATE OF SERVICE: 06/20/2020 REASON FOR FOLLOWUP: COVID-19 infection. INTERVAL HISTORY: The patient is currently afebrile. The patient is breathing comfortably on room air. Patient denies having any chest pain or any cough. No abdominal pain or diarrhea. PHYSICAL EXAMINATION: Blood pressure 136/76 with pulse of 65, temperature 98.2. He is 96% on room air. General description is an elderly male lying in bed in no distress RESPIRATORY SYSTEM: Unlabored breathing, is clear to auscultation anteriorly. HEART: S1, S2. Regular rate and rhythm. ABDOMEN: Soft, no tenderness. LABS: No new labs have been obtained today. Urine came back positive with Pseudomonas that is sensitive pathogen. Patient UA was mildly positive. DIAGNOSTIC IMPRESSION AND PLAN: 1. Patient admitted to the hospital with generalized weakness which is multifactorial in this patient who did have a COVID-19 infection, mild illness. Overall improvement to finish therapy with short course of steroids and multivitamin. 2. Patient with positive urine culture with Pseudomonas sensitive pathogen. UA was mildly positive. Will give him a 3-day course of oral Cipro and a close outpatient followup. MMODL / IJN: [id number] /
[2020-06-20 15:18] VITALS: BP 127/78; PULSE 81; RESP 16; TEMP 98.7
--- NOTE | 2020-06-23 08:55 | CDI ---
Documentation Clarification Form Date: 06/23/2020 08:36:30 AM From: Thania LopezDasAMELIA ramos, CCDS Admit Date: 06/16/2020 05:18:00 PM Patient Name: Veronica Francis Visit Number: [id number] Discharge Date: 06/20/2020 04:47:00 PM ATTENTION: The Clinical Documentation Specialists (CDI) and [facility] Coding Staff appreciate your assistance in clarifying documentation. Please respond to the clarification below the line at the bottom and electronically sign. The CDI & [facility] Coding staff will review the response and follow-up if needed. Please note: Queries are made part of the Legal Health Record. If you have any questions, please contact the author of this message via ITS. Dr. Ramez Brown: Per the 06/16 H/P Assessment and subsequent Progress Notes on 06/17 & 06/18: Possible Sepsis with elevated lactic acid, POA. Sepsis is not further documented. Per the 06/18 Infectious Disease Progress Note: Gram-negative UTI is documented. History/Risk Factors per the 06/16 H/P History of Present Illness: COPD, Asthma, DM, Hypertension, Prostate disorder, history of MRSA, has indwelling Oro Catheter. Clinical Indicators: Presented to the ED 06/16 via EMS with shortness of breath. No fever, chills, nausea or vomiting. 06/16 VS: T 98.1 - 102.1, P 81 - 123, R 26 (SOB, cough, retracting), BP 102/72, PO 91 Aerosol mist - 2Lnc, BMI 31.3 06/16 LAB: WBC 3.5, Pl Ct 146, Lymph 0.7, D Dimer 1.81, Na 136, Gluc 155, Cr Kinase 277, Troponin 0.047, 0.060; Procalcitonin 0.15. 06/17 UA: Trace Protein, Mod Blood, Small Esterase, RBC 6. 4 COVID POSITIVE RAD: 06/16 CXR: Borderline heart size. There is some patchy opacity posterior mid lung on the lateral view that could represent atelectasis or developing infiltrate. Treatment 06/16: INH Duoneb, I fluid 1,000 mls @ 999 mls/hr q1H, IV Solumedrol 125 mg x1, IV Azithromycin 250 mls @ 250 mls/hr Daily, IV Rocephin 50 mls @ 100 mls/hr q24H, INH Ventolin QID 06/17 Cardiology Consult: COVID 19 pneumonia, Elevated Troponins likely secondary to COVID. 06/17 Pulmonary Consult: Acute hypoxic respiratory failure secondary to acute COVID 19 pneumonitis as pneumonia more so on the right lower lobe. 06/17 Infectious Disease: Increasing SOB, fever and leukopenia, elevated D-dimer, normal liver enzymes. Unfortunately, inflammatory marker has not been checked with concern for possible pneumonia related to COVID vs secondary bacterial pneumonia as the patient seemed to have clinically responded to the antibiotic therapy started yesterday and it is not very clear when exactly his symptoms started. In your professional opinion, please clarify if these findings signify one of the following conditions: [ ] Sepsis POA, please specify cause if known: [ ] Sepsis, Not POA [ ] Sepsis ruled out [ ] Severe Sepsis with organ failure [ ] Other, please specify [ ] Unable to determine (Template Last Reviewed: April 2020) Sepsis, from COVID 19 pneumonia, POA MTDD
== END 2020-06-20 16:47 | DRG 871 ==
LOC: EC 14:56 → 4SSUR 17:18 → 1SOBS 06-17 01:22 → 6NMEDSUR 06-17 15:42
PROVIDERS: ADMIT Hospitalist; ATTEND Hospitalist
DX: A41.89 Other specified sepsis (principal); U07.1 COVID-19; J12.82 Pneumonia due to coronavirus disease 2019; J80 Acute respiratory distress syndrome; I40.9 Acute myocarditis, unspecified; N39.0 Urinary tract infection, site not specified; T83.518A Infection and inflammatory reaction due to other urinary catheter, initial encounter; J44.0 Chronic obstructive pulmonary disease with (acute) lower respiratory infection; J44.1 Chronic obstructive pulmonary disease with (acute) exacerbation; E87.1 Hypo-osmolality and hyponatremia; N13.8 Other obstructive and reflux uropathy; E87.2 Acidosis; I10 Essential (primary) hypertension; E86.0 Dehydration; I45.10 Unspecified right bundle-branch block; R53.81 Other malaise; R26.89 Other abnormalities of gait and mobility; D69.6 Thrombocytopenia, unspecified; M19.90 Unspecified osteoarthritis, unspecified site; E66.9 Obesity, unspecified; Z96.641 Presence of right artificial hip joint; E83.51 Hypocalcemia; E11.65 Type 2 diabetes mellitus with hyperglycemia; D72.819 Decreased white blood cell count, unspecified; I08.3 Combined rheumatic disorders of mitral, aortic and tricuspid valves; K59.00 Constipation, unspecified; Y73.8 Miscellaneous gastroenterology and urology devices associated with adverse incidents, not elsewhere classified; Z88.5 Allergy status to narcotic agent; Z79.01 Long term (current) use of anticoagulants; Z79.84 Long term (current) use of oral hypoglycemic drugs; Z79.899 Other long term (current) drug therapy; Z86.14 Personal history of Methicillin resistant Staphylococcus aureus infection; Z86.19 Personal history of other infectious and parasitic diseases; Z80.3 Family history of malignant neoplasm of breast; Z87.891 Personal history of nicotine dependence; Z68.31 Body mass index [BMI] 31.0-31.9, adult; Z85.46 Personal history of malignant neoplasm of prostate
CPT/HCPCS: 36415; 71045; 71046; 71275; 80048; 80053; 81001; 82550; 83605; 83735; 83880; 84145; 84484; 85025; 85379; 85610; 85730; 87040; 87077; 87086; 87186; 87635; 93005; 93306; 94640; 94760; 99291

== ENCOUNTER 2021-04-05 22:16 | Observation (INO) | payer MEDICARE ==
[2021-04-05] MEDS ORDERED: SODIUM CHLORIDE 0.9% 1,000 ML IV STA (23:06)
--- NOTE | 2021-04-05 23:07 | ED ---
Male Urogenital HPI - General Chief complaint: Urogenital Stated complaint: Blood in Catheter Time Seen by Provider: 04/05/21 22:36 Source: patient, EMS Mode of arrival: EMS Limitations: no limitations - Related Data Home Medications Medication Instructions Recorded Confirmed Tamsulosin [Flomax] 0.4 mg PO DAILY 02/01/15 06/16/20 metFORMIN HCL [Glucophage] 500 mg PO DAILY PRN 02/01/15 06/16/20 Albuterol Inhaler [Ventolin Hfa 2 puff INHALATION RT-QID PRN 06/16/20 06/16/20 Inhaler] Amoxicillin 250 mg PO DAILY 06/16/20 06/16/20 Apixaban [Eliquis] 2.5 mg PO BID 06/16/20 06/16/20 Ibuprofen [Advil] 200 mg PO Q8HR PRN 06/16/20 06/16/20 Previous Rx's Medication Instructions Recorded Albuterol Inhaler [Ventolin Hfa 2 puff INHALATION RT-QID puff 06/20/20 Inhaler] Ascorbic Acid [Vitamin C] 1,000 mg PO DAILY tab 06/20/20 Calcium Carb-Vit D 500Mg-5Mcg 1 each PO BID-W/MEALS tab 06/20/20 [Oscal 500+D 5 Mcg (200 Iu)] Cholecalciferol [Vitamin D3 (25 125 mcg PO DAILY tablet 06/20/20 Mcg = 1000 Iu)] HYDROcodone/APAP 5-325MG [[place] 1 tab PO TID PRN #9 tab 06/20/20 5-325] Zinc Sulfate [Orazinc] 220 mg PO DAILY cap 06/20/20 Allergies Allergy/AdvReac Type Severity Reaction Status Date / Time hydrocodone bitartrate AdvReac Intermediate Hallucinati Verified 06/16/20 16:33 [From Vicodin] ons tramadol HCl [From Ultram] AdvReac Intermediate Confusion Verified 06/16/20 16:33 Review of Systems ROS Statement: Those systems with pertinent positive or pertinent negative responses have been documented in the HPI. ROS Other: All systems not noted in ROS Statement are negative. 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; MRSA-RIGHT KNEE Past Surgical History: Joint Replacement, Orthopedic Surgery, Prostate Surgery Additional Past Surgical History / Comment(s): rt hip replacement, rt femur repl aced with titanium sonia Past Anesthesia/Blood Transfusion Reactions: No Reported Reaction Past Psychological History: No Psychological Hx Reported Smoking Status: Former smoker Past Alcohol Use History: Occasional Past Drug Use History: None Reported - Past Family History Mother Family Medical History: Cancer Additional Family Medical History / Comment(s): breast cancer General Exam Limitations: no limitations Course Vital Signs 04/05/21 04/06/21 22:23 00:12 Temperature 97.8 F Pulse Rate 95 92 Respiratory 18 17 Rate Blood Pressure 137/71 142/98 O2 Sat by Pulse 98 98 Oximetry Medical Decision Making - Lab Data Result diagrams: 04/06/21 00:01 04/06/21 00:01 Lab Results 04/06/21 04/06/21 04/06/21 Range/Units 00:01 00:01 00:01 WBC 9.2 (3.8-10.6) k/uL RBC 5.33 (4.30-5.90) m/uL Hgb 15.9 (13.0-17.5) gm/dL Hct 49.4 (39.0-53.0) % MCV 92.7 (80.0-100.0) fL MCH 29.9 (25.0-35.0) pg MCHC 32.2 (31.0-37.0) g/dL RDW 13.7 (11.5-15.5) % Plt Count 227 (150-450) k/uL MPV 6.7 Neutrophils % 74 % Lymphocytes % 15 % Monocytes % 5 % Eosinophils % 3 % Basophils % 1 % Neutrophils # 6.9 (1.3-7.7) k/uL Lymphocytes # 1.4 (1.0-4.8) k/uL Monocytes # 0.5 (0-1.0) k/uL Eosinophils # 0.3 (0-0.7) k/uL Basophils # 0.1 (0-0.2) k/uL PT 10.4 (9.0-12.0) sec INR 1.0 (<1.2) APTT 23.9 (22.0-30.0) sec Sodium (137-145) mmol/L Potassium (3.5-5.1) mmol/L Chloride (98-107) mmol/L Carbon Dioxide (22-30) mmol/L Anion Gap mmol/L BUN (9-20) mg/dL Creatinine (0.66-1.25) mg/dL Est GFR (CKD-EPI)AfAm (>60 ml/min/1.73 sqM) Est GFR (CKD-EPI)NonAf (>60 ml/min/1.73 sqM) Glucose (74-99) mg/dL Calcium (8.4-10.2) mg/dL Total Bilirubin (0.2-1.3) mg/dL AST (17-59) U/L ALT (4-49) U/L Alkaline Phosphatase (38-126) U/L Total Protein (6.3-8.2) g/dL Albumin (3.5-5.0) g/dL Amylase (30-110) U/L Lipase (23-300) U/L Urine Color Red Urine Appearance Bloody (Clear) Urine RBC >182 H (0-5) /hpf Urine WBC 43 H (0-5) /hpf Urine Bacteria Rare H (None) /hpf Urine Yeast (Budding) Many H (None) /hpf 04/06/21 Range/Units 00:01 WBC (3.8-10.6) k/uL RBC (4.30-5.90) m/uL Hgb (13.0-17.5) gm/dL Hct (39.0-53.0) % MCV (80.0-100.0) fL MCH (25.0-35.0) pg MCHC (31.0-37.0) g/dL RDW (11.5-15.5) % Plt Count (150-450) k/uL MPV Neutrophils % % Lymphocytes % % Monocytes % % Eosinophils % % Basophils % % Neutrophils # (1.3-7.7) k/uL Lymphocytes # (1.0-4.8) k/uL Monocytes # (0-1.0) k/uL Eosinophils # (0-0.7) k/uL Basophils # (0-0.2) k/uL PT (9.0-12.0) sec INR (<1.2) APTT (22.0-30.0) sec Sodium 135 L (137-145) mmol/L Potassium 4.7 (3.5-5.1) mmol/L Chloride 101 (98-107) mmol/L Carbon Dioxide 25 (22-30) mmol/L Anion Gap 9 mmol/L BUN 27 H (9-20) mg/dL Creatinine 1.44 H (0.66-1.25) mg/dL Est GFR (CKD-EPI)AfAm 49 (>60 ml/min/1.73 sqM) Est GFR (CKD-EPI)NonAf 43 (>60 ml/min/1.73 sqM) Glucose 158 H (74-99) mg/dL Calcium 9.2 (8.4-10.2) mg/dL Total Bilirubin 0.9 (0.2-1.3) mg/dL AST 26 (17-59) U/L ALT 15 (4-49) U/L Alkaline Phosphatase 94 (38-126) U/L Total Protein 7.2 (6.3-8.2) g/dL Albumin 4.1 (3.5-5.0) g/dL Amylase 73 (30-110) U/L Lipase 181 (23-300) U/L Urine Color Urine Appearance (Clear) Urine RBC (0-5) /hpf Urine WBC (0-5) /hpf Urine Bacteria (None) /hpf Urine Yeast (Budding) (None) /hpf Disposition Clinical Impression: Malfunction of Oro catheter, Hematuria, UTI (urinary tract infection) Narrative: Urinary Retention ? Disposition: ADMITTED IP TO THIS [facility] Condition: Good Is patient prescribed a controlled substance at d/c from ED?: No Referrals: Chava García MD [Primary Care Provider] - 1-2 days
[2021-04-06 00:09] LABS: Basophils # (A) 0.1 k/uL (0-0.2); Basophils % (A) 1 %; Eosinophils # (A) 0.3 k/uL (0-0.7); Eosinophils % (A) 3 %; HCT 49.4 % (39.0-53.0); HGB 15.9 gm/dL (13.0-17.5); Lymphocytes # (A) 1.4 k/uL (1.0-4.8); Lymphocytes % (A) 15 %; MCH 29.9 pg (25.0-35.0); MCHC 32.2 g/dL (31.0-37.0); MCV 92.7 fL (80.0-100.0); Mean Platelet Volume 6.7; Monocytes # (A) 0.5 k/uL (0-1.0); Monocytes % (A) 5 %; Neutrophils # (A) 6.9 k/uL (1.3-7.7); Neutrophils % (A) 74 %; Platelet Count 227 k/uL (150-450); RBC 5.33 m/uL (4.30-5.90); RDW 13.7 % (11.5-15.5); WBC 9.2 k/uL (3.8-10.6)
[2021-04-06 00:19] LABS: Albumin 4.1 g/dL (3.5-5.0); Calcium 9.2 mg/dL (8.4-10.2); Partial Thromboplastin Time 23.9 sec (22.0-30.0); Potassium 4.7 mmol/L (3.5-5.1); Prothrombin Time 10.4 sec (9.0-12.0); Total Bilirubin 0.9 mg/dL (0.2-1.3); Total Protein 7.2 g/dL (6.3-8.2)
[2021-04-06 00:25] LABS: Bacteria,Urine Rare /hpf; Budding Yeast,Urine Many /hpf
[2021-04-06 00:26] LABS: Appearance,Urine Bloody (Clear)
[2021-04-06 00:27] LABS: Color,Urine Red; WBC,Urine 43 /hpf (0-5)
[2021-04-06 00:28] LABS: RBC,Urine >182 /hpf (0-5)
[2021-04-06] MEDS ORDERED: NALOXONE 0.4 MG/ML 1 ML VIAL IV PRN (01:41)
[2021-04-06] MEDS ORDERED: LORazepam 2 MG/ML INJ IV PRN (01:41)
[2021-04-06] MEDS ORDERED: ONDANSETRON 4 MG/2 ML VIAL IVP PRN (01:41)
[2021-04-06] MEDS ORDERED: MORPHINE SULFATE 4 MG/ML SYRINGE IV PRN (01:41)
--- NOTE | 2021-04-06 01:48 | ED ---
Male Urogenital HPI - General Chief complaint: Urogenital Stated complaint: Blood in Catheter Time Seen by Provider: 04/05/21 22:36 Source: patient, EMS, RN notes reviewed, old records reviewed Mode of arrival: EMS Limitations: no limitations - History of Present Illness Initial comments: This is an 89-year-old male DF for evaluation patient presents today for evaluation. Patient is insulin for 2 years he is unsure why. Patient's Silverio is currently well. No abdominal pain. No fevers MD Complaint: dysuria (hematuria), other (indwelling silverio) -: hour(s) Location: penis Radiation: none Severity: moderate Severity scale (1-10): 7 Consistency: constant Improves with: none Worsens with: urination Reports: urinary retention, blood in urine, dysuria - Related Data Home Medications Medication Instructions Recorded Confirmed Tamsulosin [Flomax] 0.4 mg PO DAILY 02/01/15 06/16/20 metFORMIN HCL [Glucophage] 500 mg PO DAILY PRN 02/01/15 06/16/20 Albuterol Inhaler [Ventolin Hfa 2 puff INHALATION RT-QID PRN 06/16/20 06/16/20 Inhaler] Amoxicillin 250 mg PO DAILY 06/16/20 06/16/20 Apixaban [Eliquis] 2.5 mg PO BID 06/16/20 06/16/20 Ibuprofen [Advil] 200 mg PO Q8HR PRN 06/16/20 06/16/20 Previous Rx's Medication Instructions Recorded Albuterol Inhaler [Ventolin Hfa 2 puff INHALATION RT-QID puff 06/20/20 Inhaler] Ascorbic Acid [Vitamin C] 1,000 mg PO DAILY tab 06/20/20 Calcium Carb-Vit D 500Mg-5Mcg 1 each PO BID-W/MEALS tab 06/20/20 [Oscal 500+D 5 Mcg (200 Iu)] Cholecalciferol [Vitamin D3 (25 125 mcg PO DAILY tablet 06/20/20 Mcg = 1000 Iu)] HYDROcodone/APAP 5-325MG [[place] 1 tab PO TID PRN #9 tab 06/20/20 5-325] Zinc Sulfate [Orazinc] 220 mg PO DAILY cap 06/20/20 Allergies Allergy/AdvReac Type Severity Reaction Status Date / Time hydrocodone bitartrate AdvReac Intermediate Hallucinati Verified 06/16/20 16:33 [From Vicodin] ons tramadol HCl [From Ultram] AdvReac Intermediate Confusion Verified 06/16/20 16:33 Review of Systems ROS Statement: Those systems with pertinent positive or pertinent negative responses have been documented in the HPI. ROS Other: All systems not noted in ROS Statement are negative. 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; MRSA-RIGHT KNEE Past Surgical History: Joint Replacement, Orthopedic Surgery, Prostate Surgery Additional Past Surgical History / Comment(s): rt hip replacement, rt femur replaced with titanium sonia Past Anesthesia/Blood Transfusion Reactions: No Reported Reaction Past Psychological History: No Psychological Hx Reported Smoking Status: Former smoker Past Alcohol Use History: Occasional Past Drug Use History: None Reported - Past Family History Mother Family Medical History: Cancer Additional Family Medical History / Comment(s): breast cancer General Exam Limitations: no limitations General appearance: alert, in no apparent distress Head exam: Present: atraumatic, normocephalic, normal inspection Eye exam: Present: normal appearance, PERRL, EOMI. Absent: scleral icterus, conjunctival injection, periorbital swelling ENT exam: Present: normal exam, mucous membranes moist Neck exam: Present: normal inspection. Absent: tenderness, meningismus, lymphadenopathy Respiratory exam: Present: normal lung sounds bilaterally. Absent: respiratory distress, wheezes, rales, rhonchi, stridor Cardiovascular Exam: Present: regular rate, normal rhythm, normal heart sounds. Absent: systolic murmur, diastolic murmur, rubs, gallop, clicks GI/Abdominal exam: Present: soft, normal bowel sounds. Absent: distended, tenderness, guarding, rebound, rigid Extremities exam: Present: normal inspection, full ROM, normal capillary refill. Absent: tenderness, pedal edema, joint swelling, calf tenderness Back exam: Present: normal inspection Neurological exam: Present: alert, oriented X3, CN II-XII intact Psychiatric exam: Present: normal affect, normal mood Skin exam: Present: warm, dry, intact, normal color. Absent: rash Course Vital Signs 04/05/21 04/06/21 22:23 00:12 Temperature 97.8 F Pulse Rate 95 92 Respiratory 18 17 Rate Blood Pressure 137/71 142/98 O2 Sat by Pulse 98 98 Oximetry - Reevaluation(s) Reevaluation #1: 04/06/21 01:46 Medical record is reviewed Reevaluation #2: 04/06/21 01:46 Patient no significant change in symptoms Reevaluation #3: 04/06/21 01:46 Patient informed results questions answered - Consultations Consultation #1: kylee Brown re admission he is agreeable Medical Decision Making - Medical Decision Making 89 male to the emergency department for evaluation with significant hematuria, patient hasn't patient indwelling Silverio currently. Patient will be admitted for urology consultation and treatment antibiotics and awaiting cultures and urine - Lab Data Result diagrams: 04/06/21 00:01 04/06/21 00:01 Lab Results 04/06/21 04/06/21 04/06/21 Range/Units 00:01 00:01 00:01 WBC 9.2 (3.8-10.6) k/uL RBC 5.33 (4.30-5.90) m/uL Hgb 15.9 (13.0-17.5) gm/dL Hct 49.4 (39.0-53.0) % MCV 92.7 (80.0-100.0) fL MCH 29.9 (25.0-35.0) pg MCHC 32.2 (31.0-37.0) g/dL RDW 13.7 (11.5-15.5) % Plt Count 227 (150-450) k/uL MPV 6.7 Neutrophils % 74 % Lymphocytes % 15 % Monocytes % 5 % Eosinophils % 3 % Basophils % 1 % Neutrophils # 6.9 (1.3-7.7) k/uL Lymphocytes # 1.4 (1.0-4.8) k/uL Monocytes # 0.5 (0-1.0) k/uL Eosinophils # 0.3 (0-0.7) k/uL Basophils # 0.1 (0-0.2) k/uL PT 10.4 (9.0-12.0) sec INR 1.0 (<1.2) APTT 23.9 (22.0-30.0) sec Sodium (137-145) mmol/L Potassium (3.5-5.1) mmol/L Chloride (98-107) mmol/L Carbon Dioxide (22-30) mmol/L Anion Gap mmol/L BUN (9-20) mg/dL Creatinine (0.66-1.25) mg/dL Est GFR (CKD-EPI)AfAm (>60 ml/min/1.73 sqM) Est GFR (CKD-EPI)NonAf (>60 ml/min/1.73 sqM) Glucose (74-99) mg/dL Calcium (8.4-10.2) mg/dL Total Bilirubin (0.2-1.3) mg/dL AST (17-59) U/L ALT (4-49) U/L Alkaline Phosphatase (38-126) U/L Total Protein (6.3-8.2) g/dL Albumin (3.5-5.0) g/dL Amylase (30-110) U/L Lipase (23-300) U/L Urine Color Red Urine Appearance Bloody (Clear) Urine RBC >182 H (0-5) /hpf Urine WBC 43 H (0-5) /hpf Urine Bacteria Rare H (None) /hpf Urine Yeast (Budding) Many H (None) /hpf 04/06/21 Range/Units 00:01 WBC (3.8-10.6) k/uL RBC (4.30-5.90) m/uL Hgb (13.0-17.5) gm/dL Hct (39.0-53.0) % MCV (80.0-100.0) fL MCH (25.0-35.0) pg MCHC (31.0-37.0) g/dL RDW (11.5-15.5) % Plt Count (150-450) k/uL MPV Neutrophils % % Lymphocytes % % Monocytes % % Eosinophils % % Basophils % % Neutrophils # (1.3-7.7) k/uL Lymphocytes # (1.0-4.8) k/uL Monocytes # (0-1.0) k/uL Eosinophils # (0-0.7) k/uL Basophils # (0-0.2) k/uL PT (9.0-12.0) sec INR (<1.2) APTT (22.0-30.0) sec Sodium 135 L (137-145) mmol/L Potassium 4.7 (3.5-5.1) mmol/L Chloride 101 (98-107) mmol/L Carbon Dioxide 25 (22-30) mmol/L Anion Gap 9 mmol/L BUN 27 H (9-20) mg/dL Creatinine 1.44 H (0.66-1.25) mg/dL Est GFR (CKD-EPI)AfAm 49 (>60 ml/min/1.73 sqM) Est GFR (CKD-EPI)NonAf 43 (>60 ml/min/1.73 sqM) Glucose 158 H (74-99) mg/dL Calcium 9.2 (8.4-10.2) mg/dL Total Bilirubin 0.9 (0.2-1.3) mg/dL AST 26 (17-59) U/L ALT 15 (4-49) U/L Alkaline Phosphatase 94 (38-126) U/L Total Protein 7.2 (6.3-8.2) g/dL Albumin 4.1 (3.5-5.0) g/dL Amylase 73 (30-110) U/L Lipase 181 (23-300) U/L Urine Color Urine Appearance (Clear) Urine RBC (0-5) /hpf Urine WBC (0-5) /hpf Urine Bacteria (None) /hpf Urine Yeast (Budding) (None) /hpf Disposition Clinical Impression: Malfunction of Silverio catheter, Hematuria, UTI (urinary tract infection) Disposition: ADMITTED IP TO THIS HOSP Condition: Good Referrals: Chava García MD [Primary Care Provider] - 1-2 days
[2021-04-06] MEDS: SODIUM CHLORIDE 0.9% 1,000 ML IV SCH ×3 (03:32→20:37)
[2021-04-06 06:57] LABS: Glucose,Whole Blood 117 mg/dL (75-99)
--- NOTE | 2021-04-06 10:37 | US ---
EXAMINATION TYPE: US kidneys/renal and bladder DATE OF EXAM: 04/06/2021 COMPARISON: CT November 20, 2018 CLINICAL HISTORY: hematuria. gross hematuria EXAM MEASUREMENTS: Right Kidney: 9.6 x 5.0 x 4.2 cm Left Kidney: 11.4 x 6.2 x 4.6 cm Right Kidney: dilated renal pelvis Left Kidney: complex solid vascular area upper/mid = 5.2 x 5.4 x 3.9cm Bladder: unable to visualize Oro Catheter Bilateral Jets seen: no The urinary bladder is not greatly distended. No suspicious intraluminal mass. Bilateral ureteral je ts are not seen. Cortical thinning bilaterally. Right kidney shows mild to moderate pyelocaliectasis. Left kidney show s mid pole partially exophytic 5.4 cm slightly hyperechoic solid hypervascular mass which correlates with prior CT. No left-sided hydronephrosis. IMPRESSION: Persistent suspicious 5.2 cm partially exophytic solid hypervascular mass mid pole of the left kidney worrisome for renal cell carcinoma. New mild/moderate right-sided hydronephrosis is thou ght present on this study.
[2021-04-06] MEDS ORDERED: ALBUTEROL NEBULIZED 2.5 MG/3 ML INHALATION PRN (11:03)
[2021-04-06 11:19] LABS: Glucose,Whole Blood 125 mg/dL (75-99)
[2021-04-06] MEDS: TAMSULOSIN 0.4 MG CAP.ER.24H PO SCH (12:20)
--- NOTE | 2021-04-06 12:20 | P.GSCN ---
History of Present Illness Consult date: 04/06/21 Reason for Consult: Gross Hematuria History of present illness: 89-year-old male with history of urinary retention, currently being managed by Oro catheter. Of note he has history of prostate cancer treated with radiation in the past. He lost saw Dr. Duckworth in 2019, a Oro catheter was removed at that time for retention, but the patient has not followed up since that time. He is unsure why he has a Oro catheter but indicated since 2019 he's had a chronic Oro catheter. He presented to the hospital with gross hematuria, hematuria occurred after attempted catheter change. On evaluation this morning the urine is red, the catheter is draining with minimal clots. Of note he had a CT scan done in 2019 that showed evidence of a 4.5 cm left renal mass. Ultrasound today showed evidence of 5.9 left renal mass, and evidence of right-sided hydronephrosis. 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 VRE; 09/13/19 MRSA MDRO Source:: VRE-Right Knee; MRSA-RIGHT KNEE Past Surgical History: Joint Replacement, Orthopedic Surgery, Prostate Surgery Additional Past Surgical History / Comment(s): rt hip replacement, rt femur replaced with titanium sonia Past Anesthesia/Blood Transfusion Reactions: No Reported Reaction Past Psychological History: No Psychological Hx Reported Smoking Status: Former smoker Past Alcohol Use History: Occasional Past Drug Use History: None Reported - Past Family History Mother Family Medical History: Cancer Additional Family Medical History / Comment(s): breast cancer Medications and Allergies Home Medications Medication Instructions Recorded Confirmed Type Tamsulosin [Flomax] 0.4 mg PO DAILY 02/01/15 04/06/21 History Albuterol Inhaler [Ventolin Hfa 2 puff INHALATION RT-QID PRN 06/16/20 04/06/21 History Inhaler] Amoxicillin 250 mg PO DAILY 06/16/20 04/06/21 History Apixaban [Eliquis] 2.5 mg PO BID 06/16/20 04/06/21 History Allergies Allergy/AdvReac Type Severity Reaction Status Date / Time hydrocodone bitartrate AdvReac Intermediate Hallucinati Verified 04/06/21 10:02 [From Vicodin] ons tramadol HCl [From Ultram] AdvReac Intermediate Confusion Verified 04/06/21 10:02 Surgical - Exam Vital Signs Temp Pulse Resp BP Pulse Ox 97.8 F 95 18 137/71 98 04/05/21 22:23 04/05/21 22:23 04/05/21 22:23 04/05/21 22:23 04/05/21 22:23 - General no distress, no pain - Eyes normal ocular movement, no pale - ENT normal nares, normal mucosa - Respiratory normal expansion, normal respiratory effort - Abdomen Abdomen: soft, non tender - Genitourinary normal penis with no external lesions - Psychiatric oriented to time, oriented to person, oriented to place Results - Labs 04/06/21 00:01 04/06/21 00:01 Abnormal Lab Results - Last 24 Hours (Table) 04/06/21 04/06/21 04/06/21 Range/Units 00:01 00:01 06:56 Sodium 135 L (137-145) mmol/L BUN 27 H (9-20) mg/dL Creatinine 1.44 H (0.66-1.25) mg/dL Glucose 158 H (74-99) mg/dL POC Glucose (mg/dL) 117 H (75-99) mg/dL Urine RBC >182 H (0-5) /hpf Urine WBC 43 H (0-5) /hpf Urine Bacteria Rare H (None) /hpf Urine Yeast (Budding) Many H (None) /hpf Microbiology - Last 24 Hours (Table) 04/06/21 00:01 Urine Culture - Preliminary Urine,Voided Diabetes panel 04/06/21 Range/Units 00:01 Sodium 135 L (137-145) mmol/L Potassium 4.7 (3.5-5.1) mmol/L Chloride 101 (98-107) mmol/L Carbon Dioxide 25 (22-30) mmol/L BUN 27 H (9-20) mg/dL Creatinine 1.44 H (0.66-1.25) mg/dL Glucose 158 H (74-99) mg/dL Calcium 9.2 (8.4-10.2) mg/dL AST 26 (17-59) U/L ALT 15 (4-49) U/L Alkaline Phosphatase 94 (38-126) U/L Total Protein 7.2 (6.3-8.2) g/dL Albumin 4.1 (3.5-5.0) g/dL Calcium panel 04/06/21 Range/Units 00:01 Calcium 9.2 (8.4-10.2) mg/dL Albumin 4.1 (3.5-5.0) g/dL Pituitary panel 04/06/21 Range/Units 00:01 Sodium 135 L (137-145) mmol/L Potassium 4.7 (3.5-5.1) mmol/L Chloride 101 (98-107) mmol/L Carbon Dioxide 25 (22-30) mmol/L BUN 27 H (9-20) mg/dL Creatinine 1.44 H (0.66-1.25) mg/dL Glucose 158 H (74-99) mg/dL Calcium 9.2 (8.4-10.2) mg/dL Adrenal panel 04/06/21 Range/Units 00:01 Sodium 135 L (137-145) mmol/L Potassium 4.7 (3.5-5.1) mmol/L Chloride 101 (98-107) mmol/L Carbon Dioxide 25 (22-30) mmol/L BUN 27 H (9-20) mg/dL Creatinine 1.44 H (0.66-1.25) mg/dL Glucose 158 H (74-99) mg/dL Calcium 9.2 (8.4-10.2) mg/dL Total Bilirubin 0.9 (0.2-1.3) mg/dL AST 26 (17-59) U/L ALT 15 (4-49) U/L Alkaline Phosphatase 94 (38-126) U/L Total Protein 7.2 (6.3-8.2) g/dL Albumin 4.1 (3.5-5.0) g/dL Assessment and Plan Assessment: 89-year-old male with history of chronic retention, history of prostate cancer treated and radiation in the past. He's been Oro dependent since 2019, but does not appear to have undergone any workup for his retention. He'll also saw Dr Duckworth in 2019, of note the Oro was removed during that office visit. History of left renal mass, on renal ultrasound it appears that the mass has progressed in size from 4.5 to 5.9 cm, also evidence of new right-sided hydronephrosis Creatinine on presentation is 1.4, baseline is 1 -Repeat BMP, if returns to baseline we'll obtain a CT urogram to better evaluate the size of the renal mass and the right-sided hydronephrosis -gross hematuria most likely secondary to traumatic Oro exchange - Irrigate Oro when necessary
--- NOTE | 2021-04-06 15:57 | CT ---
EXAMINATION TYPE: CT urogram wo/w con DATE OF EXAM: 04/06/2021 COMPARISON: Renal ultrasound from earlier today HISTORY: gross hematuria, left renal mass CT DLP: 3552.6 mGycm, Automated Exposure Control for Dose Reduction was Utilized. CONTRAST: CT scan of the abdomen and pelvis is performed without oral and without and with IV Contrast, patient injected with 100 mL of Isovue 300. Urogram protocol with 3-D reconstruction images created on [employer] workstation and reviewed. FINDINGS: KUB: LUNG BASES: No significant abnormality is appreciated. LIVER/GB: No significant abnormality is appreciated. PANCREAS: Mild generalized fat replaced atrophy. SPLEEN: No significant abnormality is seen. ADRENALS: No significant abnormality is seen. KIDNEYS: Noncontrast images show some cortical thinning bilaterally. No renal calculi are seen bilate rally. Postcontrast images show symmetric cortical medullary uptake and excretion without hydronephro sis seen bilaterally. Corresponding to ultrasound there is a partially exophytic heterogeneous enhanc ing solid mass mid pole level left kidney measuring 6.4 x 4.2 cm axial image 29 consistent with neopl asm given symptoms or hematuria. Satisfactory opacification of bilateral ureters without obstructing mass or calculus. Focus of nondependent air in bladder is noted, correlate for recent Oro catheteri zation otherwise other etiologies need to be considered. BOWEL: Scattered colonic diverticula greatest in the sigmoid colon. PROSTATE/SEMINAL VESICLES: Central calcifications and normal size prostate. LYMPH NODES: There is some unusual tortuous vessel left periaortic region axial image 28 series 301 w hich has vascular or vessel connection on this image mimicking left-sided periaortic adenopathy, susp ect focal aneurysm or vascular malformation. There is however suspicious lesion of similar density wh ich adenopathy is not excluded anterior to this axial image 28. OSSEOUS STRUCTURES: Extensive surgical change in the right proximal femur causing streak artifact li miting evaluation of pelvic structures. Advanced degenerative change left hip joint with diminished s ize and deformity to the left femoral head. Left-sided acetabular protrusio is noted. There is surrou nding soft tissue density greatest posteriorly with sclerosis and deformity of the acetabulum greates t along the posterior wall where there is some chronic bony destruction. There is multilevel moderate to severe spurring and disc space narrowing throughout the thoracolumbar spine. OTHER: Mild/moderate calcified plaque of the aorta extends into branch vessels. IMPRESSION: Confirmation of solid enhancing partially exophytic 6.4 cm left renal mass consistent wit h renal cell carcinoma.
[2021-04-06 16:18] LABS: Glucose,Whole Blood 177 mg/dL (75-99)
--- NOTE | 2021-04-06 18:05 | P.HPIM ---
History of Present Illness H&P Date: 04/06/21 Chief Complaint: Hematuria through Oro History of presenting complaint: This is a 89-year-old patient of Dr. García, visiting physicians. Chronic stable medical conditions include diabetes, hypertension, prostate disorder,/cancer, chronic Oro catheter. He has a Oro catheter since 2019 and is followed with Dr. Sanders from neurology for the same. He did receive radiation treatment for his cancer the past. At her baseline uses a wheelchair. catheter changed every month. It was changed yesterday. Patient presented with significant bleeding/hematuria in the Oro for last 2 days. Some clearing this morning. Urology was consulted. Denies any fever and chills. Does have some discomfort in the pelvic area. No change in his bowel pattern. Review of systems: GEN.: Tired EYES: None HEENT: None NECK: None RESPIRATORY: None CARDIOVASCULAR: None GASTROINTESTINAL: None GENITOURINARY: As above MUSCULOSKELETAL: None LYMPHATICS: None HEMATOLOGICAL: None PSYCHIATRY: None NEUROLOGICAL: Uses a wheelchair Past medical history to include: COVID 19 pneumonia, diabetes, chronic Oro catheter for 2 years, prostate cancer treated with radiation, right bundle-branch block, Social history: Did smoke in the past. Occasional alcohol. Lives with his . Family history: Breast cancer Physical examination: VITAL SIGNS: 97.6, 79, 18, 105/73, 96% room air GENERAL: BMI 28, laying in bed, awake not in distress. EYES: Pupils equal. Conjunctiva normal. HEENT: External appearance of nose and ears normal, oral cavity grossly normal. NECK: JVD not raised; masses not palpable. HEART: First and second heart sounds are normal; no edema. LUNGS: Respiratory rate normal; clear to auscultation. ABDOMEN: Soft, nontender, liver spleen not palpable, no masses palpable. Oro catheter with some hematuria the back PSYCH: Alert and oriented x3; mood and affect normal. MUSCULOSKELETAL:No Clubbing/cyanosis;muscles-grossly intact NEUROLOGICAL: Cranial nerves grossly intact; no facial asymmetry, power and sensation grossly intact. LYMPHATICS: No lymph nodes palpable in the axilla and neck INVESTIGATIONS, reviewed in the clinical context: White count 9.2 hemoglobin 15.9 platelets 227 potassium 4.7 BUN 27 creatinine 1.44 Ultrasound kidney bladder: Right kidney: Dilated renal pelvis. Left kidney complex solid vascular area 5.2/5.4/3.9 cm. Cortical thinning bilaterally. CT urogram with and without contrast: Cortical thinning bilaterally. No renal calculi seen. Left kidney mass 6.4 x 4.2 cm. Bilateral ureters did not show any obstructing mass or calculus. Additional evidence of DJD changes. UA positive for bacteria, yeast, RBC more than 182 Coronavirus [PCR]: Not detected Previous labs: Creatinine 1.0 in October 2020 Assessment and plan: -New onset of hematuria for last 2 days in the patient's had a Oro catheter for 2 years. Patient's had known bladder cancer treated with radiation treatment in the past. Ultrasound is not showing a left kidney mass 5.4 cm. Intraluminal bladder growth in the wall cannot be ruled out. Patient may need a cystoscopy. Urology consulted. IV fluids. -Acute kidney injury, likely prerenal IV fluids -Right-sided moderate hydronephrosis Follow with nephrology -Chronic kidney disease with evidence of bilateral cortical thinning on ultrasound. Cause unclear. Stage II. 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 Suspicious for renal cell carcinoma. 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 Repeat BMP in the morning. Eliquis on hold because of hematuria. Repeat CBC in the morning. Past Medical History Past Medical History: Asthma, Cancer, Diabetes Mellitus, Hypertension, Prostate Disorder Additional Past Medical History / Comment(s): wound rt knee, prostate cancer History of Any Multi-Drug Resistant Organisms: MRSA, VRE Date of last positivie culture/infection: 11/07/16 VRE; 09/13/19 MRSA MDRO Source:: VRE-Right Knee; MRSA-RIGHT KNEE Past Surgical History: Joint Replacement, Orthopedic Surgery, Prostate Surgery Additional Past Surgical History / Comment(s): rt hip replacement, rt femur replaced with titanium sonia Past Anesthesia/Blood Transfusion Reactions: No Reported Reaction Past Psychological History: No Psychological Hx Reported Smoking Status: Former smoker Past Alcohol Use History: Occasional Past Drug Use History: None Reported - Past Family History Mother Family Medical History: Cancer Additional Family Medical History / Comment(s): breast cancer Medications and Allergies Home Medications Medication Instructions Recorded Confirmed Type Tamsulosin [Flomax] 0.4 mg PO DAILY 02/01/15 04/06/21 History Albuterol Inhaler [Ventolin Hfa 2 puff INHALATION RT-QID PRN 06/16/20 04/06/21 History Inhaler] Amoxicillin 250 mg PO DAILY 06/16/20 04/06/21 History Apixaban [Eliquis] 2.5 mg PO BID 06/16/20 04/06/21 History Allergies Allergy/AdvReac Type Severity Reaction Status Date / Time hydrocodone bitartrate AdvReac Intermediate Hallucinati Verified 04/06/21 10:02 [From Vicodin] ons tramadol HCl [From Ultram] AdvReac Intermediate Confusion Verified 04/06/21 10:02 Physical Exam Vitals: Vital Signs Temp Pulse Pulse Resp BP BP BP 04/06/21 14:10 97.8 F 71 18 112/71 04/06/21 07:55 97.6 F 79 18 105/73 04/06/21 04:09 97.8 F 75 14 123/77 04/06/21 03:00 97.9 F 79 18 101/73 04/06/21 00:12 92 17 142/98 04/05/21 22:23 97.8 F 95 18 137/71 Pulse Ox 04/06/21 14:10 96 04/06/21 07:55 96 04/06/21 04:09 98 04/06/21 03:00 97 04/06/21 00:12 98 04/05/21 22:23 98 Intake and Output 04/06/21 04/06/21 04/06/21 06:59 14:59 22:59 Intake Total 420 Output Total 1050 Balance 420 -1050 Intake: Intake, IV Titration 420 Amount Sodium Chloride 0.9% 1, 420 000 ml @ 130 mls/hr IV . [id number] [facility] Rx#:[id number] Output: Urine 1050 Other: Weight 88.451 kg Results CBC & Chem 7: 04/06/21 00:01 04/06/21 12:16 Labs: Abnormal Lab Results - Last 24 Hours (Table) 04/06/21 04/06/21 04/06/21 Range/Units 00:01 00:01 06:56 Sodium 135 L (137-145) mmol/L BUN 27 H (9-20) mg/dL Creatinine 1.44 H (0.66-1.25) mg/dL Glucose 158 H (74-99) mg/dL POC Glucose (mg/dL) 117 H (75-99) mg/dL Urine RBC >182 H (0-5) /hpf Urine WBC 43 H (0-5) /hpf Urine Bacteria Rare H (None) /hpf Urine Yeast (Budding) Many H (None) /hpf 04/06/21 04/06/21 Range/Units 11:07 16:12 Sodium (137-145) mmol/L BUN (9-20) mg/dL Creatinine (0.66-1.25) mg/dL Glucose (74-99) mg/dL POC Glucose (mg/dL) 125 H 177 H (75-99) mg/dL Urine RBC (0-5) /hpf Urine WBC (0-5) /hpf Urine Bacteria (None) /hpf Urine Yeast (Budding) (None) /hpf Microbiology - Last 24 Hours (Table) 04/06/21 00:01 Urine Culture - Preliminary Urine,Voided Thrombosis Risk Factor Assmnt - Choose All That Apply Any of the Below Risk Factors Present?: Yes Each Factor Represents 1 point: Medical pt on bed rest Other Risk Factors: Yes Each Risk Factor Represents 3 Points: Age 75 years or older, History of DVT/PE Thrombosis Risk Factor Assessment Total Risk Factor Score: 7 Thrombosis Risk Factor Assessment Level: High Risk
[2021-04-06 20:12] LABS: Glucose,Whole Blood 135 mg/dL (75-99)
[2021-04-07] MEDS: SODIUM CHLORIDE 0.9% 1,000 ML IV SCH ×2 (00:30→08:55)
[2021-04-07 06:47] LABS: Glucose,Whole Blood 107 mg/dL (75-99)
[2021-04-07 08:54] VITALS: RESP 18
[2021-04-07] MEDS: TAMSULOSIN 0.4 MG CAP.ER.24H PO SCH (08:54)
[2021-04-07 11:18] LABS: Glucose,Whole Blood 143 mg/dL (75-99)
[2021-04-07 11:38] LABS: Basophils # (A) 0.06 X 10*3/uL (0.00-0.10); Basophils % (A) 0.9 %; Eosinophils # (A) 0.38 X 10*3/uL (0.04-0.35); Eosinophils % (A) 5.5 %; HGB 13.1 g/dL (13.0-17.0); Lymphocytes # (A) 1.09 X 10*3/uL (0.90-5.00); Lymphocytes % (A) 15.8 %; MCH 29.2 pg (27.0-32.0); MCV 91.5 fL (80.0-97.0); Mean Platelet Volume 9.2 fL (9.5-12.2); Monocytes # (A) 0.78 X 10*3/uL (0.20-1.00); Monocytes % (A) 11.3 %; Neutrophils # (A) 4.57 X 10*3/uL (1.80-7.70); Neutrophils % (A) 66.1 %; Platelet Count 189 X 10*3/uL (140-440); RBC 4.48 X 10*6/uL (4.40-5.60); RDW 13.6 % (11.5-14.5); WBC 6.91 X 10*3/uL (4.50-10.00)
[2021-04-07 12:17] LABS: African American GFR (CKD) 68.6 (60.0-200.0); Albumin 3.3 g/dL (3.8-4.9); Albumin/Globulin Ratio 1.57 (1.60-3.17); Anion Gap 9.7 mmol/L (10.00-18.00); BUN/Creat Ratio 17.73 Ratio (12.00-20.00); Blood Urea Nitrogen 19.5 mg/dL (9.0-27.0); Calcium 8.5 mg/dL (8.7-10.3); Carbon Dioxide 21.3 mmol/L (20.0-27.5); Globulin 2.1 g/dL (1.6-3.3); Non-African American GFR(CKD) 59.2 (60.0-200.0); Total Bilirubin 0.6 mg/dL (0.30-1.20); Total Protein 5.4 g/dL (6.2-8.2)
[2021-04-07 14:28] VITALS: BP 123/74; PULSE 73; TEMP 98.2
--- NOTE | 2021-04-07 20:53 | P.DS ---
Providers Date of admission: 04/06/21 01:42 Expected date of discharge: 04/07/21 Attending physician: Ramez Brown Consults: 04/06/21 01:43 Consult Physician Routine Consulting Provider: Steven Zarate Consult Reason/Comments: silverio? Do you want consulting provider notified?: Yes Primary care physician: Chava García MD Hospital Course: Chief Complaint: Hematuria through Silverio History of presenting complaint: This is a 89-year-old patient of Dr. García, visiting physicians. Chronic stable medical conditions include diabetes, hypertension, prostate disorder,/cancer, chronic Silverio catheter. He has a Silverio catheter since 2019 and is followed with Dr. Sanders from neurology for the same. He did receive radiation treatment for his cancer the past. At her baseline uses a wheelchair. catheter changed every month. It was changed yesterday. Patient presented with significant bleeding/hematuria in the Silverio for last 2 days. Some clearing this morning. Urology was consulted. Denies any fever and chills. Does have some discomfort in the pelvic area. No change in his bowel pattern. April 07: Urine has been clear. Some blood clots around the Silverio. Urology was informed. Patient to follow-up in the office. Discussed with the patient. He did inform me that eliquis has been stopped about a month ago. And he has not been taking it. CBC in 5 days. Findings of the computed tomography scan were discussed with the patient. Further follow-up with urology outpatient. Discussion and discharge planning more than 35 minutes Consultation: Dr. zarate from neurology Past medical history to include: COVID 19 pneumonia, diabetes, chronic Silverio catheter for 2 years, prostate cancer treated with radiation, right bundle-branch block, Social history: Did smoke in the past. Occasional alcohol. Lives with his . Family history: Breast cancer Physical examination: VITAL SIGNS: 98.2, 73, 18, 123.74, 97% room air GENERAL: BMI 28, laying in bed, awcomfortable EYES: Pupils equal. Conjunctiva normal. HEENT: External appearance of nose and ears normal, oral cavity grossly normal. NECK: JVD not raised; masses not palpable. HEART: First and second heart sounds are normal; no edema. LUNGS: Respiratory rate normal; clear to auscultation. ABDOMEN: Soft, nontender, liver spleen not palpable, no masses palpable. Silverio catheter : With clear urine PSYCHIATRY: Alert and oriented x3; mood and affect normal. MUSCULOSKELETAL:No Clubbing/cyanosis;muscles-grossly intact NEUROLOGICAL: Cranial nerves grossly intact; no facial asymmetry, power and sensation grossly intact. INVESTIGATIONS, reviewed in the clinical context: April 07: White count 6.9 hemoglobin 13.1 potassium 5 creatinine 1.1 White count 9.2 hemoglobin 15.9 platelets 227 potassium 4.7 BUN 27 creatinine 1.44 Ultrasound kidney bladder: Right kidney: Dilated renal pelvis. Left kidney complex solid vascular area 5.2/5.4/3.9 cm. Cortical thinning bilaterally. CT urogram with and without contrast: Cortical thinning bilaterally. No renal calculi seen. Left kidney mass 6.4 x 4.2 cm. Bilateral ureters did not show any obstructing mass or calculus. Additional evidence of DJD changes. UA positive for bacteria, yeast, RBC more than 182 Coronavirus [PCR]: Not detected Previous labs: Creatinine 1.0 in October 2020 Assessment and plan: -New onset of hematuria for last 2 days in the patient's had a Silverio catheter for 2 years. Patient's had known bladder cancer treated with radiation treatment in the past. Ultrasound/computed tomography scan showing a left kidney mass 6.4 cm. : Hematuria cleared. Bleeding likely from the left kidney tumor. Follow-up outpatient with Dr. zarate -Acute kidney injury, likely prerenal: Better IV fluids -Right-sided moderate hydronephrosis Follow with nephrology -Chronic kidney disease with evidence of bilateral cortical thinning on ultrasound. Cause unclear. Stage II. 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 Suspicious for renal cell carcinoma. 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, being followed by urology as an outpatient -Chronic medical debility Patient uses a wheelchair -Right bundle-branch block, chronic disposition: Home Plan - Discharge Summary Discharge Rx Participant: No New Discharge Prescriptions: Continue Tamsulosin [Flomax] 0.4 mg PO DAILY Albuterol Inhaler [Ventolin Hfa Inhaler] 2 puff INHALATION RT-QID PRN PRN Reason: Shortness Of Breath Discontinued Apixaban [Eliquis] 2.5 mg PO BID Amoxicillin 250 mg PO DAILY Discharge Medication List Tamsulosin [Flomax] 0.4 mg PO DAILY 02/01/15 [History] Albuterol Inhaler [Ventolin Hfa Inhaler] 2 puff INHALATION RT-QID PRN 06/16/20 [History] Follow up Appointment(s)/Referral(s): Chava García MD [Primary Care Provider] - 1-2 days [facility], [NON-STAFF] - As Needed Pratik Duckworth MD [STAFF PHYSICIAN] - 1 Week Patient Instructions/Handouts: Hematuria (GEN) Activity/Diet/Wound Care/Special Instructions: Will need w/c van transport home. Please call #[phone]. Discharge Disposition: HOME WITH HOME HEALTH SERVICES
== END 2021-04-07 16:26 | disposition home health service (06) ==
LOC: EC 22:16 → 4SSUR 04-06 01:42
PROVIDERS: ADMIT Hospitalist; ATTEND Hospitalist
DX: R31.0 Gross hematuria (principal); N17.9 Acute kidney failure, unspecified; N28.89 Other specified disorders of kidney and ureter; N13.6 Pyonephrosis; R33.9 Retention of urine, unspecified; I12.9 Hypertensive chronic kidney disease with stage 1 through stage 4 chronic kidney disease, or unspecified chronic kidney disease; E11.22 Type 2 diabetes mellitus with diabetic chronic kidney disease; N18.9 Chronic kidney disease, unspecified; J45.909 Unspecified asthma, uncomplicated; K57.30 Diverticulosis of large intestine without perforation or abscess without bleeding; I45.10 Unspecified right bundle-branch block; I70.0 Atherosclerosis of aorta; R53.81 Other malaise; Z20.822 Contact with and (suspected) exposure to COVID-19; Z79.84 Long term (current) use of oral hypoglycemic drugs; Z79.01 Long term (current) use of anticoagulants; Z79.899 Other long term (current) drug therapy; Z88.5 Allergy status to narcotic agent; Z85.46 Personal history of malignant neoplasm of prostate; Z86.14 Personal history of Methicillin resistant Staphylococcus aureus infection; Z16.22 Resistance to vancomycin related antibiotics; Z96.641 Presence of right artificial hip joint; Z87.891 Personal history of nicotine dependence; Z92.3 Personal history of irradiation; Z87.01 Personal history of pneumonia (recurrent); Z86.16 Personal history of COVID-19; Z85.51 Personal history of malignant neoplasm of bladder; Z99.3 Dependence on wheelchair; Z96.0 Presence of urogenital implants; Z86.711 Personal history of pulmonary embolism; Z86.718 Personal history of other venous thrombosis and embolism; Z87.2 Personal history of diseases of the skin and subcutaneous tissue; Z80.3 Family history of malignant neoplasm of breast
CPT/HCPCS: 96361 ×2; 96365; 96375; 99285; 36415; 80053 ×2; 82150; 82565; 83690; 85025 ×2; 85610; 85730; 81001; 87086; 87635; 76770; 74178; 74400; G0378 ×2; J2270; J0696; Q9967

== ENCOUNTER 2021-05-11 16:19 | Emergency (ER) | payer MEDICARE ==
--- NOTE | 2021-05-11 17:46 | ED ---
General Adult HPI - General Stated complaint: NEED CATH Time Seen by Provider: 05/11/21 16:33 Source: patient, RN notes reviewed, old records reviewed - History of Present Illness Initial comments: 89-year-old male history of chronic indwelling Oro catheter history of prostate cancer as well as renal cell carcinoma presenting with need for catheter replacement. Patient at home care nurse today who had removed his previous Oro catheter and was unable to reinsert a replacement. Patient states there was a little bit of bleeding from the penis. He denies fever. Denies abdominal pain. Denies vomiting. - Related Data Home Medications Medication Instructions Recorded Confirmed Tamsulosin [Flomax] 0.4 mg PO DAILY 02/01/15 04/06/21 Albuterol Inhaler [Ventolin Hfa 2 puff INHALATION RT-QID PRN 06/16/20 04/06/21 Inhaler] Allergies Allergy/AdvReac Type Severity Reaction Status Date / Time hydrocodone bitartrate AdvReac Intermediate Hallucinati Verified 04/06/21 10:02 [From Vicodin] ons tramadol HCl [From Ultram] AdvReac Intermediate Confusion Verified 04/06/21 10:02 Review of Systems ROS Statement: Those systems with pertinent positive or pertinent negative responses have been documented in the HPI. ROS Other: All systems not noted in ROS Statement are negative. Past Medical History Past Medical History: Asthma, Cancer, Diabetes Mellitus, Hypertension, Prostate Disorder Additional Past Medical History / Comment(s): wound rt knee, prostate cancer History of Any Multi-Drug Resistant Organisms: MRSA, VRE Date of last positivie culture/infection: 11/07/16 VRE; 09/13/19 MRSA MDRO Source:: VRE-Right Knee; MRSA-RIGHT KNEE Past Surgical History: Joint Replacement, Orthopedic Surgery, Prostate Surgery Additional Past Surgical History / Comment(s): rt hip replacement, rt femur replaced with titanium sonia Past Anesthesia/Blood Transfusion Reactions: No Reported Reaction Past Psychological History: No Psychological Hx Reported Smoking Status: Former smoker Past Alcohol Use History: Occasional Past Drug Use History: None Reported - Past Family History Mother Family Medical History: Cancer Additional Family Medical History / Comment(s): breast cancer General Exam General appearance: alert, in no apparent distress Head exam: Present: atraumatic, normocephalic Eye exam: Present: normal appearance, PERRL ENT exam: Present: normal exam Neck exam: Present: normal inspection. Absent: tenderness, meningismus Respiratory exam: Present: normal lung sounds bilaterally. Absent: respiratory distress, wheezes Cardiovascular Exam: Present: regular rate, normal rhythm GI/Abdominal exam: Present: soft. Absent: distended, tenderness, guarding exam: Present: normal inspection. Absent: urethral discharge, scrotal swelling Neurological exam: Present: alert, oriented X3, CN II-XII intact. Absent: motor sensory deficit Psychiatric exam: Present: normal affect, normal mood Skin exam: Present: warm, dry, intact, cyanosis. Absent: diaphoretic Course Vital Signs 05/11/21 16:33 Pulse Rate 83 Respiratory 18 Rate Blood Pressure 160/88 O2 Sat by Pulse 97 Oximetry Medical Decision Making - Medical Decision Making Oro catheter is replaced in the emergency department with a 18-[place]izen [place] coud by nursing staff. Patient tolerates procedure well. There is clear yellow urine falling. Patient is stable for discharge with urology follow-up. Disposition Clinical Impression: Presence of indwelling Oro catheter, Encounter for Oro catheter replacement Disposition: HOME SELF-CARE Condition: Fair Instructions (If sedation given, give patient instructions): Oro Catheter Placement and Care (ED) Is patient prescribed a controlled substance at d/c from ED?: No Referrals: Chava García MD [Primary Care Provider] - 1-2 days Pratik Duckworth MD [STAFF PHYSICIAN] - 1-2 days Time of Disposition: 17:46
[2021-05-11 18:37] VITALS: BP 158/80; PULSE 82; RESP 16; TEMP 98.1
== END 2021-05-11 19:00 | disposition home or self-care (01) ==
LOC: EC 16:19
DX: Z46.6 Encounter for fitting and adjustment of urinary device (principal); I10 Essential (primary) hypertension; E11.9 Type 2 diabetes mellitus without complications; J45.909 Unspecified asthma, uncomplicated; Z87.891 Personal history of nicotine dependence; Z88.5 Allergy status to narcotic agent
CPT/HCPCS: 99283